=== PATIENT | male | born 1955 | race Caucasian/White ===

== ENCOUNTER → 2024-05-16 15:40 | Outpatient (REF) | payer OTHER, SELFPAY | LOC: MRI 3T 15:40 | PROVIDERS: ATTENDING PHYSICIAN Nurse Practitioner Adult Health; FAMILY PHYSICIAN Family Medicine | DX: I63.9 Cerebral infarction, unspecified (principal); R41.3 Other amnesia | CPT/HCPCS: 70553; A9575 ==

== ENCOUNTER 2025-01-28 10:51 | Inpatient (IN) | payer OTHER, SELFPAY ==
[2025-01-26] VITALS (9 sets, daily range): BP systolic 115–157; BP diastolic 68–89; BMI 21.7; BMI 21.3
[2025-01-26 09:54] LABS: Glucose - Point of Care 147 mg/dl (70-99)
--- NOTE | 2025-01-26 10:01 | ED.GENMED ---
History of Present Illness
General
Chief Complaint: Weakness
Source: patient
Exam Limitations: none
Time Seen by Provider: 01/26/25 09:51
History of Present Illness
History of Present Illness:
69yoM with a history of multiple prior CVA/TIAs with baseline R sided weakness and antiphospholipid syndrome on Coumadin presenting via EMS for evaluation after an episode of weakness. He went to bed at 11:30am and was normal at that time. Patient
woke up this morning around 9am and felt disoriented when he got of bed. He needed assistance standing but this is not unusual for him. He was on the toilet this morning and had a bowel movement. His R sided weakness worsened and son called EMS.
EMS arrived around 9:15am and his R side was completely flaccid. Symptoms resolved after a few minutes and he is now back to baseline. He is asymptomatic currently and is requesting to drink a coffee. He denies any headache, paresthesias, speech
disturbance, visual changes, chest pain, shortness of breath.
Phy Exam
General Physical Exam
General Presentation: well appearing and no apparent distress
General age: appears stated age
General Skin: warm and dry
General Habitus: normal
General Mental: alert
ENT Exam
ENT Exam: normocephalic
Eye Exam
Eye Exam: PERRL, EOMI and conjunctiva normal
Cardiovascular Exam
Cardiovascular Exam: regular rate/rhythm
Pulmonary Exam
Pulmonary Exam: lungs clear, no respiratory distress, no rales, no crackles and no rhonchi
Neurological Exam
Neurological Exam: alert, CN II-XII intact, speech normal and other (RUE is contracted. Mild R sided weakness which is baseline per patient. Able to lift RUE/RLE against gravity. No other focal neuro deficits noted.)
Katie Coma Scale
Eye Opening: Spontaneous
Verbal Response: Oriented
Motor Response: Obeys Commands
GCS Total Score: 15
Skin Exam
Skin Exam: normal color and warm/dry
Psychiatric Exam
Psychiatric Exam: normal mood/affect
Course
Orders/Labs/Results
Orders:
Orders
01/26/25 09:56
Cardiac Monitoring- Treatment ONCE
01/26/25 09:57
Electrocardiogram (*1) Urgent
Reason for Study: TIA/Stroke
CT Head W/o Iv Contrast Urgent
Comment:
Reason For Exam: TIA
EKG- Treatment ONCE
01/26/25 10:02
Complete Blood Count/With Diff Urgent
Comprehensive Metabolic Panel Urgent
Manual Differential Urgent
Troponin I Urgent
01/26/25 10:19
Prothrombin Time Urgent
01/26/25 11:35
Urinalysis Reflex To Culture Urgent
0.9% Sodium Chloride 500 ml [Nss] 500 ml IV BOLUS
01/26/25 12:18
Admit/Transfer Patient As Directed
Co-Sign Provider:
Level of Care: Observation services
Assign to:: Telemetry
Physician / Group: martha,yi
Diagnosis: TIA/CVA
Reason for Telemetry: CVA/TIA
Date to Stop Telemetry: 01/29/25
Time to Stop Telemetry: 11:00
PRN Pain Medication Management As Directed
May give lesser potent ordered pain med per pt: Yes
preference::
Protocol:: Medication orders for pain may be administered in a
manner that supports deferring to patient preference
when the pt is:
- Requesting an ordered lesser potent pain medication.
Least to most potent pain medications are defined
as: acetaminophen < NSAID < tramadol < opioids
(morphine, oxycodone, hydromorphone).
- Requesting a lesser dose of the same medication IF
ORDERED.
- Requesting a less intrusive route of administration
if both routes are prescribed by the provider (PO <
IV).
01/26/25 12:20
Code Status As Directed
Resuscitation Status: Full Code
01/29/25 11:00
DC Protocol for Telemetry ONCE
Abnormal Lab Results
01/26/25 01/26/25 01/26/25
09:53 10:02 10:19
RBC 4.36 L 10^6/uL
(4.70-6.10)
Hct 38.8 L %
(39.0-52.0)
Plt Count 74 L 10^3/uL
(130-400)
MPV 11.7 H fL
(7.4-10.4)
Abs Neuts (Manual) 7.3 H 10^3/uL
(1.4-6.5)
Segmented Neutrophils 78 H %
(42-75)
Band Neutrophils 10 H %
(0-3)
Lymphocytes (Manual) 4 L %
(20-51)
PT 15.6 H Sec
(11.4-14.6)
BUN 33 H mg/dl
(9-20)
Creatinine 1.8 H mg/dL
(0.7-1.3)
Glucose 159 H mg/dl
(70-99)
POC Glucose 147 H mg/dl
(70-99)
01/26/25 10:02
01/26/25 10:02
Vital Signs
Initial and Last Documented VS:
Initial Vital Signs
Pulse Resp BP Pulse Ox
66 18 122/68 96
01/26/25 09:53 01/26/25 09:53 01/26/25 09:53 01/26/25 09:53
Last Documented Vital Signs
Pulse Resp BP Pulse Ox
60 11 115/68 100
01/26/25 10:15 01/26/25 10:15 01/26/25 10:00 01/26/25 10:15
MDM/Problems Addressed
Differential Diagnosis Includes:
69yoM here after an episode of R sided weakness. Hx of multiple prior strokes with baseline R sided weakness. R side was completely flaccid on EMS arrival. Symptoms now resolved and he is back to baseline with no complaints. On Coumadin. VSS. He is
awake, alert, with a GCS of 15. RUE contracture noted. Able to lift RUE/RLE against gravity. No focal deficits noted. Differential diagnosis includes but is not limited to: TIA, stroke recrudescence, orthostasis, vasovagal episode
Initial ED plan: Check cardiac labs, INR, EKG, and CT head.
*EKG
Interpreted by ED Provider?: Yes
EKG Intrepretation Date: 01/26/25
Heart Rate: 59
Rate: bradycardiac
Rhythm: sinus
[place]: left axis deviation
Interval: normal interval
QRS Pattern: normal QRS
Ischemia: no ischemia
*Critical Care Note
Total Time (30-74mins, 75-104mins- exclusive of procedures): Not Applicable
Update Note
Update Note:
CT head negative for acute findings. Creatinine 1.8, unclear baseline although patient and caregiver deny any prior history of CKD. INR subtherapeutic at 1.2. Platelets 74 which caregiver states is baseline. IV fluid bolus ordered and patient
admitted for further management.
ED Attending Note
-
Portions of this chart may have been created with voice recognition software.� Occasional wrong word or��sound alike� substitutions may have occurred due to the inherent limitations of voice recognition software.
Discharge Plan
Departure
Patient Disposition: Admit
Date of Disposition: 01/26/25
Time of Disposition: 11:38
Presentation/result/management discussed w/ accepting MD/DO: Hospitalist
Discharge Problem:
Right sided weakness, Acute kidney injury, Subtherapeutic international normalized ratio (INR)
Prescriptions:
No Action
atorvastatin 20 mg Tablet
20 mg PO DAILY
donepezil 10 mg Tablet
10 mg PO DAILY
Colace 50 mg Capsule
50 mg PO DAILY
Theragen Tablet
1 tab PO DAILY
amlodipine 5 mg Tablet
5 mg PO DAILY
warfarin 5 mg Tablet
5 mg PO DAILY
escitalopram oxalate 20 mg Tablet
20 mg PO DAILY
cholecalciferol (vitamin D3) [Vitamin D3] 50 mcg (2,000 unit) Tablet
50 mcg PO DAILY
Referrals:
Lynsey Calzada NP [Family Provider] -
Interventions
Interventions:
*Risk Screen - Suicide Last Done: 01/26/25 09:53
*Neglect/Abuse Screening Last Done: 01/26/25 09:53
ED- Cardiac Assessment Last Done: 01/26/25 10:10
ED- Neurological Assessment Last Done: 01/26/25 10:10
ED- Pulmonary Assessment Last Done: 01/26/25 10:10
Discharge Date and Time
Print Language: SPANISH
[2025-01-26 10:19] LABS: Hematocrit 38.8 % (39.0-52.0); Hemoglobin 13.2 g/dL (13.0-18.0); Mean Corpuscular Hgb 30.3 pg (27.0-31.0); Red Blood Cell Count 4.36 10^6/uL (4.70-6.10); Red Cell Dist. Width 13.3 % (11.5-14.5); White Blood Cell Count 8.4 10^3/uL (4.8-10.8)
[2025-01-26 10:24] LABS: ALT (SGPT) 37 U/L (0-50); AST (SGOT) 37 U/L (17-59); Alkaline Phosphatase 84 U/L (38-126); Blood Urea Nitrogen 33 mg/dl (9-20); Calcium 9.3 mg/dl (8.4-10.2); Carbon Dioxide 26 mmol/L (22-30); Chloride 105 mmol/L (98-107); Estimated Creatinine Clearance 39 ml/min; Glucose 159 mg/dl (70-99); Potassium 3.9 mmol/L (3.5-5.1); Sodium 140 mmol/L (135-145); Total Bilirubin 0.7 mg/dl (0.2-1.3); eGFR 40.24
[2025-01-26 10:34] LABS: Troponin I < 0.012 ng/ml
[2025-01-26 10:43] LABS: Absolute Neutrophils -Man Diff 7.3 10^3/uL (1.4-6.5); Band Neutrophils 10 % (0-3); Eosinophils 1 % (0-6); Lymphocytes 4 % (20-51); Mean Platelet Volume 11.7 fL (7.4-10.4); Monocytes 7 % (2-9); Normal RBC Morphology Yes; Platelet Count 74 10^3/uL (130-400); Platelets Checked Yes; Segmented Neutrophils 78 % (42-75); Total Cells Counted 100
[2025-01-26 10:48] LABS: INR 1.21; PT 15.6 Sec (11.4-14.6)
--- NOTE | 2025-01-26 11:56 | HPS.HSE ---
Addendum entered and electronically signed by DAVIDSON Cates 01/26/25 19:16:
added Abdielppra as per neurology.
Original Note:
Family Physician
-
Family Physician: Lynsey Calzada NP
Chief Complaint
-
Worsening weakness
History of Present Illness
69yoM with a history of multiple prior CVA/TIAs with baseline R sided weakness and antiphospholipid syndrome on Coumadin presenting via EMS for evaluation after an episode of weakness. patient presented with confusion and worsening right sided
weakness. he complained of JOHNSTON.denied numbness, tingling, or swallowing issues. denied fever, chills, congestion, cough. denied chest pain, sob. denied abdominal pain,n,v,d.denied dysuria or hematuria. as per ER note, his right was flaccid when EMS
reached to help him, which patient does not remember.
head CT with no acute findings. admitting for further management.
Medical History
Past Medical History
Past Medical History: Reports Other
Additional Past Medical History:
Hypertension
CVA
CKD stage III
History of mononucleosis
Antiphospholipid antibody syndrome
Anticardiolipin antibody syndrome
A-fib
Hyperlipidemia
Thrombocytopenia
Retinal artery occlusion
Past Surgical History: Reports Other
Additional Past Surgical History:
wisdom Tooth extraction
Social History
Tobacco: Non-smoker
Alcohol: None
Drug: None
Personal: Single
Living: With Family
Family History
Family History: Not pertinent
Allergies / Home Medications
Allergies reflects when Allergies were last updated in [facility].
Home Medications with original date entered in [facility]
Allergy/Medication List:
Allergies
Allergy/AdvReac Type Severity Reaction Status Date / Time
Penicillins Allergy Rash Verified 01/26/25 10:01
Review of Systems
-
Constitutional: Reports No Symptoms
EENT: Reports No Symptoms
Respiratory: Reports No Symptoms
Cardiac: Reports No Symptoms
Abdomen/GI: Reports No Symptoms
: Reports No Symptoms
Musculoskeletal: Reports No Symptoms
Skin: Reports No Symptoms
Neurological: Reports Headache and Weakness
Endocrine: Reports No Symptoms
Hematologic/Lymphatic: Reports No Symptoms
Psych: Reports No Symptoms
Physical Exam
Vital Signs
Vital Signs
Pulse Resp BP Pulse Ox
60 11 115/68 100
01/26/25 10:15 01/26/25 10:15 01/26/25 10:00 01/26/25 10:15
Physical Exam
General: Well Developed, Well Nourished and No Apparent Distress
HEENT: NormoCephalic, Moist mucous membranes and Atraumatic
Respiratory: Clear
Cardiac: S1/S2 and Regular Rhythm; No Murmur or Rub
GI: Soft, Non Tender, Non Distended and Normal Bowel Sounds; No Organomegaly
Rectal: Deferred by Provider
Musculoskeletal: No Clubbing, No Cyanosis and No Edema
Skin: No Rash
Neuro: Nonfocal/grossly intact and Other (right arm contracted and weakness)
Psych: Calm
Laboratory Results
-
01/26/25 10:02
01/26/25 10:02
Laboratory Results
PT 15.6 Sec (11.4-14.6) H 01/26/25 10:19
INR 1.21 01/26/25 10:19
Total Bilirubin 0.7 mg/dl (0.2-1.3) 01/26/25 10:02
AST 37 U/L (17-59) 01/26/25 10:02
ALT 37 U/L (0-50) 01/26/25 10:02
Alkaline Phosphatase 84 U/L (38-126) 01/26/25 10:02
Troponin I < 0.012 ng/ml 01/26/25 10:02
Data Reviewed
-
CT Scan: Report Reviewed by me
Lab Data: Labs Reviewed by me
Impression/Plan
-
# Right-sided weakness/metabolic encephalopathy r/o acute CVA/TIA
# History of multiple CVA/TIA with baseline right-sided weakness
- Head CT with no impression of no acute intracranial abnormality
-obatin MRI of brain
-UA pending
-statin
-PT/OT
-obtain a1c, lipid profile
-neurology consult
# History of thrombocytopenia
- Platelets 74
-ctm
# CKD stage IIIa
- Creatinine 1.8
# Essential hypertension
- Norvasc continue with hold parameters
# Hyperlipidemia
- Statin continued
# Depression/anxiety/memory problem
- Citalopram, Aricept continued
# Antiphospholipid syndrome
- Warfarin continued
- INR 1.21
- Will give Coumadin 7.5 tonight
- Daily PT/INR
#DVT prophylaxis
-SCD
#CODE status
-full code
--- NOTE | 2025-01-26 12:03 | W.PN.UPDATE ---
Addendum entered and electronically signed by Mansoor Guerin MD 01/26/25 13:18:
HX thrombocytopenia
HX APLS on chr Coumadin
- Hold off on ASA for now
- awaited Neuro consult
Original Note:
Update Note
Progress Note Update
This note serves as an addendum to the H&P by associate java developer LENORA Rosa UP
HPI
69M HX multiple prior CVA/TIAs with baseline residual R sided weakness, HX antiphospholipid syndrome on Coumadin presenting via EMS :
- for evaluation after an episode of weakness
- went to bed at 11:30pm and was normal at that time.
- woke up this morning around 9am and felt disoriented when he got of bed.
- He needed assistance standing but this is not unusual for him.
- while he was on the toilet this morning and had a bowel movemen noted R sided weakness worsened and son called EMS. -- EMS arrived around 9:15am and his R side was completely flaccid.
- Symptoms resolved after a few minutes and he is now back to baseline.
- He is asymptomatic currently and is requesting to drink a coffee.
ROS:
He denies any headache, paresthesias, speech disturbance, visual changes, chest pain, shortness of breath.
Vital Signs
Pulse Resp BP Pulse Ox
60 11 115/68 100
01/26/25 10:15 01/26/25 10:15 01/26/25 10:00 01/26/25 10:15
Lab
01/26/25
10:02
WBC 8.4
Hgb 13.2
Plt Count 74 L
Segmented Neutrophils 78 H
Band Neutrophils 10 H
Potassium 3.9
Carbon Dioxide 26
BUN 33 H
Creatinine 1.8 H
eGFR 40.24
Troponin I < 0.012
HCT: No acute intracranial abnormality.
Reviewed VS:
PE
Gen: NAD , Nl speech and nl language
HEENT: chr Rt sided facilla weakness
Neck: supple
Lungs: CTA
Cor: RRR S1 S2
Abdomen: benign exam
BLENDER:alert, CN II-XII intact, speech normal and other (RUE is contracted. Mild R sided weakness which is baseline per patient. Able to lift RUE/RLE against gravity. No other focal neuro deficits noted.)
MS: no edema
Psych: nl mood and affect
Data
Allergies
Allergy/AdvReac Type Severity Reaction Status Date / Time
Penicillins Allergy Rash Verified 01/26/25 10:01
Home Medications
amlodipine 5 mg tablet 5 mg PO DAILY 01/26/25
atorvastatin 20 mg tablet 20 mg PO DAILY 01/26/25
cholecalciferol (vitamin D3) 50 mcg (2,000 unit) tablet (Vitamin D3) 50 mcg PO DAILY 01/26/25
docusate sodium 50 mg capsule 50 mg PO DAILY 01/26/25
donepezil 10 mg tablet 10 mg PO DAILY 01/26/25
escitalopram oxalate 20 mg tablet 20 mg PO DAILY 01/26/25
therapeutic multivitamin 1 tab PO DAILY 01/26/25
warfarin 5 mg tablet 5 mg PO DAILY 01/26/25
HCT: No acute intracranial abnormality.
NO PRIOR hospitalist or admission admission:
ASSESSMENT & PLAN
Pending Rx reconciliation
An episode of worsening prior chr R sided weakness with contracture with spontaneous resolution : TIA vs CVA
Reports back to baseline with no complaints.
HX multiple prior strokes with baseline R sided weakness.
On chr Coumadin by sub Rxtic INR 1.21
HX Chr gait dysfunction use walker
- RUE contracture
- Able to lift RUE/RLE against gravity.
- No new focal deficits noted
- NEG HCT for acute process
- ASA daily
- Brain MRI in AM
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
- Neurology consulted
HX HX antiphospholipid syndrome on Coumadin
- Subtherapeutic INR 1.21
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
- Daily INR
Renal insufficiency : Cr 1.8, eGFR 40
HX CKD3
- Avoid Nephrotoxic agents
Essential HTN
HLD
- c/w amlodipine 5 mg PO DAILY
- atorvastatin 20 mg PO DAILY
HX Vascular MCI vs Dementia
- on Donepezil ???
DVT Px: on Coumadin
Full code
Obs TLM
[2025-01-26] MEDS: NSS 500 IV (12:32)
--- NOTE | 2025-01-26 12:40 | CM ---
Met with patient. 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 Up full flight to bedroom and full bathroom. He does not drive. He uses rollator or rolling walker. He has shower seat and shower rails.
History of CVA. No history of SNF. Has [facility] come check his INR.
PCP Lynsey Calzada
Pharmacy:: [facility]
HIs primary contact is his neighbor João who is a nurse. Patient agreed to have Secondary contact, Son Rodrick added.
Patient does not do any primary care provider.
CM to watch for discharge needs.
PLAN: home.
[2025-01-26 14:28] LABS: Glycohemoglobin (HgbA1c) 5.4 % (4.0-5.6)
[2025-01-26] MEDS: COUMADIN 7.5 MG PO (17:45)
--- NOTE | 2025-01-26 18:50 | CON.NEURO ---
Neuro Assessment/Plan
Assessment
69 year old man multiple prior strokes, residual right sided weakness, Afib, antiphospholipid, on Coumadin, presents with episode of right sided flacid lasting several minutes. as he has had the same event 6 times, this event would be a simple
partial seizure. you can't have the same TIA 6 times.
brain MRI showing numerous chronic strokes left frontal, left parietal, left internal capsule, bilateral basal ganglia
Plan
Start Keppra 500 BID
stroke secondary prevention continue Coumadin, Lipitor 20
Consultation
Order
Date of Consultation: 01/26/25
Requesting Provider: Mansoor Guerin
Reason for Consult: right sided weakness
Subjective/Objective
Subjective Data
Date of Service: January 26, 2025
from h&p:
69yoM with a history of multiple prior CVA/TIAs with baseline R sided weakness and antiphospholipid syndrome on Coumadin presenting via EMS for evaluation after an episode of weakness. patient presented with confusion and worsening right sided
weakness. he complained of JOHNSTON.denied numbness, tingling, or swallowing issues. denied fever, chills, congestion, cough. denied chest pain, sob. denied abdominal pain,n,v,d.denied dysuria or hematuria. as per ER note, his right was flaccid when EMS
reached to help him, which patient does not remember.
This afternoon patient tells me that he actually does remember the event, and that it has happened ~6 times though he hadn't presented for evaluation
Objective Data
Vital Signs
Temp Pulse Resp BP Pulse Ox
37.2 C 80 18 120/70 98
01/26/25 15:32 01/26/25 15:32 01/26/25 15:32 01/26/25 15:32 01/26/25 15:32
Lab Results
01/26/25 10:02
01/26/25 10:02
PT 15.6 Sec (11.4-14.6) H 01/26/25 10:19
INR 1.21 01/26/25 10:19
Sodium 140 mmol/L (135-145) 01/26/25 10:02
Potassium 3.9 mmol/L (3.5-5.1) 01/26/25 10:02
BUN 33 mg/dl (9-20) H 01/26/25 10:02
Glucose 159 mg/dl (70-99) H 01/26/25 10:02
Calcium 9.3 mg/dl (8.4-10.2) 01/26/25 10:02
Patient Allergies
Penicillins Allergy (Verified 01/26/25 10:01)
Rash
Physical Exam
-
AAOx3, speech clear, language intact
VFF, EOMI, right facial droop
right spastic hemiparesis 5
Medications
-
Active Medications
Generic Name Dose Route Start Last Admin
Trade Name Freq PRN Reason Stop Dose Admin
Acetaminophen 650 mg 01/26/25 13:43
Acetaminophen 650 Mg Rectal Suppository RECTAL 02/23/25 13:42
Q4HPRN PRN
JOHNSTON, mild pain, or temp >100.4F
Acetaminophen 650 mg 01/26/25 13:43
Acetaminophen 325 Mg Tablet PO 02/23/25 13:42
Q4HPRN PRN
JOHNSTON, mild pain, or temp >100.4F
Amlodipine Besylate 5 mg 01/27/25 08:00
Amlodipine 5 Mg Tablet PO 02/24/25 07:59
DAILY ELIDIA
Atorvastatin Calcium 20 mg 01/27/25 08:00
Atorvastatin (Lipitor) 20 Mg Tablet PO 02/24/25 07:59
DAILY ELIDIA
Cholecalciferol 50 mcg 01/27/25 08:00
Cholecalciferol (Vitamin D3) 50 Mcg Tablet (2,000 Units) PO 02/24/25 07:59
DAILY ELIDIA
Docusate Sodium 100 mg 01/27/25 08:00
Docusate Sodium 100 Mg Capsule PO 02/24/25 07:59
DAILY ELIDIA
Donepezil HCl 10 mg 01/27/25 08:00
Donepezil Hcl 10 Mg Tablet PO 02/24/25 07:59
DAILY ELIDIA
Escitalopram Oxalate 20 mg 01/27/25 08:00
Escitalopram 20 Mg Tablet PO 02/24/25 07:59
DAILY ELIDIA
Warfarin Sodium 5 mg 01/27/25 20:00
Warfarin 5 Mg Tablet PO 02/01/25 19:59
DAILY ELIDIA
Home Medications
�Medication �Instructions �Recorded
amlodipine 5 mg tablet 5 mg PO DAILY 01/26/25
atorvastatin 20 mg tablet 20 mg PO DAILY 01/26/25
cholecalciferol (vitamin D3) 50 50 mcg PO DAILY 01/26/25
mcg (2,000 unit) tablet (Vitamin
D3)
docusate sodium 50 mg capsule 50 mg PO DAILY 01/26/25
donepezil 10 mg tablet 10 mg PO DAILY 01/26/25
escitalopram oxalate 20 mg tablet 20 mg PO DAILY 01/26/25
therapeutic multivitamin 1 tab PO DAILY 01/26/25
warfarin 5 mg tablet 5 mg PO DAILY 01/26/25
[2025-01-26] MEDS: KEPPRA 500 MG PO (20:03)
[2025-01-26 22:52] LABS: Urine Albumin 3+ (Neg - Trace); Urine Bilirubin Negative (Negative); Urine Character Clear (Clear); Urine Color Yellow; Urine Glucose Negative (Negative); Urine Ketone Negative (Negative); Urine Leukocyte Negative (Negative); Urine Nitrite Negative (Negative); Urine Occult Blood Negative (Negative); Urine Urobilinogen Negative (Neg - 1+)
[2025-01-26 23:02] LABS: Urine Mucus Few; Urine Squamous Cell 0-2 /LPF (Few)
[2025-01-26 23:04] LABS: Urine Bacteria Moderate (Negative); Urine Red Blood Cell 0-2 /HPF (0-2); Urine White Cell 0-2 /HPF (0-5)
[2025-01-27] VITALS (8 sets, daily range): BP systolic 126–141; BP diastolic 62–78; PULSE 67–69; O2SAT 98
[2025-01-27] MEDS: NORVASC 5 MG PO (07:23)
[2025-01-27] MEDS: ARICEPT 10 MG PO (07:23)
[2025-01-27] MEDS: LIPITOR 20 MG PO (07:23)
[2025-01-27] MEDS: LEXAPRO 20 MG PO (07:23)
[2025-01-27] MEDS: KEPPRA 500 MG PO ×2 (07:23→19:57)
[2025-01-27] MEDS: VITAMIN D3 (cholecalciferol) 50 MCG PO (07:23)
[2025-01-27] MEDS: COLACE 100 MG PO (07:24)
[2025-01-27 07:56] LABS: INR 1.28; PT 16.3 Sec (11.4-14.6)
--- NOTE | 2025-01-27 08:03 | W.PN.HOSP.TC ---
Addendum entered and electronically signed by Zhou Garcia MD 01/27/25 16:40:
Updated son on phone 01/27
Original Note:
Today's Communication/Plan
-
see bold
Assessment / Plan
Assessment / Plan
HPI: 69yoM with a history of multiple prior CVA/TIAs with baseline R sided weakness and antiphospholipid syndrome on Coumadin presenting via EMS for evaluation after an episode of weakness. patient presented with confusion and worsening right sided
weakness. he complained of JOHNSTON.denied numbness, tingling, or swallowing issues. denied fever, chills, congestion, cough. denied chest pain, sob. denied abdominal pain,n,v,d.denied dysuria or hematuria. As per ER note, his right was flaccid when EMS
reached to help him, which patient does not remember.
#Transient right sided flaccidity
Brain MRI shows numerous chronic strokes
Appreciate neurology input, who feels that this is a simple partial seizure
Patient tends to present with transient right-sided plasticity, he has had the same event 6 times, therefore TIA resulting in the same symptoms 6 time is unlikely
Neurology recommends Keppra 500 mg twice a day
PT rec acute rehab vs SNF
#Antiphospholipid syndrome
INR subtherapeutic on Coumadin
Start therapeutic Lovenox to bridge until INR becomes therapeutic
Currently on Coumadin 5 mg daily at home�he denies missing any doses
Increase coumadin to 7.5 mg daily, check daily INR
#Essential hypertension
Continue Norvasc with hold parameters
#Hyperlipidemia
Continue statin
#Stage IIIa CKD
Creatinine around baseline, continue to monitor
#Thrombocytopenia
Monitor
#Anxiety/depression/cognitive impairment
Continue SSRI, Aricept
DVT prophylaxis�therapeutic Lovenox to bridge to Coumadin as above
Full code
Total time spent to see the patient on the floor, examine the patient, review data and lab results, discuss treatment plan with patient, nursing staff around 51 minutes.
Physical Exam
General: No acute distress
HEENT: Normocephalic, Atraumatic, EOMI, MMM
Respiratory: Clear to Auscultation bilaterally
Cardiac: Normal S1/S2, Regular Rate and Rhythm
GI: Soft, Nontender, Nondistended, Normal Bowel Sounds
Extremities: No Clubbing, Cyanosis, or Edema
Neuro: Mild cognitive impairment noted
Psych: Calm, Cooperative
Anticipated Discharge: Within 24 hours
Subjective/Interval History
-
Date of Service: January 27, 2025
Patient reports resolution of right-sided weakness. He reports taking his Coumadin doses at home as directed. No chest pain, no shortness of breath. No fever, no vomiting.
Objective Data
-
Labs:
Laboratory Results
01/27/25
07:16
WBC Pending
Hgb Pending
Hct Pending
Plt Count Pending
PT 16.3 H
INR 1.28
Sodium Pending
Potassium Pending
Chloride Pending
Carbon Dioxide Pending
BUN Pending
Creatinine Pending
Glucose Pending
Calcium Pending
Vital Signs:
Vital Signs
Temp Pulse Resp BP Pulse Ox
98.5 F 63 18 133/75 98
01/27/25 07:37 01/27/25 07:37 01/27/25 07:37 01/27/25 07:37 01/27/25 07:37
I&O
01/26/25 01/27/25 01/28/25
06:59 06:59 06:59
Intake Total 540 / 540
Output Total 800 / 800
Balance -260 / -260
[2025-01-27 08:12] LABS: Blood Urea Nitrogen 30 mg/dl (9-20); Carbon Dioxide 25 mmol/L (22-30); Chloride 107 mmol/L (98-107); Estimated Creatinine Clearance 43 ml/min; Glucose 94 mg/dl (70-99); HDL Cholesterol 43 mg/dl; LDL Cholesterol, Calculated 70 mg/dl; Potassium 3.7 mmol/L (3.5-5.1); Sodium 140 mmol/L (135-145); Total Cholesterol 137 mg/dl (50-199); Triglyceride 120 mg/dl (10-149); Very Low Density Lipoprotein 24 mg/dl (0-30); eGFR 46.35
[2025-01-27 08:35] LABS: Hematocrit 35.5 % (39.0-52.0); Hemoglobin 12.1 g/dL (13.0-18.0); Mean Corp Hgb Conc. 34.1 g/dL (33.0-37.0); Mean Corpuscular Volume 88.1 fL (80.0-94.0); Mean Platelet Volume 11.3 fL (7.4-10.4); Platelet Count 62 10^3/uL (130-400); Red Blood Cell Count 4.03 10^6/uL (4.70-6.10); Red Cell Dist. Width 13.4 % (11.5-14.5); White Blood Cell Count 1.7 10^3/uL (4.8-10.8)
--- NOTE | 2025-01-27 11:56 | PTOTSP ---
Speech Therapy
Presentation: Patient was partially oriented and cooperative. Patient's speech and language appeared to be WNL during conversation. Patient's pragmatics appeared to be decreased as patient demonstrated difficulty with topic maintenance and
monitoring inappropriate remarks.
Swallowing Function: REWORK OPERATOR observed patient with several bites of regular consistency solids and sips of thin liquids (straw) in which patient appeared to tolerate as he did not exhibit any overt clinical s/sx of aspiration. Patient did, of note,
express difficulty with visualizing his tray during breakfast as his eye glasses are not with him at the hospital.
Recommendations:
1) Regular consistency solids and thin liquids
2) Standard aspiration precautions
3) Medications as tolerated
4) Consideration of cognitive linguistic evaluation given memory complaints and pragmatic difficulty
Plan: REWORK OPERATOR will continue to follow to ensure tolerance; pending hospitalization.
[2025-01-27] MEDS: LOVENOX 70 MG SC (13:05)
[2025-01-27 14:17] LABS: % Basophils 1.2 % (0-2); % Eosinophils 1.2 % (0-6); % Immature Granulocytes 0.6 % (0-0.5); % Lymphocytes 22.6 % (20.5-51.1); % Neutrophils 55.4 % (42.2-75.2); Absolute Lymphocytes 0.4 10^3/uL (1.2-3.4); Absolute Monocytes 0.3 10^3/uL (0.1-0.6); Absolute Neutrophils 0.9 10^3/uL (1.4-6.5); Nucleated Red Blood Cells % 0 % (-)
[2025-01-27] MEDS: COUMADIN 7.5 MG PO (18:30)
[2025-01-28] VITALS (8 sets, daily range): BP systolic 131–150; BP diastolic 71–86; PULSE 78
[2025-01-28] MEDS: LOVENOX 70 MG SC ×3 (00:05→20:13)
--- NOTE | 2025-01-28 02:30 | PTCARENOTE ---
Pt took of tele monitor and refused to have it put back on. Up until this point, pt has been intermittently taking off gown and tele leads, but allowing us to put them back on. House Provider, Ernestine Ruano, notified and aware. Will continue to
monitor.
--- NOTE | 2025-01-28 06:15 | PTCARENOTE ---
After assisting pt in using the urinal and getting back in his hospital gown, pt agreeable to wear tele monitor again.
[2025-01-28 06:55] LABS: Hematocrit 37.4 % (39.0-52.0); Hemoglobin 13.2 g/dL (13.0-18.0); Mean Corp Hgb Conc. 35.3 g/dL (33.0-37.0); Mean Corpuscular Hgb 30.9 pg (27.0-31.0); Mean Corpuscular Volume 87.6 fL (80.0-94.0); Mean Platelet Volume 10.8 fL (7.4-10.4); Platelet Count 68 10^3/uL (130-400); Red Blood Cell Count 4.27 10^6/uL (4.70-6.10); Red Cell Dist. Width 13.4 % (11.5-14.5); White Blood Cell Count 2.2 10^3/uL (4.8-10.8)
[2025-01-28 06:56] LABS: INR 1.59; PT 19.2 Sec (11.4-14.6)
[2025-01-28 10:13] LABS: Blood Urea Nitrogen 23 mg/dl (9-20); Calcium 9.2 mg/dl (8.4-10.2); Carbon Dioxide 22 mmol/L (22-30); Chloride 108 mmol/L (98-107); Estimated Creatinine Clearance 45 ml/min; Glucose 93 mg/dl (70-99); Potassium 4.2 mmol/L (3.5-5.1); Sodium 142 mmol/L (135-145); eGFR 50.08
[2025-01-28] MEDS: NORVASC 5 MG PO (10:13)
[2025-01-28] MEDS: ARICEPT 10 MG PO (10:14)
[2025-01-28] MEDS: LEXAPRO 20 MG PO (10:14)
[2025-01-28] MEDS: VITAMIN D3 (cholecalciferol) 50 MCG PO (10:14)
[2025-01-28] MEDS: COLACE 100 MG PO (10:14)
[2025-01-28] MEDS: KEPPRA 500 MG PO ×2 (10:14→20:13)
[2025-01-28] MEDS: LIPITOR 20 MG PO (10:14)
--- NOTE | 2025-01-28 11:13 | CON.NEURO ---
Neuro Assessment/Plan
Assessment
69 year old man multiple prior strokes, residual right sided weakness, Afib, antiphospholipid, on Coumadin, presents with episode of right sided flacid lasting several minutes. as he has had the same event 6 times, this event would be a simple
partial seizure. you can't have the same TIA 6 times.
brain MRI showing numerous chronic strokes left frontal, left parietal, left internal capsule, bilateral basal ganglia
Plan
Start Keppra 500 BID
stroke secondary prevention continue Coumadin, Lipitor 20
Consultation
Order
Date of Consultation: 01/28/25
Neurology follow-up note
HPI: This is a 69-year-old man who presented to [facility] on with fluctuating right-sided weakness.
Mr. Salazar endorses chronic right sided weakness since his stroke. He is not sure when it was his stroke but states that his right arm has been weak requiring him to use his left hand to feed himself.
The patient has history of cognitive impairment and his medications are being administered by his son. He is unable to recall the name of his neurologist or primary care physician.
He denies numbness in his right arm, headaches, changes in vision, vertigo, seizures, difficulties with swallowing, speech, abnormal movements, or visual hallucinations. He also denies any recent changes in the severity of his right arm weakness
Regarding his medical history, the patient reports having his first stroke approximately a year and a half ago, which was treated at [facility]. He denies a family history of strokes or forgetfulness. The patient reports minimal alcohol use,
stating he 'had a beer,' and denies a history of smoking.
ER VS: 122/68, 66, afebrile
EKG: Sinus bradycardia, QTc�421 ms
PDMP: None
Labs: INR�1.21, WBCs 8.4�2.2, platelets�74�68, creatinine�1.6�1.5, normal sodium, glucose, LDL�70, hemoglobin A1c�5.4
CT head wo contrast�no acute abnormalities, moderate atrophy and chronic multi territorial infarct.
CTA head (05/02/2023)�no focal hemodynamically significant stenosis, aneurysm or occlusion.
PMH: A-fib, MCI, history of strokes, antiphospholipid syndrome on warfarin, thrombocytopenia, right cerebellopontine angle arachnoid cyst, HTN, DLP, CKD, cervical spinal stenosis, vitamin D deficiency, BATOOL
PSH: [place] tooth extraction
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
All: Penicillins
ROS: Constitutional: Negative. Negative for chills, fever and unexpected weight change.
HENT: Negative for ear pain, hearing loss, tinnitus and trouble swallowing.
Eyes: Negative. Negative for photophobia, pain and visual disturbance.
Respiratory: Negative for cough, choking and shortness of breath.
Cardiovascular: Negative for chest pain, palpitations and leg swelling.
Gastrointestinal: Negative for abdominal pain and vomiting.
Endocrine: Negative. Negative for cold intolerance.
Genitourinary: Negative for dysuria, flank pain and urgency.
Musculoskeletal: Negative for back pain, gait problem, neck pain and neck stiffness.
Skin: Negative for rash.
Allergic/Immunologic: Negative. Negative for immunocompromised state.
Neurological: Negative for dizziness, tremors, seizures, speech difficulty, numbness and headaches.
Psychiatric/Behavioral: Negative for behavioral problems, confusion and hallucinations.
General: Well developed. In no acute distress.
Cardio: Regular rate and rhythm without murmur. Extremities are without cyanosis or edema.
Neuro:
Mental Status: Alert, oriented to name, month, year, person. Impaired attention and comprehension. Unable to cross midline. Nonfluent. No hemineglect
Cranial Nerves: Pupils are equally round and reactive to light. EOMs full. Visual nina full to confrontation. No ptosis. No nystagmus. V1-V3 intact to light touch and pinprick bilaterally, symmetric. Face symmetric. Impaired hearing AU.
The palate elevated well. SCMs and traps 5/5. Tongue midline. No dysarthria.
Motor: Right pronator drift. Right distal more than proximal arm weakness. Mild right leg weak (Right elbow�antigravity)
Reflexes: Negative clonus bilaterally.
Sensory: Limited exam due to poor attention
Coordination: Dysmetria on the left
Gait: deferred
Assessment and Plan:
I. Fluctuating right hemiparesis.
II. Chronic encephalopathy (vascular, metabolic,? neurodegenerative)
III. Chronic multi territorial infarct, chronic R vert occlusion
IV. Antiphospholipid syndrome
V. Subtherapeutic INR
. Thrombocytopenia
-Continue Telemetry monitoring
-Brain MRI without batool
-Carotid Doppler ultrasound
-Please obtain medical records from [facility]
-Would hold Coumadin until brain MRI is completed
-Will contact patient's son to obtain collateral history
-DVT prophylaxis.
I personally reviewed all radiology and labs along with past medical records pertinent to current medical problems. Total time spent in patient care is 45 minutes.
Thank you for allowing us to participate in the care of this patient. We will continue to follow. Please do not hesitate to contact us with any questions or concerns.
Subjective/Objective
Subjective Data
Date of Service: January 28, 2025
Objective Data
Vital Signs
Temp Pulse Resp BP Pulse Ox
36.8 C 66 17 137/74 97
01/28/25 07:00 01/28/25 07:00 01/28/25 07:00 01/28/25 07:00 01/28/25 07:00
Lab Results
01/28/25 06:15
01/28/25 06:15
PT 19.2 Sec (11.4-14.6) H 01/28/25 06:15
INR 1.59 01/28/25 06:15
Sodium 142 mmol/L (135-145) 01/28/25 06:15
Potassium 4.2 mmol/L (3.5-5.1) 01/28/25 06:15
BUN 23 mg/dl (9-20) H 01/28/25 06:15
Glucose 93 mg/dl (70-99) 01/28/25 06:15
Calcium 9.2 mg/dl (8.4-10.2) 01/28/25 06:15
LDL Cholesterol, Calc 70 mg/dl 01/27/25 07:16
Patient Allergies
Penicillins Allergy (Verified 01/26/25 10:01)
Rash
Medications
-
Active Medications
Generic Name Dose Route Start Last Admin
Trade Name Freq PRN Reason Stop Dose Admin
Acetaminophen 650 mg 01/26/25 13:43
Acetaminophen 650 Mg Rectal Suppository RECTAL 02/23/25 13:42
Q4HPRN PRN
[place], mild pain, or temp >100.4F
Acetaminophen 650 mg 01/26/25 13:43
Acetaminophen 325 Mg Tablet PO 02/23/25 13:42
Q4HPRN PRN
[place], mild pain, or temp >100.4F
Amlodipine Besylate 5 mg 01/27/25 08:00 01/28/25 10:13
Amlodipine 5 Mg Tablet PO 02/24/25 07:59 5 mg
DAILY ELIDIA Administration
Atorvastatin Calcium 20 mg 01/27/25 08:00 01/28/25 10:14
Atorvastatin (Lipitor) 20 Mg Tablet PO 02/24/25 07:59 20 mg
DAILY ELIDIA Administration
Cholecalciferol 50 mcg 01/27/25 08:00 01/28/25 10:14
Cholecalciferol (Vitamin D3) 50 Mcg Tablet (2,000 Units) PO 02/24/25 07:59 50 mcg
DAILY ELIDIA Administration
Docusate Sodium 100 mg 01/27/25 08:00 01/28/25 10:14
Docusate Sodium 100 Mg Capsule PO 02/24/25 07:59 100 mg
DAILY ELIDIA Administration
Donepezil HCl 10 mg 01/27/25 08:00 01/28/25 10:14
Donepezil Hcl 10 Mg Tablet PO 02/24/25 07:59 10 mg
DAILY ELIDIA Administration
Enoxaparin Sodium 70 mg 01/27/25 10:35 01/28/25 10:13
Enoxaparin Sodium 80 Mg/0.8 Ml Syringe SC 02/24/25 10:34 70 mg
Q12 ELIDIA Administration
Escitalopram Oxalate 20 mg 01/27/25 08:00 01/28/25 10:14
Escitalopram 20 Mg Tablet PO 02/24/25 07:59 20 mg
DAILY ELIDIA Administration
Levetiracetam 500 mg 01/26/25 20:00 01/28/25 10:14
Levetiracetam 500 Mg Regular Release Tablet PO 02/23/25 19:59 500 mg
BID ELIDIA Administration
Warfarin Sodium 7.5 mg 01/27/25 18:00 01/27/25 18:30
Warfarin 7.5 Mg Tablet PO 02/01/25 17:59 7.5 mg
QPM ELIDIA Administration
Home Medications
�Medication �Instructions �Recorded
amlodipine 5 mg tablet 5 mg PO DAILY 01/26/25
atorvastatin 20 mg tablet 20 mg PO DAILY 01/26/25
cholecalciferol (vitamin D3) 50 50 mcg PO DAILY 01/26/25
mcg (2,000 unit) tablet (Vitamin
D3)
docusate sodium 50 mg capsule 50 mg PO DAILY 01/26/25
donepezil 10 mg tablet 10 mg PO DAILY 01/26/25
escitalopram oxalate 20 mg tablet 20 mg PO DAILY 01/26/25
therapeutic multivitamin 1 tab PO DAILY 01/26/25
warfarin 5 mg tablet 5 mg PO DAILY 01/26/25
Vital Signs and Labs
-
Vital Signs and Labs:
Vital Signs
Temp Pulse Resp BP Pulse Ox
36.8 C 66 17 137/74 97
01/28/25 07:00 01/28/25 07:00 01/28/25 07:00 01/28/25 07:00 01/28/25 07:00
Lab Results
01/28/25 06:15
01/28/25 06:15
PT 19.2 Sec (11.4-14.6) H 01/28/25 06:15
INR 1.59 01/28/25 06:15
Sodium 142 mmol/L (135-145) 01/28/25 06:15
Potassium 4.2 mmol/L (3.5-5.1) 01/28/25 06:15
BUN 23 mg/dl (9-20) H 01/28/25 06:15
Glucose 93 mg/dl (70-99) 01/28/25 06:15
Calcium 9.2 mg/dl (8.4-10.2) 01/28/25 06:15
LDL Cholesterol, Calc 70 mg/dl 01/27/25 07:16
Medications
-
Medications:
Generic Name Dose Route Start Last Admin
Trade Name Freq PRN Reason Stop Dose Admin
Acetaminophen 650 mg 01/26/25 13:43
Acetaminophen 650 Mg Rectal Suppository RECTAL 02/23/25 13:42
Q4HPRN PRN
[place], mild pain, or temp >100.4F
Acetaminophen 650 mg 01/26/25 13:43
Acetaminophen 325 Mg Tablet PO 02/23/25 13:42
Q4HPRN PRN
[place], mild pain, or temp >100.4F
Amlodipine Besylate 5 mg 01/27/25 08:00 01/28/25 10:13
Amlodipine 5 Mg Tablet PO 02/24/25 07:59 5 mg
DAILY ELIDIA Administration
Atorvastatin Calcium 20 mg 01/27/25 08:00 01/28/25 10:14
Atorvastatin (Lipitor) 20 Mg Tablet PO 02/24/25 07:59 20 mg
DAILY ELIDIA Administration
Cholecalciferol 50 mcg 01/27/25 08:00 01/28/25 10:14
Cholecalciferol (Vitamin D3) 50 Mcg Tablet (2,000 Units) PO 02/24/25 07:59 50 mcg
DAILY ELIDIA Administration
Docusate Sodium 100 mg 01/27/25 08:00 01/28/25 10:14
Docusate Sodium 100 Mg Capsule PO 02/24/25 07:59 100 mg
DAILY ELIDIA Administration
Donepezil HCl 10 mg 01/27/25 08:00 01/28/25 10:14
Donepezil Hcl 10 Mg Tablet PO 02/24/25 07:59 10 mg
DAILY ELIDIA Administration
Enoxaparin Sodium 70 mg 01/27/25 10:35 01/28/25 10:13
Enoxaparin Sodium 80 Mg/0.8 Ml Syringe SC 02/24/25 10:34 70 mg
Q12 ELIDIA Administration
Escitalopram Oxalate 20 mg 01/27/25 08:00 01/28/25 10:14
Escitalopram 20 Mg Tablet PO 02/24/25 07:59 20 mg
DAILY ELIDIA Administration
Levetiracetam 500 mg 01/26/25 20:00 01/28/25 10:14
Levetiracetam 500 Mg Regular Release Tablet PO 02/23/25 19:59 500 mg
BID ELIDIA Administration
Warfarin Sodium 7.5 mg 01/27/25 18:00 01/27/25 18:30
Warfarin 7.5 Mg Tablet PO 02/01/25 17:59 7.5 mg
QPM ELIDIA Administration
Home Medications
-
Home Medications
amlodipine 5 mg tablet 5 mg PO DAILY 01/26/25
atorvastatin 20 mg tablet 20 mg PO DAILY 01/26/25
cholecalciferol (vitamin D3) 50 mcg (2,000 unit) tablet (Vitamin D3) 50 mcg PO DAILY 01/26/25
docusate sodium 50 mg capsule 50 mg PO DAILY 01/26/25
donepezil 10 mg tablet 10 mg PO DAILY 01/26/25
escitalopram oxalate 20 mg tablet 20 mg PO DAILY 01/26/25
therapeutic multivitamin 1 tab PO DAILY 01/26/25
warfarin 5 mg tablet 5 mg PO DAILY 01/26/25
--- NOTE | 2025-01-28 11:29 | W.PN.HOSP.TC ---
Today's Communication/Plan
-
neuro follow up
follow INR and CBC in AM
Assessment / Plan
Assessment / Plan
69yo M with PMHx of CVA with residual RUE and RLE weakness, APLS on COumadin, progressive vascular dementia, HTN, HLD brought to the hospital with recurrent confusion and RUE weakness similar to prior. He hassame issues on 6 occasions over past
years. As per medical POA - patient has worsening intermittent weakness in RUE for a year and was seeing neurologist in [facility] for that. Stroke was identified as a reason for neurologic deficit. His INR was also subtherapeutic couple of
weeks ago and he was given one additional dose of Warfaring for that.
A/P:
#RUE weakness, fluctuating with PMHX of CVA
#Seizure d/o
Neurologist evaluated: low chance to have repoeated strokes with similar symptoms, concern for seizure activity
Keppra
Seizure precautions
PT/OT - acute rehab
cont home meds
#Advanced dementia, vascular
#Chronic thrombocytopenia
#Leukopenia
patient on the baseline has poor short term memory
Outpatient Neurologist
Concern for amiloid angiopathy - recommended to follow up with established direct of real estate for MGUS w/u
Medical POA will get in touch with direct of real estate to find out if leukopenia new - if so, then might need direct of real estate
#Subtherapeutic INR with APLS
family and friend denied non-compliance
Lovenox bridging warfarin higher dose
#HLD
#essential HTN
#CKD stage 3a
cont home meds
DVT ppx lovenox
Full code
I have spent at least 55min reviewing hcart, test results, communication with consultants and providing direct patient care
Anticipated Discharge: 24 - 48 hours
Subjective/Interval History
-
Date of Service: January 28, 2025
Objective Data
-
Labs:
Laboratory Results
01/28/25
06:15
WBC 2.2 L*
Hgb 13.2
Hct 37.4 L
Plt Count 68 L
PT 19.2 H
INR 1.59
Sodium 142
Potassium 4.2
Chloride 108 H
Carbon Dioxide 22
BUN 23 H
Creatinine 1.5 H
Glucose 93
Calcium 9.2
Vital Signs:
Vital Signs
Temp Pulse Resp BP Pulse Ox
98.2 F 66 17 137/74 97
01/28/25 07:00 01/28/25 07:00 01/28/25 07:00 01/28/25 07:00 01/28/25 07:00
I&O
01/27/25 01/28/25 01/29/25
06:59 06:59 06:59
Intake Total 540 / 540 720 / 720
Output Total 800 / 800 200 / 200
Balance -260 / -260 520 / 520
Review of Systems
-
History Source: Patient
All other systems: Reviewed and negative
Physical Exam
-
General: No Apparent Distress
HEENT: Normocephalic
Respiratory: Clear to Auscultation
GI: Soft, Nontender and Nondistended
Musculoskeletal: No Clubbing, No Cyanosis and No Edema
Skin: Warm
Neuro: Awake, Alert and Other (RUL weakness)
Psych: Calm and Apparent Dementia
--- NOTE | 2025-01-28 11:36 | CM ---
Chart reviewed and human services case manager met with patient and discussed physical therapy recommendations and patient is refusing acute rehab and skilled rehab, patient is adamant that he is returning to home when stable.
Cost of Lovenox 80mg Q12 X 5 days is $55.73
Plan; To follow with patient progress and follow up with physician and patient.
--- NOTE | 2025-01-28 16:37 | W.PN.UPDATE ---
Update Note
Progress Note Update
As per POA: leukopenia with WBC 2.8 in May 2024 - seems to be chronic
[2025-01-28] MEDS: TYLENOL 650 MG PO (22:47)
[2025-01-29 03:51] VITALS: BP 134/74
[2025-01-29 07:00] VITALS: BP 135/78
[2025-01-29 08:11] LABS: INR 1.74; PT 20.5 Sec (11.4-14.6)
[2025-01-29 08:28] LABS: Hemoglobin 12.5 g/dL (13.0-18.0); Mean Corp Hgb Conc. 34.7 g/dL (33.0-37.0); Mean Corpuscular Hgb 30.3 pg (27.0-31.0); Mean Corpuscular Volume 87.4 fL (80.0-94.0); Mean Platelet Volume 10.8 fL (7.4-10.4); Platelet Count 75 10^3/uL (130-400); Red Blood Cell Count 4.12 10^6/uL (4.70-6.10); Red Cell Dist. Width 13.2 % (11.5-14.5); White Blood Cell Count 2.1 10^3/uL (4.8-10.8)
[2025-01-29] MEDS: LEXAPRO 20 MG PO (08:53)
[2025-01-29] MEDS: LIPITOR 20 MG PO (08:53)
[2025-01-29] MEDS: COLACE 100 MG PO (08:53)
[2025-01-29] MEDS: ARICEPT 10 MG PO (08:53)
[2025-01-29] MEDS: NORVASC 5 MG PO (08:53)
[2025-01-29] MEDS: KEPPRA 500 MG PO ×2 (08:53→20:05)
[2025-01-29] MEDS: VITAMIN D3 (cholecalciferol) 50 MCG PO (08:53)
[2025-01-29] MEDS: LOVENOX 70 MG SC ×2 (08:55→20:05)
--- NOTE | 2025-01-29 10:43 | W.PN.HOSP.TC ---
Today's Communication/Plan
-
MRI brain
Assessment / Plan
Assessment / Plan
69yo M with PMHx of ITP, CVA with residual RUE and RLE weakness, APLS on COumadin, progressive vascular dementia, HTN, HLD brought to the hospital with recurrent confusion and RUE weakness similar to prior. He hassame issues on 6 occasions over past
years. As per medical POA - patient has worsening intermittent weakness in RUE for a year and was seeing neurologist in [facility] for that. Stroke was identified as a reason for neurologic deficit. His INR was also subtherapeutic couple of
weeks ago and he was given one additional dose of Warfaring for that.
A/P:
#RUE weakness, fluctuating with PMHX of CVA
#Seizure d/o
Neurologist evaluated: low chance to have repeated strokes with similar symptoms, concern for seizure activity, MRI brain ordered on 01/28/25
Keppra
Seizure precautions
PT/OT - acute rehab
cont home meds
#Advanced dementia, vascular
#Chronic thrombocytopenia
#Leukopenia, chronic
patient on the baseline has poor short term memory
Outpatient Neurologist
Concern for amyloid angiopathy - recommended to follow up with established type bar and segment assembler for MGUS w/u
Medical POA follow with type bar and segment assembler for SPEP/UPEP
#Subtherapeutic INR with APLS
family and friend denied non-compliance
Lovenox bridging warfarin higher dose - on hold awaiting for MRI brain
#HLD
#essential HTN
#CKD stage 3a
cont home meds
DVT ppx lovenox
Full code
I have spent at least 55min reviewing hcart, test results, communication with consultants and providing direct patient care
Anticipated Discharge: Within 24 hours
Subjective/Interval History
-
Date of Service: January 29, 2025
Objective Data
-
Labs:
Laboratory Results
04/15/25
07:29
WBC 2.1 L*
Hgb 12.5 L
Hct 36.0 L
Plt Count 75 L
PT 20.5 H
INR 1.74
Vital Signs:
Vital Signs
Temp Pulse Resp BP Pulse Ox
97.8 F 62 20 135/78 95
01/29/25 07:00 01/29/25 07:00 01/29/25 07:00 01/29/25 07:00 01/29/25 07:00
I&O
01/28/25 01/29/25 01/30/25
06:59 06:59 06:59
Intake Total 720 / 720
Output Total 200 / 200 600 / 600
Balance 520 / 520 -600 / -600
Review of Systems
-
Unable to obtain full review of systems at this time due to: Dementia
History Source: Patient
All other systems: Reviewed and negative
Physical Exam
-
General: No Apparent Distress and Comfortable
Respiratory: Clear to Auscultation
GI: Soft, Nontender and Nondistended
Skin: Warm
Neuro: Awake, Alert, Oriented and Other (RUE weakness, chronic and persistent)
Psych: Apparent Dementia and Other (impaired short memory)
[2025-01-29 11:00] VITALS: BP 115/68
--- NOTE | 2025-01-29 11:48 | CM ---
spd manager reviewed patient's chart and met with patient to re review recommendations from physical therapy, physical therapy are recommending acute v's skilled rehab, however patient is not agreeable to rehab placement. Patient states he wants to
return to [facility] with [facility]. spd manager reached out to patient's friend and neighbor, Megan and she states that patient has caregivers in home Mon-Sun 8:30am to 12:30 and patient's son, Rodrick works from home, patient's grandson who is 13 is there
part-time. Patient's son Rodrick's fiancee also to move into home soon.
Plan; Home with [facility], patient has declined rehab placement.
--- NOTE | 2025-01-29 12:10 | VNURNOTE ---
Chart reviewed. HX Vascular MCI vs Dementia noted. Patient requested home with VN, has had [facility] in the past. Home Health Liaison spoke with primary contact Megan to discuss [facility] nurse/therapy, visits, schedule and homebound status. She and Patient
are agreeable and understand that visits at home will be 2-3 x per week to assess and teach medical management. [facility] for [facility] care in 1-2 days after discharge from . [facility]
in [facility].
--- NOTE | 2025-01-29 12:35 | W.PN.NEURO.1 ---
Today's Communication / Plan
-
.
Neuro Assessment/Plan
Assessment
69 year old man multiple prior strokes, residual right sided weakness, Afib, antiphospholipid, on Coumadin, presents with episode of right sided flacid lasting several minutes. as he has had the same event 6 times, this event would be a simple
partial seizure. you can't have the same TIA 6 times.
brain MRI showing numerous chronic strokes left frontal, left parietal, left internal capsule, bilateral basal ganglia
Plan
Start Keppra 500 BID
stroke secondary prevention continue Coumadin, Lipitor 20
Subjective/Objective
Subjective Data
Date of Service: January 29, 2025
Neurology follow-up note
Mr. Salazar reports no complaints. He states that his right arm weakness has been unchanged since admission.
Brain MRI wo john showed acute left frontal subcortical infarct, moderate to severe global atrophy as well as multifocal cortical microhemorrhages, chronic right cerebellar infarct as well as stable cerebropontine arachnoid cyst
Encephalomalacia from old infarct involving the inferior right cerebellum. Tiny chronic infarcts both cerebellar hemispheres.
PMH: A-fib, MCI, history of strokes, antiphospholipid syndrome on warfarin, thrombocytopenia, right cerebellopontine angle arachnoid cyst, HTN, DLP, CKD, cervical spinal stenosis, vitamin D deficiency, JOHN
PSH: [place] tooth extraction
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
All: Penicillins
ROS: Constitutional: Negative. Negative for chills, fever and unexpected weight change.
HENT: Negative for ear pain, hearing loss, tinnitus and trouble swallowing.
Eyes: Negative. Negative for photophobia, pain and visual disturbance.
Respiratory: Negative for cough, choking and shortness of breath.
Cardiovascular: Negative for chest pain, palpitations and leg swelling.
Gastrointestinal: Negative for abdominal pain and vomiting.
Endocrine: Negative. Negative for cold intolerance.
Genitourinary: Negative for dysuria, flank pain and urgency.
Musculoskeletal: Negative for back pain, gait problem, neck pain and neck stiffness.
Skin: Negative for rash.
Allergic/Immunologic: Negative. Negative for immunocompromised state.
Neurological: Negative for dizziness, tremors, seizures, speech difficulty, numbness and headaches.
Psychiatric/Behavioral: Negative for behavioral problems, confusion and hallucinations.
General: Well developed. In no acute distress.
Cardio: Regular rate and rhythm without murmur. Extremities are without cyanosis or edema.
Neuro:
Mental Status: Alert, oriented to name, month, year, person. Impaired attention and comprehension. Unable to cross midline. Nonfluent. No hemineglect
Cranial Nerves: Pupils are equally round and reactive to light. EOMs full. Visual nina full to confrontation. No ptosis. No nystagmus. V1-V3 intact to light touch and pinprick bilaterally, symmetric. Face symmetric. Impaired hearing AU.
The palate elevated well. SCMs and traps 5/5. Tongue midline. No dysarthria.
Motor: Right pronator drift. Right distal more than proximal arm weakness. Mild right leg weak (Right elbow�antigravity)
Reflexes: Negative clonus bilaterally.
Sensory: Limited exam due to poor attention
Coordination: Dysmetria on the left
Gait: deferred
Assessment and Plan:
I. Acute left frontal subcortical infarct. Likely etiology embolic in settings of subtherapeutic INR
II. Probable cerebral amyloid angiopathy
III. Multifactorial encephalopathy (vascular, neurodegenerative)
IV. PA A-Fib
V. Thrombocytopenia
-Continue Telemetry monitoring
-Fall precautions
-Medication administration supervision
-Continue systemic anticoagulation. Risk of recurrent stroke overweight risk of ICH.
- Outpatient neurology follow-up
I personally reviewed all radiology and labs along with past medical records pertinent to current medical problems. Total time spent in patient care is 35 minutes.
Thank you for allowing us to participate in the care of this patient. Please do not hesitate to contact us with any questions or concerns.
Objective Data
Vital Signs
Temp Pulse Resp BP Pulse Ox
36.3 C 62 18 115/68 96
01/29/25 11:00 01/29/25 11:00 01/29/25 11:00 01/29/25 11:00 01/29/25 11:00
Lab Results
01/29/25 07:29
01/28/25 06:15
PT 20.5 Sec (11.4-14.6) H 01/29/25 07:29
INR 1.74 01/29/25 07:29
Sodium 142 mmol/L (135-145) 01/28/25 06:15
Potassium 4.2 mmol/L (3.5-5.1) 01/28/25 06:15
BUN 23 mg/dl (9-20) H 01/28/25 06:15
Glucose 93 mg/dl (70-99) 01/28/25 06:15
Calcium 9.2 mg/dl (8.4-10.2) 01/28/25 06:15
LDL Cholesterol, Calc 70 mg/dl 01/27/25 07:16
Patient Allergies
Penicillins Allergy (Verified 01/26/25 10:01)
Rash
Vital Signs and Labs
-
Vital Signs and Labs:
Vital Signs
Temp Pulse Resp BP Pulse Ox
36.3 C 62 18 115/68 96
01/29/25 11:00 01/29/25 11:00 01/29/25 11:00 01/29/25 11:00 01/29/25 11:00
Lab Results
01/29/25 07:29
01/28/25 06:15
PT 20.5 Sec (11.4-14.6) H 01/29/25 07:29
INR 1.74 01/29/25 07:29
Sodium 142 mmol/L (135-145) 01/28/25 06:15
Potassium 4.2 mmol/L (3.5-5.1) 01/28/25 06:15
BUN 23 mg/dl (9-20) H 01/28/25 06:15
Glucose 93 mg/dl (70-99) 01/28/25 06:15
Calcium 9.2 mg/dl (8.4-10.2) 01/28/25 06:15
LDL Cholesterol, Calc 70 mg/dl 01/27/25 07:16
Medications
-
Medications:
Generic Name Dose Route Start Last Admin
Trade Name Freq PRN Reason Stop Dose Admin
Acetaminophen 650 mg 01/26/25 13:43
Acetaminophen 650 Mg Rectal Suppository RECTAL 02/23/25 13:42
Q4HPRN PRN
JOHNSTON, mild pain, or temp >100.4F
Acetaminophen 650 mg 01/26/25 13:43 01/28/25 22:47
Acetaminophen 325 Mg Tablet PO 02/23/25 13:42 650 mg
Q4HPRN PRN Administration
JOHNSTON, mild pain, or temp >100.4F
Amlodipine Besylate 5 mg 01/27/25 08:00 01/29/25 08:53
Amlodipine 5 Mg Tablet PO 02/24/25 07:59 5 mg
DAILY ELIDIA Administration
Atorvastatin Calcium 20 mg 01/27/25 08:00 01/29/25 08:53
Atorvastatin (Lipitor) 20 Mg Tablet PO 02/24/25 07:59 20 mg
DAILY ELIDIA Administration
Cholecalciferol 50 mcg 01/27/25 08:00 01/29/25 08:53
Cholecalciferol (Vitamin D3) 50 Mcg Tablet (2,000 Units) PO 02/24/25 07:59 50 mcg
DAILY ELIDIA Administration
Docusate Sodium 100 mg 01/27/25 08:00 01/29/25 08:53
Docusate Sodium 100 Mg Capsule PO 02/24/25 07:59 100 mg
DAILY ELIDIA Administration
Donepezil HCl 10 mg 01/27/25 08:00 01/29/25 08:53
Donepezil Hcl 10 Mg Tablet PO 02/24/25 07:59 10 mg
DAILY ELIDIA Administration
Enoxaparin Sodium 70 mg 01/27/25 10:35 01/29/25 08:55
Enoxaparin Sodium 80 Mg/0.8 Ml Syringe SC 02/24/25 10:34 70 mg
Q12 ELIDIA Administration
Escitalopram Oxalate 20 mg 01/27/25 08:00 01/29/25 08:53
Escitalopram 20 Mg Tablet PO 02/24/25 07:59 20 mg
DAILY ELIDIA Administration
Levetiracetam 500 mg 01/26/25 20:00 01/29/25 08:53
Levetiracetam 500 Mg Regular Release Tablet PO 02/23/25 19:59 500 mg
BID ELIDIA Administration
Sodium Chloride 0 flush 01/29/25 13:00
Sodium Chloride 0.9% (Flush) Syringe IV 02/26/25 12:59
PER PROTOCOL ELIDIA
Warfarin Sodium 7.5 mg 01/29/25 18:00
Warfarin 7.5 Mg Tablet PO 02/03/25 17:59
QPM ELIDIA
Home Medications
-
Home Medications
amlodipine 5 mg tablet 5 mg PO DAILY Blood Pressure 01/26/25
atorvastatin 20 mg tablet 20 mg PO DAILY High Cholesterol 01/26/25
cholecalciferol (vitamin D3) 50 mcg (2,000 unit) tablet (Vitamin D3) 50 mcg PO DAILY Supplement 01/26/25
docusate sodium 50 mg capsule 50 mg PO DAILY STOOL SOFTENER 01/26/25
donepezil 10 mg tablet 10 mg PO DAILY Mental Health/Anxiety 01/26/25
escitalopram oxalate 20 mg tablet 20 mg PO DAILY Mental Health/Anxiety 01/26/25
therapeutic multivitamin 1 tab PO DAILY Supplement 01/26/25
warfarin 5 mg tablet 5 mg PO DAILY Blood Clot Prevention/Tx 01/26/25
[2025-01-29] MEDS: COUMADIN 7.5 MG PO (12:56)
[2025-01-29 14:45] VITALS: BP 163/86
[2025-01-29 14:58] VITALS: BP 150/81; PULSE 67; O2SAT 98
[2025-01-29 23:46] VITALS: BP 150/81
[2025-01-30 07:50] VITALS: BP 147/75
[2025-01-30 08:21] LABS: INR 1.46; PT 18.2 Sec (11.4-14.6)
[2025-01-30 09:02] LABS: Hematocrit 36.7 % (39.0-52.0); Hemoglobin 12.8 g/dL (13.0-18.0); Mean Corp Hgb Conc. 34.9 g/dL (33.0-37.0); Mean Corpuscular Hgb 30.3 pg (27.0-31.0); Mean Platelet Volume 11.2 fL (7.4-10.4); Platelet Count 70 10^3/uL (130-400); Red Blood Cell Count 4.22 10^6/uL (4.70-6.10); White Blood Cell Count 2.5 10^3/uL (4.8-10.8)
[2025-01-30] MEDS: KEPPRA 500 MG PO (09:55)
[2025-01-30] MEDS: COLACE 100 MG PO (09:56)
[2025-01-30] MEDS: VITAMIN D3 (cholecalciferol) 50 MCG PO (09:56)
[2025-01-30] MEDS: NORVASC 5 MG PO (09:56)
[2025-01-30] MEDS: LEXAPRO 20 MG PO (09:56)
[2025-01-30] MEDS: LIPITOR 20 MG PO (09:56)
[2025-01-30] MEDS: ARICEPT 10 MG PO (09:56)
[2025-01-30] MEDS: LOVENOX 70 MG SC (09:57)
--- NOTE | 2025-01-30 10:17 | CM ---
Addendum entered by Flaquita Ontiveros 01/30/25 12:54:
Patient will need Lovenox at discharge, cost of Lovenox is $55.73, and patient's pharmacy has Lovenox for discharge.
Original Note:
Patient refuses acute rehab and skilled rehab, caser up asked his friend and neighbor, Megan to come and talk with patient however patient adamantly refuses placement wants to return to home and is agreeable to [facility], referral sent to [facility].
Plan; Home with [facility].
--- NOTE | 2025-01-30 11:13 | W.PN.HOSP.TC ---
Today's Communication/Plan
-
dc
Assessment / Plan
Assessment / Plan
69yo M with PMHx of ITP, CVA with residual RUE and RLE weakness, APLS on Coumadin, progressive vascular dementia, HTN, HLD brought to the hospital with recurrent confusion and RUE weakness similar to prior. He hassame issues on 6 occasions over past
years. As per medical POA - patient has worsening intermittent weakness in RUE for a year and was seeing neurologist in [facility] for that. Stroke was identified as a reason for neurologic deficit. His INR was also subtherapeutic couple of
weeks ago and he was given one additional dose of Warfarin for that.
As per POIA - patient ate a lot more eggs recently then usual, which could cause subtherapeutic Coumadin activity. Reinforced diet for Coumadin. Bridging with Lovenox at home - POA agreeable. Minor acute CVA on MRI 2/2 subtherapeutic INR in
hypercoagulable state. Medically stable for d/c home with recommendations to repeat INR in 2 days and cont to follow for further bridging and Coumadin dose with established doctor. POA verbalized understanding of the instructions and in spite of
recommendations for rehab - they sure that patient can have appropriate care at home and would prefer him to be d/c to home as he requests that too. this was discussed with POA on the day of d/c
A/P:
#RUE weakness, fluctuating with PMHX of CVA
#Seizure d/o
Neurologist evaluated: low chance to have repeated strokes with similar symptoms, concern for seizure activity, MRI brain ordered on 01/28/25
Keppra
Seizure precautions
PT/OT - acute rehab
cont home meds
MRI brain:L Minor acute cortical and subcortical left frontal infarcts. No large vascular territory, most likely 2/2 subtherapeutic INR.
#Advanced dementia, vascular
#Chronic thrombocytopenia
#Leukopenia, chronic
patient on the baseline has poor short term memory
Outpatient Neurologist
Concern for amyloid angiopathy - recommended to follow up with established delivery analyst for MGUS w/u
Medical POA follow with delivery analyst for SPEP/UPEP
#Subtherapeutic INR with APLS
family and friend denied non-compliance
Lovenox bridging warfarin higher dose - on hold awaiting for MRI brain
#HLD
#essential HTN
#CKD stage 3a
cont home meds
DVT ppx lovenox
Full code
I have spent at least 35min reviewing hcart, test results, communication with consultants and providing direct patient care
Anticipated Discharge: Today
Subjective/Interval History
-
Date of Service: January 30, 2025
Objective Data
-
Labs:
Laboratory Results
01/30/25
07:53
WBC 2.5 L
Hgb 12.8 L
Hct 36.7 L
Plt Count 70 L
PT 18.2 H
INR 1.46
Vital Signs:
Vital Signs
Temp Pulse Resp BP Pulse Ox
97.7 F 63 16 147/75 98
01/30/25 07:50 01/30/25 09:56 01/30/25 07:50 01/30/25 09:56 01/30/25 07:50
I&O
01/29/25 01/30/25 01/31/25
06:59 06:59 06:59
Intake Total 240 / 240 240 / 240
Output Total 600 / 600 600 / 600 400 / 400
Balance -600 / -600 -360 / -360 -160 / -160
--- NOTE | 2025-01-30 11:25 | W.DCSUMMARY ---
Discharge Summary
Discharge Data
Date of Admission: 01/28/25
Date of Discharge: 01/30/25
-
Pending Results: No
Hospital Course
69yo M with PMHx of ITP, CVA with residual RUE and RLE weakness, APLS on Coumadin, progressive vascular dementia, HTN, HLD brought to the hospital with recurrent confusion and RUE weakness similar to prior. He hassame issues on 6 occasions over past
years. As per medical POA - patient has worsening intermittent weakness in RUE for a year and was seeing neurologist in [facility] for that. Stroke was identified as a reason for neurologic deficit. His INR was also subtherapeutic couple of
weeks ago and he was given one additional dose of Warfarin for that.
As per POIA - patient ate a lot more eggs recently then usual, which could cause subtherapeutic Coumadin activity. Reinforced diet for Coumadin. Bridging with Lovenox at home - POA agreeable. Minor acute CVA on MRI 2/2 subtherapeutic INR in
hypercoagulable state. Medically stable for d/c home with recommendations to repeat INR in 2 days and cont to follow for further bridging and Coumadin dose with established doctor. POA verbalized understanding of the instructions and in spite of
recommendations for rehab - they sure that patient can have appropriate care at home and would prefer him to be d/c to home as he requests that too. this was discussed with POA on the day of d/c. They will provide Lovenox bridging upon d/c
I have spent at least 35min reviewing hcart, test results, communication with consultants and providing direct patient care
Patient was managed for:
#RUE weakness, fluctuating with PMHX of CVA
#Seizure d/o
#Advanced dementia, vascular
#Chronic thrombocytopenia
#Leukopenia, chronic
#Subtherapeutic INR with APLS
#HLD
#essential HTN
#CKD stage 3a
Discharge Plan
-
Patient Disposition: Home with Home Care
Discharge Diagnosis/Procedures: Stroke
Blood Work: INR on 02/01/25 and 02/04/25
Others Tests: SPEP/UPEP with cost recovery technician
Referrals:
Lynsey Calzada NP [Family Provider] -
Prescriptions:
New
levetiracetam 500 mg Tablet
500 mg PO BID Qty: 60 0RF
warfarin [Jantoven] 7.5 mg Tablet
7.5 mg PO QPM Qty: 5 0RF
enoxaparin 80 mg/0.8 mL Syringe
70 mg SC Q12 Qty: 8 1RF
Continued
atorvastatin 20 mg Tablet
20 mg PO DAILY
donepezil 10 mg Tablet
10 mg PO DAILY
docusate sodium 50 mg Capsule
50 mg PO DAILY
therapeutic multivitamin Tablet
1 tab PO DAILY
amlodipine 5 mg Tablet
5 mg PO DAILY
escitalopram oxalate 20 mg Tablet
20 mg PO DAILY
cholecalciferol (vitamin D3) [Vitamin D3] 50 mcg (2,000 unit) Tablet
50 mcg PO DAILY
Discontinued
warfarin 5 mg Tablet
5 mg PO DAILY
Discharge Orders:
Discharge Patient (As Directed); Ordered 01/30/25
Ordered By: Umer Lopez
Discharge Date and Time
Print Language: SWAZI
[2025-01-30 15:47] VITALS: BP 137/78
--- NOTE | 2025-01-31 11:11 | PN.CDI ---
Addendum entered and electronically signed by Umer Lopez MD 01/31/25 12:31:
clinically not pancytopenia, documentation complete
Original Note:
CDI
- -
CDI:
Physician Documentation Request
Admit Date: 01/28/25 10:51
Dear Doctor John,
Patient presented with stroke.
Noted to have chronic thrombocytopenia and chronic leukopenia, per progress notes.
Recent labs:
Laboratory Tests
01/27/25 01/28/25 01/29/25
07:16 06:15 07:29
WBC 1.7 L* 2.2 L* 2.1 L*
RBC 4.03 L 4.27 L 4.12 L
Plt Count 62 L 68 L 75 L
01/30/25
07:53
WBC 2.5 L
RBC 4.22 L
Plt Count 70 L
Could you clarify the diagnosis that supports the above lab abnormalities and additional evaluation/monitoring:
Pancytopenia
Chronic thrombocytopenia and chronic leukopenia only
Other
Use of terms such as suspected, likely, concern for, or probable (associated with a specific diagnosis that is being evaluated, monitored, or treated as if it exists) are acceptable and can be coded in the inpatient setting, when documented at the
time of discharge.
Thank you,
Yesenia Yin RN, BSN
CDI Specialist
tiger text
Please use your independent medical judgment in providing your response.
== END 2025-01-30 17:14 | disposition home health service (06) | DRG 65 ==
LOC: 4 WEST ACU 10:51
PROVIDERS: Family Medicine; Physician Assistant; Registered Nurse; ADMITTING PHYSICIAN Internal Medicine; ATTENDING PHYSICIAN Internal Medicine; CONSULT PHYSICIAN Psychiatry & Neurology Clinical Neurophysiology; EMERGENCY PHYSICIAN Student in an Organized Health Care Education/Training Program; FAMILY PHYSICIAN Nurse Practitioner Adult Health; OTHER PHYSICIAN Psychiatry & Neurology Neurology
DX: I63.9 Cerebral infarction, unspecified (principal); D68.61 Antiphospholipid syndrome; N17.9 Acute kidney failure, unspecified; F01.53 Vascular dementia, unspecified severity, with mood disturbance; F01.54 Vascular dementia, unspecified severity, with anxiety; D69.3 Immune thrombocytopenic purpura; G81.91 Hemiplegia, unspecified affecting right dominant side; G40.909 Epilepsy, unspecified, not intractable, without status epilepticus; D72.819 Decreased white blood cell count, unspecified; N18.31 Chronic kidney disease, stage 3a; I12.9 Hypertensive chronic kidney disease with stage 1 through stage 4 chronic kidney disease, or unspecified chronic kidney disease; I48.91 Unspecified atrial fibrillation; G31.9 Degenerative disease of nervous system, unspecified; M48.02 Spinal stenosis, cervical region; E55.9 Vitamin D deficiency, unspecified; G93.0 Cerebral cysts; F41.1 Generalized anxiety disorder; E78.5 Hyperlipidemia, unspecified; D69.6 Thrombocytopenia, unspecified; F32.A Depression, unspecified; R26.9 Unspecified abnormalities of gait and mobility; Z79.01 Long term (current) use of anticoagulants; Z88.0 Allergy status to penicillin; Z79.82 Long term (current) use of aspirin
CPT/HCPCS: 70450; 70551; 80048; 80053; 80061; 81003; 81015; 82962; 83036; 83735; 84484; 85025; 85027; 85610; 87086; 92526; 92610; 93005; 96360; 97116; 97163; 97167; 97530; 97535; 99285

== ENCOUNTER → 2025-03-20 09:01 | Outpatient (REF) | payer OTHER, SELFPAY ==
--- NOTE | 2025-03-22 13:16 | EEG.RPT ---
Electroencephalogram Report
Recording
Date of EE03/20/25
Type of EEG: Ambulatory
Length of EEG recordin hours
Done with Video Recording: No
Patient Status: Outpatient
Recording Conditions: Awake, Drowsy and Asleep
Hyperventilation Performed: No
Photic Stimulation Performed: Yes
Report
24 HOUR AMBULATORY EEG SUMMARY
24 HOUR AMBULATORY EEG CONCLUSION(S):
Unremarkable EEG for age
CLINICAL CORRELATION:
A normal EEG may not rule out a diagnosis of epilepsy.
The patient�s logs did not indicate clinical symptoms.
Consideration for multiple day monitoring may be given.
Clinical correlation is advised.
METHODS:
A 21 channel digitized electroencephalogram (EEG) was initiated in the Clinical Neurophysiology Laboratory. The patient wore the device outside of the laboratory and returned after 24 hours for electrode and recorder removal. The 10/20
international system of electrode placement was used with bipolar electrode montage recorded. ECG was monitored. The [employer]iel[employer] quantitative EEG analysis system was utilized.
IMPRESSION(S):
Quality
Good
Background
Maximal wakefulness: alpha
There was a normal anterior-posterior voltage gradient. With eye opening the background activity changed. No significant asymmetries of background activity noted.
Sleep
Drowsiness was suggested by slowing of the background rhythms
Stage I sleep was recorded
Stage 2 sleep was recorded
ECG
Unremarkable
== END ==
LOC: EEG 09:01
PROVIDERS: ATTENDING PHYSICIAN Nurse Practitioner Adult Health; FAMILY PHYSICIAN Nurse Practitioner Adult Health
DX: I63.9 Cerebral infarction, unspecified (principal); R56.9 Unspecified convulsions
CPT/HCPCS: 95708

== ENCOUNTER 2025-07-20 11:33 | Inpatient (IN) | payer OTHER, SELFPAY ==
[2025-07-18] VITALS (9 sets, daily range): BP systolic 127–151; BP diastolic 60–84; BMI 22.3; BMI 21.1
[2025-07-18 11:43] LABS: Glucose - Point of Care 170 mg/dl (70-99)
[2025-07-18 12:14] LABS: Hematocrit 40.1 % (39.0-52.0); Hemoglobin 13.4 g/dL (13.0-18.0); Mean Corp Hgb Conc. 33.4 g/dL (33.0-37.0); Mean Corpuscular Volume 88.1 fL (80.0-94.0); Nucleated Red Blood Cells % 0 % (-); Platelet Count 97 10^3/uL (130-400); Red Cell Dist. Width 12.5 % (11.5-14.5)
[2025-07-18 12:19] LABS: Troponin I < 0.012 ng/ml
[2025-07-18 12:20] LABS: INR 1.14; PT 15.1 Sec (11.4-14.6)
[2025-07-18 12:21] LABS: APTT 52.3 Sec (23.4-35.0)
--- NOTE | 2025-07-18 12:26 | ED.GENMED ---
History of Present Illness
General
Chief Complaint: Change Level of Consciousness
Source: patient
Time Seen by Provider: 07/18/25 12:18
History of Present Illness
History of Present Illness:
70-year-old male presents emergency room after having a syncopal or near syncopal event at home. He was in the shower with an aide when he began to feel lightheaded and that he might pass out. He evidently slumped to the ground because his legs
gave out. Derrick Operator was able to prevent him from falling directly to the ground. He did not strike his head. Medics witnessed a similar event when they got him up to get him into the ambulance. Currently patient has no complaints. He denies any
abdominal pain or chest pain. He has a history of his stroke which left him with right-sided weakness.
Phy Exam
Physical Exam
Physical Exam:
General: Awake, Alert, Oriented X3. No acute distress.
Vitals: unremarkable
Head: Atraumatic
Eyes: Pupils equal, EOMI
Throat: Airway intact, no exudates
Neck: Trachea midline
Lungs: Clear and equal b/l
Heart: Regular rate, no murmurs
Abd: Soft, Nontender, No pulsatile mass
Neuro: Residual right-sided weakness from previous stroke
Skin: Warm, dry, no rash
Extremities: pulses equal b/l, no edema
Course
Orders/Labs/Results
Orders:
Orders
07/18/25 Lunch
Regular
At Your Request: Limited Participation
07/18/25 11:43
Electrocardiogram (*1) Urgent
Reason for Study: Syncope
EKG- Treatment ONCE
07/18/25 11:46
Complete Blood Count/With Diff Urgent
Comprehensive Metabolic Panel Urgent
PT/INR [Prothrombin Time] Urgent
Is patient on Coumadin/Warfarin?: No
Comment: [email or web address]
PTT Urgent
Troponin I Urgent
07/18/25 12:23
0.9% Sodium Chloride 500 ml [Nss] 500 ml IV BOLUS
07/18/25 12:25
Cardiac Monitoring- Treatment ONCE
07/18/25 14:33
CT Head W/o Iv Contrast Urgent
Comment:
Reason For Exam: altered mental status, fall
0.9% Sodium Chloride 500 ml [Nss] 500 ml IV BOLUS
07/18/25 17:19
Admit/Transfer Patient As Directed
Co-Sign Provider:
Level of Care: Observation services
Assign to:: Telemetry
Physician / Group: haydee hubbard
Diagnosis: Syncope
Reason for Telemetry: Syncope
Date to Stop Telemetry: 07/20/25
Time to Stop Telemetry: 11:00
07/18/25 17:20
PRN Pain Medication Management As Directed
May give lesser potent ordered pain med per pt: Yes
preference::
Protocol:: Medication orders for pain may be administered in a
manner that supports deferring to patient preference
when the pt is:
- Requesting an ordered lesser potent pain medication.
Least to most potent pain medications are defined
as: acetaminophen < NSAID < tramadol < opioids
(morphine, oxycodone, hydromorphone).
- Requesting a lesser dose of the same medication IF
ORDERED.
- Requesting a less intrusive route of administration
if both routes are prescribed by the provider (PO <
IV).
07/18/25 17:27
Code Status As Directed
Resuscitation Status: Full Code
07/18/25 20:00
Enoxaparin Sodium [Lovenox] 70 mg SC Q12H
07/18/25 20:03
Acetaminophen [Tylenol] 650 mg PO Q4HPRN PRN
Bisacodyl [Dulcolax] 10 mg RECTAL [id number] PRN
Docusate W/Senna [Senokot-S] 1 tablet PO BIDPRN PRN
Polyethylene Glycol Powder [Miralax] 17 grams PO DAILYPRN PRN
07/18/25 20:03
NEUROLOGY CONSULT Routine
Consulting Provider: Hua Hopkins
Was physician already notified: Yes
Reason for consult: Syncope
Activity As Directed
Activity Level: With Assistance
Vital Signs As Directed
Frequency: Per unit guidelines
07/18/25 21:01
Urinalysis Reflex To Culture Routine
Date Specimen was Collected: 07/18/25
Time Specimen was Collected: 20:56
07/18/25 22:00
Atorvastatin [Lipitor] 40 mg PO QPM
Warfarin [Coumadin] 10 mg PO QPM
07/19/25 07:47
Basic Metabolic Panel IN AM
Cardiovascular Evaluation IN AM
Complete Blood Count/No Diff IN AM
Hemoglobin A1c [Glycohemoglobin (HgbA1c)] IN AM
Magnesium IN AM
Prothrombin Time IN AM
07/19/25 08:00
Donepezil HCl [Aricept] 10 mg PO DAILY
Escitalopram Oxalate [Lexapro] 20 mg PO DAILY
Levetiracetam [Keppra] 500 mg PO DAILY
07/19/25 17:45
MR Brain Without Contrast Routine
Reason For Exam: Syncope
Recent pill cam endoscopy?: No
07/20/25 06:00
Prothrombin Time IN AM
07/20/25 11:00
DC Protocol for Telemetry ONCE
07/21/25 06:00
Prothrombin Time IN AM
Abnormal Lab Results
07/18/25 07/18/25
11:42 11:46
RBC 4.55 L 10^6/uL
(4.70-6.10)
Plt Count 97 L 10^3/uL
(130-400)
MPV 11.1 H fL
(7.4-10.4)
Absolute Lymphs (auto) 0.7 L 10^3/uL
(1.2-3.4)
Immature Gran % 0.8 H %
(0-0.5)
Neutrophils % 75.4 H %
(42.2-75.2)
Lymphocytes % 14.1 L %
(20.5-51.1)
PT 15.1 H Sec
(11.4-14.6)
APTT 52.3 H Sec
(23.4-35.0)
BUN 22 H mg/dl
(9-20)
Creatinine 1.6 H mg/dL
(0.7-1.3)
Glucose 172 H mg/dl
(70-99)
POC Glucose 170 H mg/dl
(70-99)
07/18/25 11:46
07/18/25 11:46
Vital Signs
Initial and Last Documented VS:
Initial Vital Signs
Temp Pulse Resp BP Pulse Ox
97.6 F 56 16 130/67 97
07/18/25 11:39 07/18/25 11:39 07/18/25 11:39 07/18/25 11:39 07/18/25 11:39
Last Documented Vital Signs
Temp Pulse Resp BP Pulse Ox
98.9 F 64 18 158/78 96
07/19/25 23:10 07/19/25 23:10 07/19/25 23:10 07/19/25 23:10 07/19/25 23:10
MDM/Problems Addressed
Differential Diagnosis Includes:
Vasovagal syncope, dysrhythmia, CVA
MDM/Problems Addressed:
Patient presents after having what sounds like a syncopal episode at home. Here in the emergency room he is awake and alert but is quite weak in general fashion. He is unable to support his own weight which is not his baseline. CT of the head
shows no acute abnormality, labs are consistent with previous measurements. Unclear why the patient now cannot ambulate perhaps he had a CVA which is not detectable on current CT. Patient will require hospitalization for further workup.
Chronic conditions affecting care: HTN and Other (Previous CVA)
*Radiology
Radiology exam reviewed: radiology read reviewed
*Pulse Oximetry
SaO2: 97
Oxygen Mode of Delivery: Room air
Patient hypoxic: no
*EKG
Interpreted by ED Provider?: Yes
Interpretation: abnormal
Heart Rate: 54
Rate: bradycardiac
Rhythm: sinus
Mccormick: normal axis
Interval: normal interval
QRS Pattern: normal QRS
Ischemia: non-specific ST changes
*Hog Sticker Interpretation
Rate: bradycardiac
Interpretation: normal
Rhythm: sinus
*Critical Care Note
Total Time (30-74mins, 75-104mins- exclusive of procedures): Not Applicable
ED Attending Note
-
Portions of this chart may have been created with voice recognition software.� Occasional wrong word or��sound alike� substitutions may have occurred due to the inherent limitations of voice recognition software.
Discharge Plan
Departure
Patient Disposition: Admit
Date of Disposition: 07/18/25
Time of Disposition: 16:55
Admit to: Med/Surg
Presentation/result/management discussed w/ accepting MD/DO: Hospitalist
Condition: Fair
Discharge Problem:
Acute confusion, Ambulatory dysfunction
Interventions
Interventions:
*Risk Screen - Suicide Last Done: 07/18/25 20:15
*General Assessment Last Done: 07/18/25 11:43
*Neglect/Abuse Screening Last Done: 07/18/25 11:43
*ED- Fall Risk Assessment Last Done: 07/18/25 11:42
*ED COVID-19 Vaccine History Last Done: 07/18/25 20:15
*ED Influenza Vaccine History Last Done: 07/18/25 11:42
*Nursing Disposition Last Done: 07/18/25 18:38
ED- Cardiac Assessment Last Done: 07/18/25 11:43
ED- Neurological Assessment Last Done: 07/18/25 11:43
ED-Psychological Assessment Last Done: 07/18/25 11:43
ED- Pulmonary Assessment Last Done: 07/18/25 11:43
Discharge Date and Time
Discharge Date/Time: 07/18/25 19:56
[2025-07-18] MEDS: NSS 500 IV ×2 (12:32→14:35)
[2025-07-18 12:37] LABS: ALT (SGPT) 20 U/L (0-50); AST (SGOT) 25 U/L (17-59); Albumin 4.3 g/dl (3.5-5.0); Alkaline Phosphatase 76 U/L (38-126); Blood Urea Nitrogen 22 mg/dl (9-20); Calcium 9.0 mg/dl (8.4-10.2); Carbon Dioxide 24 mmol/L (22-30); Chloride 105 mmol/L (98-107); Estimated Creatinine Clearance 44 ml/min; Glucose 172 mg/dl (70-99); Potassium 4.1 mmol/L (3.5-5.1); Sodium 138 mmol/L (135-145); Total Protein 7.4 g/dl (6.3-8.2); eGFR 46.06
--- NOTE | 2025-07-18 17:10 | HPS.HSE ---
Family Physician
-
Family Physician: NOT KNOW UNKNOWN - PT DOES
Chief Complaint
-
Syncope
History of Present Illness
Patient is 70 years old with a history of CVA/TIAs with baseline R sided weakness and antiphospholipid syndrome on Coumadin , vascular dementia, hyperlipidemia, hypertension, who came to the ER with syncope.
Patient was taking shower at home and he started to feel lightheaded and passed out, solderer assembler was able to prevent him from falling directly to the ground or hitting his head.
Patient also has similar event to medics when he was getting to ambulance.
CT scan done in the ER came back shows no acute finding.
Patient seen and examined at bedside, denies any chest pain or shortness of breath, no abdominal pain, no nausea, no vomiting, no diarrhea or constipation.
Medical History
Past Medical History
Past Medical History: Reports Other
Additional Past Medical History:
Hypertension
CVA
CKD stage III
History of mononucleosis
Antiphospholipid antibody syndrome
Anticardiolipin antibody syndrome
A-fib
Hyperlipidemia
Thrombocytopenia
Retinal artery occlusion
Past Surgical History: Reports Other
Additional Past Surgical History:
wisdom Tooth extraction
Social History
Tobacco: Non-smoker
Alcohol: None
Drug: None
Personal: Single
Living: With Family
Family History
Family History: Not pertinent
Allergies / Home Medications
Allergies reflects when Allergies were last updated in [facility].
Home Medications with original date entered in [facility]
Allergy/Medication List:
Allergies
Allergy/AdvReac Type Severity Reaction Status Date / Time
Penicillins Allergy Rash Verified 01/26/25 10:01
Home Medications
amlodipine 5 mg tablet 5 mg PO DAILY Blood Pressure 01/26/25
atorvastatin 20 mg tablet 20 mg PO DAILY High Cholesterol 01/26/25
cholecalciferol (vitamin D3) 50 mcg (2,000 unit) tablet (Vitamin D3) 50 mcg PO DAILY Supplement 01/26/25
docusate sodium 50 mg capsule 50 mg PO DAILY STOOL SOFTENER 01/26/25
donepezil 10 mg tablet 10 mg PO DAILY Mental Health/Anxiety 01/26/25
escitalopram oxalate 20 mg tablet 20 mg PO DAILY Mental Health/Anxiety 01/26/25
therapeutic multivitamin 1 tab PO DAILY Supplement 01/26/25
levetiracetam 500 mg tablet 500 mg PO BID #60 tabs 01/29/25
warfarin 7.5 mg tablet (Jantoven) 7.5 mg PO QPM #5 tabs 01/29/25
Review of Systems
-
A 12 point ROS was completed and negative except as noted: Yes
Constitutional: Reports Fatigue; Denies Fever, Weight Gain, Weight Loss or Sleep Disturbance
EENT: Denies Tearing, Sore Throat, Mouth Pain, Mouth Swelling or Runny Nose
Respiratory: Denies Cough, Hemoptysis or Trouble Breathing
Cardiac: Denies Chest Pain, Diaphoresis, Palpitations or Syncope
Abdomen/GI: Denies Abdominal Pain, Nausea, Vomiting, Diarrhea, Constipated, Bloody Stools or Black Stools
: Denies Dysuria, Frequency, Flank Pain, Incontinence, Difficulty Voiding, Urgency, Bleeding or Dark Urine
Musculoskeletal: Denies Joint Pain, Joint Swelling, Muscle Pain, Muscle Stiffness or Edema
Skin: Denies Itching or Rash
Neurological: Reports Dizzy and Weakness; Denies Headache or Numbness
Endocrine: Denies Polyuria, Polydipsia or Temp Intolerance
Hematologic/Lymphatic: Denies Bleeding, Swollen Glands or Bruising
Psych: Reports Calm; Denies Depression, Anxiety or Panic Disorder
Physical Exam
Vital Signs
Vital Signs
Temp Pulse Resp BP Pulse Ox
97.6 F 62 16 146/73 99
07/18/25 11:39 07/18/25 15:35 07/18/25 16:13 07/18/25 16:00 07/18/25 15:00
Physical Exam
General: Well Developed, Well Nourished, No Apparent Distress, Comfortable and Good Appetite; No Pain, Chills or Sweats
HEENT: NormoCephalic, Moist mucous membranes, Atraumatic, Good Dentition, PERRLA, Nose Appears Normal and Ears Appear Normal
Respiratory: Clear
Cardiac: S1/S2 and Regular Rhythm
Breast: Deferred by me
GI: Soft, Non Tender, Non Distended and Normal Bowel Sounds
Genito-urinary: Deferred by me
Musculoskeletal: No Clubbing, No Cyanosis and No Edema
Skin: Warm; No Rash, Jaundice, Ulcers, Lesions or Decubitus Ulcers
Neuro: Awake, Alert, Oriented, AO x 3, No Motor Deficits, Nonfocal/grossly intact and Cranial Nerves Intact
Hematologic/Lymphatic: No Lymphadenopathy
Psych: Calm
Laboratory Results
-
07/18/25 11:46
07/18/25 11:46
Laboratory Results
PT 15.1 Sec (11.4-14.6) H 07/18/25 11:46
INR 1.14 07/18/25 11:46
APTT 52.3 Sec (23.4-35.0) H 07/18/25 11:46
Total Bilirubin 0.7 mg/dl (0.2-1.3) 07/18/25 11:46
AST 25 U/L (17-59) 07/18/25 11:46
ALT 20 U/L (0-50) 07/18/25 11:46
Alkaline Phosphatase 76 U/L (38-126) 07/18/25 11:46
Troponin I < 0.012 ng/ml 07/18/25 11:46
Data Reviewed
-
Diagnostic Radiology: Report Reviewed by me
CT Scan: Report Reviewed by me
Medical Tests (Nuc Med, Echo, EKG etc): Report Reviewed by me
Lab Data: Labs Reviewed by me
Old Records: Reviewed
Impression/Plan
-
Impression:
Patient is 70 years old with a history of CVA/TIAs with baseline R sided weakness and antiphospholipid syndrome on Coumadin , vascular dementia, hyperlipidemia, hypertension, who came to the ER with syncope.
Patient was taking shower at home and he started to feel lightheaded and passed out, solderer assembler was able to prevent him from falling directly to the ground or hitting his head.
Patient also has similar event to medics when he was getting to ambulance.
CT scan done in the ER came back shows no acute finding.
Assessment/plan
Syncope
CT head done in the ER shows no acute finding
Patient with history of CVA in the past secondary to antiphospholipid
Currently on Coumadin but INR is subtherapeutic
Admit to telemetry bed.
Frequent neurocheck.
Allow permissive hypertension.
Neurology consult.
MRI brain pending.
Check hemoglobin A1c, fasting lipid panel.
PT/OT consult.
Social service for discharge.
Subtherapeutic INR.
Patient admitted taking his Coumadin as prescribed.
Discussed with son Rodrick in the phone who admitted that the patient taking the 5 mg and check INR every Tuesday.
If INR below to increase dose to 7.5 mg.
Patient did not check his INR this last Tuesday.
Will increase Coumadin for now to 10 mg at night.
Daily INR
History of antiphospholipid syndrome.
Continue Coumadin
May bridge with Lovenox on discharge
History of seizure
Diagnosed last admission.
Experience weakness and deconditioning from Keppra
Supposed to be on Keppra 500 mg twice daily but son said he only takes it once a day.
History�of�hypertension
Hold Norvasc
History of hyperlipidemia
Continue�statin
History of dementia
Continue�donepezil
History of depression.
Continue escitalopram
CKD stage IIIb
Avoid nephrotoxic
�
CODE STATUS:�Full�code
DVT�prophylaxis:�Coumadin
Diet:�Regular�diet
Family�communication: Discussed with praful Mensah in the phone.
Disposition: Admit telemetry observation.
Total�time�spent�on�today�s�encounter�was�75�minutes�which�included�time�spent�in�counseling�the�patient/family�regarding�diagnosis�and�treatment�plan�as�listed�above,�goals�of�care,�and�symptom�management.�Case�was�discussed�with�nursing�staff,�spec
ialists,�and�care�coordinators/case�management.�All�labs�and�imaging�personally�reviewed�by�me.�Remainder�the�time�spent�in�detailed�review�of�previous�records,�lab�data,�imaging,�and�other�medical�provider�documentation.
[2025-07-18 21:12] LABS: Urine Character Clear (Clear)
[2025-07-18 21:21] LABS: Urine Red Blood Cell 0-2 /HPF (0-2); Urine Squamous Cell 0-2 /LPF (Few); Urine White Cell 0-2 /HPF (0-5)
[2025-07-18] MEDS: COUMADIN 10 MG PO (21:41)
[2025-07-18] MEDS: LIPITOR 40 MG PO (21:41)
[2025-07-18] MEDS: LOVENOX 70 MG SC (21:42)
--- NOTE | 2025-07-19 01:49 | PTCARENOTE ---
received pt from ED at 199907/18/25. pt pulled over from stretcher to bed. pt A&O x 2, disoriented to time. forgetful at times. pt offers no current complaints and appears comfortable in bed. bed alarm plugged in and call davis within reach. plan of
care ongoing.
[2025-07-19 03:57] VITALS: BP 147/83
[2025-07-19 08:35] LABS: Hematocrit 40.6 % (39.0-52.0); Hemoglobin 13.9 g/dL (13.0-18.0); Mean Corp Hgb Conc. 34.2 g/dL (33.0-37.0); Mean Corpuscular Volume 86.8 fL (80.0-94.0); Platelet Count 92 10^3/uL (130-400); Red Cell Dist. Width 12.6 % (11.5-14.5)
[2025-07-19 08:41] LABS: INR 1.32; PT 16.6 Sec (11.4-14.6)
[2025-07-19] MEDS: KEPPRA 500 MG PO (08:45)
[2025-07-19] MEDS: ARICEPT 10 MG PO (08:45)
[2025-07-19] MEDS: LEXAPRO 20 MG PO (08:46)
[2025-07-19 08:56] VITALS: BP 132/79
[2025-07-19 09:06] LABS: Blood Urea Nitrogen 21 mg/dl (9-20); Calcium 9.2 mg/dl (8.4-10.2); Carbon Dioxide 27 mmol/L (22-30); Chloride 105 mmol/L (98-107); Estimated Creatinine Clearance 48 ml/min; Glucose 87 mg/dl (70-99); HDL Cholesterol 47 mg/dl; LDL Cholesterol, Calculated 175 mg/dl; Magnesium 2.2 mg/dl (1.6-2.3); Potassium 4.5 mmol/L (3.5-5.1); Sodium 141 mmol/L (135-145); Very Low Density Lipoprotein 30 mg/dl (0-30); eGFR 54.07
--- NOTE | 2025-07-19 09:51 | CON.NEURO4 ---
Consultation - Neurology 4
-
CONSULTING PHYSICIAN: Hua Hopkins MD
REFERRING PHYSICIAN: Hospitalist Dr. Palmer
DICTATED BY: Hua Hopkins MD
DATE/TIME OF REQUEST:
DATE/TIME OF CONSULTATION: 07/19/2025
Reason for Consultation: Syncope and weakness
History of Present Illness:
This is a 70year old male with a past medical history of antiphospholipid syndrome on coumadin and CVA with mild residual right-sided weakness, vascular dementia, hypertension and hyperlipidemia, who presented to the hospital because while taking
a shower, he felt lightheaded and his client services account manager was able to prevent him from falling. According to the patient there was a concern for having a new stroke, however, the patient does not appear to have a new deficit. The patient was on coumadin at
home and his INR was subtherapeutic at 1.14 yesterday. According to the patient's son he was taking his medications including coumadin. MRI brain done on 01/29/25 showed a small acute cortical and subcortical left frontal lobe infarcts. He also has a
history of seizure and is supposed to be on Keppra 500 mg twice daily, but his son said that he was taking it once a day. The patient denies headache, dizziness, chest pain, fever, chills, nausea, vomiting and diarrhea.
The CT head did not show acute intracranial abnormality noted. No acute intracranial hemorrhage.
Past Medical History: Antiphospholipid syndrome on coumadin and CVA with mild residual right-sided weakness, hypertension and hyperlipidemia,
Review of Symptoms: The patient denies headache, dizziness, chest pain, fever, chills, nausea, vomiting and diarrhea.
Neurologic Examination:
The patient is awake, alert and oriented to self, but he does not know his name or the month. The speech is clear. The cranial nerves II-XII are grossly intact. The patient has a drift in the right upper and lower extremities. The strength is
grossly 5/5 in the left upper and lower extremities. Sensation is intact bilaterally. Ther is no limb ataxia seen.
Impression:
Mr. Alex Salazar is a 70 year old male who has presented to the hospital with the history that appears to suggest that he had an episode of syncope. He does not appear to have had a new stroke, however, he was on coumadin for antiphospholipid
syndrome and he had a subtherapeutic INR at 1.14 yesterday.
The plan is to bridge coumadin with Lovenox until the INR is in the therapeutic range.
Will also get orthostatic blood pressure measurements.
Discussed patient care with patient in detail regarding the assessment and plan.
Discussed with Dr. Palmer.
Total Time Spent with Patient (in minutes): 40
Vital Signs and Labs
-
Vital Signs and Labs:
Vital Signs
Temp Pulse Resp BP Pulse Ox
36.9 C 73 18 132/79 97
07/19/25 08:56 07/19/25 08:56 07/19/25 08:56 07/19/25 08:56 07/19/25 08:56
Lab Results
07/19/25 07:47
07/19/25 07:47
PT 16.6 Sec (11.4-14.6) H 07/19/25 07:47
INR 1.32 07/19/25 07:47
APTT 52.3 Sec (23.4-35.0) H 07/18/25 11:46
Sodium 141 mmol/L (135-145) 07/19/25 07:47
Potassium 4.5 mmol/L (3.5-5.1) 07/19/25 07:47
BUN 21 mg/dl (9-20) H 07/19/25 07:47
Glucose 87 mg/dl (70-99) 07/19/25 07:47
Calcium 9.2 mg/dl (8.4-10.2) 07/19/25 07:47
LDL Cholesterol, Calc 175 mg/dl 07/19/25 07:47
Medications
-
Active Medications
Generic Name Dose Route Start Last Admin
Trade Name Freq PRN Reason Stop Dose Admin
Acetaminophen 650 mg 07/18/25 20:03
Acetaminophen 325 Mg Tablet PO 08/15/25 20:02
Q4HPRN PRN
mild pain/[place]/temp> 100.4F
Atorvastatin Calcium 40 mg 07/18/25 22:00 07/18/25 21:41
Atorvastatin (Lipitor) 20 Mg Tablet PO 08/15/25 21:59 40 mg
QPM ELIDIA Administration
Bisacodyl 10 mg 07/18/25 20:03
Bisacodyl 10 Mg Rectal Suppository RECTAL 08/15/25 20:02
[id number] PRN
constipation
Donepezil HCl 10 mg 07/19/25 08:00 07/19/25 08:45
Donepezil Hcl 10 Mg Tablet PO 08/16/25 07:59 10 mg
DAILY ELIDIA Administration
Enoxaparin Sodium 70 mg 07/18/25 20:00 07/19/25 10:16
Enoxaparin Sodium 80 Mg/0.8 Ml Syringe SC 08/15/25 19:59 70 mg
Q12H ELIDIA Administration
Escitalopram Oxalate 20 mg 07/19/25 08:00 07/19/25 08:46
Escitalopram 20 Mg Tablet PO 08/16/25 07:59 20 mg
DAILY ELIDIA Administration
Levetiracetam 500 mg 07/19/25 08:00 07/19/25 08:45
Levetiracetam 500 Mg Regular Release Tablet PO 08/16/25 07:59 500 mg
DAILY ELIDIA Administration
Polyethylene Glycol 17 grams 07/18/25 20:03
Polyethylene Glycol Powder 17 Grams Packet PO 08/15/25 20:02
DAILYPRN PRN
constipation
Senna/Docusate Sodium 1 tablet 07/18/25 20:03
Docusate W/Senna (Yolanda-Colace) Tablet PO 08/15/25 20:02
BIDPRN PRN
constipation
Warfarin Sodium 10 mg 07/18/25 22:00 07/18/25 21:41
Warfarin 10 Mg Tablet PO 07/23/25 21:59 10 mg
QPM ELIDIA Administration
Home Medications
�Medication �Instructions �Recorded
amlodipine 5 mg tablet 10 mg PO DAILY Blood Pressure 01/26/25
atorvastatin 20 mg tablet 20 mg PO DAILY High Cholesterol 01/26/25
cholecalciferol (vitamin D3) 50 50 mcg PO DAILY Supplement 01/26/25
mcg (2,000 unit) tablet (Vitamin
D3)
donepezil 10 mg tablet 10 mg PO DAILY Mental 01/26/25
Health/Anxiety
escitalopram oxalate 20 mg tablet 20 mg PO DAILY Mental 01/26/25
Health/Anxiety
therapeutic multivitamin 1 tab PO DAILY Supplement 01/26/25
levetiracetam 500 mg tablet 500 mg PO BID #60 tabs 01/29/25
warfarin 7.5 mg tablet (Jantoven) 7.5 mg PO QPM #5 tabs 01/29/25
enoxaparin 80 mg/0.8 mL 70 mg (0.7 mL) SC Q12 #8 mL 01/30/25
subcutaneous syringe
[2025-07-19] MEDS: LOVENOX 70 MG SC ×2 (10:16→20:30)
[2025-07-19 10:37] LABS: Glycohemoglobin (HgbA1c) 5.3 % (4.0-5.6)
--- NOTE | 2025-07-19 11:24 | W.PN.NEURO.1 ---
Subjective/Objective
Subjective Data
Date of Service: July 19, 2025
Objective Data
Vital Signs
Temp Pulse Resp BP Pulse Ox
36.9 C 73 18 132/79 97
07/19/25 08:56 07/19/25 08:56 07/19/25 08:56 07/19/25 08:56 07/19/25 08:56
Lab Results
07/19/25 07:47
07/19/25 07:47
PT 16.6 Sec (11.4-14.6) H 07/19/25 07:47
INR 1.32 07/19/25 07:47
APTT 52.3 Sec (23.4-35.0) H 07/18/25 11:46
Sodium 141 mmol/L (135-145) 07/19/25 07:47
Potassium 4.5 mmol/L (3.5-5.1) 07/19/25 07:47
BUN 21 mg/dl (9-20) H 07/19/25 07:47
Glucose 87 mg/dl (70-99) 07/19/25 07:47
Calcium 9.2 mg/dl (8.4-10.2) 07/19/25 07:47
LDL Cholesterol, Calc 175 mg/dl 07/19/25 07:47
Patient Allergies
Penicillins Allergy (Verified 01/26/25 10:01)
Rash
[2025-07-19 11:40] VITALS: BP 139/75; BP 158/81; PULSE 71; PULSE 72
--- NOTE | 2025-07-19 12:42 | CON.NEURO4 ---
Consultation - Neurology 4
-
CONSULTING PHYSICIAN:
REFERRING PHYSICIAN:
DICTATED BY:
DATE/TIME OF REQUEST:
DATE/TIME OF CONSULTATION:
Reason for Consultation:
History of Present Illness:
This is a (age) year old (left/right) handed (male/female) who has presented to the hospital with (chief complaint). Patient's symptoms began (time) ago, when (describe).
- For stroke patients please mention last known well time.
- Describe associated symptoms, if any. Describe any treatment taken and intervention made.
- Describe the current status of symptoms.
- Describe if patient is compliant with current medications - name the medications and follow up with the physician.
- Describe if patient has had any similar symptoms in the past.
- For stroke patients, mention if patient has had a prior stroke and if there are any residual deficits.
- If the history has been obtained from sources other than the patient, mention 'this history has been contributed to by'
and name the source: family/medical record/chcf/caregiver/nursing ect.
Past Medical History:
Surgical History:
Family History:
Social History:
Allergies:
Home Medications:
Review of Symptoms:
Patient denies any fever, headache, chest pain, shortness of breath, GI or symptoms.
�Per the HPI.�All systems are reviewed negative except above.
�- Remove any of these problems that patient may have complained about in the HPI.
�- If patient is unresponsive, intubated or demented, say 'Per the HPI. I am unable to obtain a complete review of systems�because of patient's inability to provide history.'
Vital Signs:
The patient has a blood pressure of ( ) , heart rate ( ) , temperature ( ) , respiratory rate ( ) and a pulse ox of ( ) on
(room air / oxygen by nasal cannula / ventilator).
Physical Exam:
The patient is afebrile, heart sounds S1 and S2 are (regular / irregular), and chest is clear to auscultation bilaterally.
- If not clear, describe.
NIH Stroke Scale (if applicable):
I performed the NIH stroke scale on the patient on (date & time). The patient scored ( ) points on the NIH stroke scale assessment, which were assigned as follows:
Neurologic Examination:
The patient is awake, alert and oriented x 3. (He/She) is able to follow commands and answer questions appropriately. There is no aphasia or dysarthria. On cranial nerve assessment, pupils are 3 mm bilateral, round and reactive to light and
accommodation. Visual nina are full. Extraocular movements are intact. Facial sensations are intact and bilaterally symmetrical, there is no facial asymmetry. Hearing is intact bilaterally to normal conversation volume. Tongue palate and uvula
are midline. Sternocleidomastoid strengths are full bilaterally. Motor strengths are 5/5 bilateral upper and lower extremities on medical research [place] scale. There is no drift or involuntary movement noted. Deep tendon reflexes are 2+ bilateral
upper and lower extremities and Babinski is absent bilaterally. Sensations of pain, touch, temperature and vibration are intact and bilaterally symmetrical. There was no extinction noted on double simultaneous stimulation. Coordination is intact by
finger to nose bilaterally.
Lab Results:
Neuro Imaging:
Impression:
(Mr. / MsTomer) TENZIN FLORES is a 70 year old M who has presented to the hospital with (symptoms/chief complaint).
Differentials for the patient's presentation include:
1.
2.
3.
4.
Patient has the following risk factors for their symptoms:
IV Tenecteplase/IAT candidacy
Recommendations:
1.
2.
3.
Discussed patient care with:
--- NOTE | 2025-07-19 13:39 | W.PN.HOSP.TC ---
Today's Communication/Plan
-
MRI pending.
Daily PT/INR
Assessment / Plan
Assessment / Plan
Impression:
Patient is 70 years old with a history of CVA/TIAs with baseline R sided weakness and antiphospholipid syndrome on Coumadin , vascular dementia, hyperlipidemia, hypertension, who came to the ER with syncope.
Patient was taking shower at home and he started to feel lightheaded and passed out, bobtail driver was able to prevent him from falling directly to the ground or hitting his head.
Patient also has similar event to medics when he was getting to ambulance.
CT scan done in the ER came back shows no acute finding.
Assessment/plan:
Syncope
CT head done in the ER shows no acute finding
Patient with history of CVA in the past secondary to antiphospholipid
Currently on Coumadin but INR is subtherapeutic
Admit to telemetry bed.
Frequent neurocheck.
Allow permissive hypertension.
Neurology consulted.
MRI brain pending.
hemoglobin A1c 5.3 ,
fasting lipid panel shows total LDL 175, total cholesterol 252, will increase atorvastatin to 40 mg on discharge
PT/OT consulted.
Social service for discharge.
Subtherapeutic INR.
Patient admitted taking his Coumadin as prescribed.
Discussed with son Rodrick in the phone who admitted that the patient taking the 5 mg and check INR every Tuesday.
If INR below to increase dose to 7.5 mg.
Patient did not check his INR this last Tuesday.
Increased Coumadin for now to 10 mg at night.
Lovenox bridging 1 mg/kg twice daily
Daily INR
History of antiphospholipid syndrome.
Continue Coumadin/Lovenox bridging
History of seizure
Diagnosed last admission.
Experience weakness and deconditioning from Keppra
Supposed to be on Keppra 500 mg twice daily but son said he only takes it once a day.
History�of�hypertension
Hold Norvasc
History of hyperlipidemia
Continue�statin
History of dementia
Continue�donepezil
History of depression.
Continue escitalopram
CKD stage IIIb
Avoid nephrotoxic
�
CODE STATUS:�Full�code
DVT�prophylaxis:�Coumadin
Diet:�Regular�diet
Family�communication: Discussed with son Rodrick in the phone.
Disposition: MRI pending.
Daily PT/INR
Total time spent on today's encounter was 52 minutes which included time spent in counseling the patient/family regarding diagnosis and treatment plan as listed above, goals of care, and symptom management. Case was discussed with nursing staff,
specialists, and care coordinators/case management. All labs and imaging personally reviewed by me. Remainder the time spent in detailed review of previous records, lab data, imaging, and other medical provider documentation.
Anticipated Discharge: 24 - 48 hours
Subjective/Interval History
-
Date of Service: July 19, 2025
Patient seen and examined at bedside, denies any chest pain or shortness of breath, no abdominal pain, no nausea, no vomiting, no diarrhea or constipation.
Objective Data
-
Labs:
Laboratory Results
07/19/25
07:47
WBC 3.5 L
Hgb 13.9
Hct 40.6
Plt Count 92 L
PT 16.6 H
INR 1.32
Sodium 141
Potassium 4.5
Chloride 105
Carbon Dioxide 27
BUN 21 H
Creatinine 1.4 H
Glucose 87
Calcium 9.2
Vital Signs:
Vital Signs
Temp Pulse Resp BP Pulse Ox
98 F 73 18 132/79 98
07/19/25 11:40 07/19/25 08:56 07/19/25 11:40 07/19/25 08:56 07/19/25 11:40
I&O
07/18/25 07/19/25 07/20/25
06:59 06:59 06:59
Intake Total 480 / 480 420 / 420
Output Total 800 / 800
Balance -320 / -320 420 / 420
Physical Exam
-
General: Well Developed, Well Nourished, No Apparent Distress and Comfortable
HEENT: Normocephalic, Atraumatic, Moist Mucous Membranes, No Ptosis, PERRLA and Nose Appears Normal
Respiratory: Clear to Auscultation and Non Labored Respirations
Cardiac: Regular Rhythm and S1/S2
Breast: Deferred by me
GI: Soft, Nontender, Nondistended and Normal Bowel Sounds
Genito-urinary: No Costovertebral Tender
Musculoskeletal: No Clubbing, No Cyanosis and No Edema
Skin: Warm
Neuro: Awake, Alert, Oriented, AO x 3 and No Motor Deficits
Psych: Calm
Data Reviewed
-
Diagnostic Radiology: Image personally visualized and interpreted and Report Reviewed by me
CT Scan: Image personally visualized and interpreted and Report Reviewed by me
Ultrasound: Image personally visualized and interpreted and Report Reviewed by me
MRI: Image personally visualized and interpreted and Report Reviewed by me
Medical Tests (Nuc Med, Echo etc): Image personally visualized and interpreted and Report Reviewed by me
Labs: Labs Reviewed by me
Old Records: Reviewed
--- NOTE | 2025-07-19 15:01 | CM ---
Met with patient at bedside to complete initial assessment; and with his permission spoke with his primary contact/friend/Healthcare POA, Megan Angel via phone # [phone]. Per Megan, Son, Rodrick, is Financial POA
[facility] notice reviewed with friend/Healthcare POA, Megan Angel via phone # [phone]; form dated/timed; Copy left at the bedside with patient
Family/Primary Care Provider verified: DAVIDSON Le; Address: [address] [place] [address] [address], [place] [address];
Pharmacy verified: [facility] @ [address] [place] [address]
Megan confirmed that patient lives w/ son and grandson in patient's multilevel home; 1 step to enter home; half bath 1st floor; 2nd floor bath has stall shower
PLOF: right sided weakness at baseline; caregivers assist w/ personal care 4 hours every day 0830 -1230; was going to outpatient therapy 2 days/week; does not drive
Home Health services in January 2025 with [facility]; no history of SNF utilization
Son or Friend will transport home
Discharge plan to be determined; PT/OT evals pending. Case Management will monitor and support coordination of services when identified
[2025-07-19 15:50] VITALS: BP 161/80
[2025-07-19] MEDS: COUMADIN 10 MG PO (17:42)
[2025-07-19] MEDS: LIPITOR 40 MG PO (17:42)
[2025-07-19 19:49] VITALS: BP 147/92; BP 162/82; PULSE 65; PULSE 66
[2025-07-19 23:10] VITALS: BP 158/78
[2025-07-20] VITALS (10 sets, daily range): BP systolic 134–170; BP diastolic 67–95; PULSE 65–95; O2SAT 95–98
[2025-07-20 06:51] LABS: INR 1.66; PT 19.8 Sec (11.4-14.6)
[2025-07-20] MEDS: LEXAPRO 20 MG PO (09:05)
[2025-07-20] MEDS: ARICEPT 10 MG PO (09:05)
[2025-07-20] MEDS: KEPPRA 500 MG PO (09:05)
[2025-07-20] MEDS: LOVENOX 70 MG SC ×2 (09:05→20:34)
--- NOTE | 2025-07-20 11:30 | W.PN.HOSP.TC ---
Today's Communication/Plan
-
Upgrade to inpatient
Daily PT/INR
Pending physical therapy eval
Assessment / Plan
Assessment / Plan
Impression:
Patient is 70 years old with a history of CVA/TIAs with baseline R sided weakness and antiphospholipid syndrome on Coumadin , vascular dementia, hyperlipidemia, hypertension, who came to the ER with syncope.
Patient was taking shower at home and he started to feel lightheaded and passed out, envelope folder was able to prevent him from falling directly to the ground or hitting his head.
Patient also has similar event to medics when he was getting to ambulance.
CT scan done in the ER came back shows no acute finding.
MRI brain shows No acute intracranial abnormality noted.
Assessment/plan:
Syncope
CT head done in the ER shows no acute finding
Patient with history of CVA in the past secondary to antiphospholipid
Currently on Coumadin but INR is subtherapeutic
Admit to telemetry bed.
Frequent neurocheck.
Allow permissive hypertension.
Neurology consulted.
MRI brain shows No acute intracranial abnormality noted
hemoglobin A1c 5.3 ,
fasting lipid panel shows total LDL 175, total cholesterol 252, will increase atorvastatin to 40 mg on discharge
PT/OT consulted.
Social service for discharge.
Subtherapeutic INR.
Patient admitted taking his Coumadin as prescribed.
Discussed with son Rodrick in the phone who admitted that the patient taking the 5 mg and check INR every Tuesday.
If INR below to increase dose to 7.5 mg.
Patient did not check his INR this last Tuesday.
Increased Coumadin for now to 10 mg at night.
Lovenox bridging 1 mg/kg twice daily
Daily INR
' Patient still has subtherapeutic INR will need additional bridging, will upgrade to inpatient'
History of antiphospholipid syndrome.
Continue Coumadin/Lovenox bridging
History of seizure
Diagnosed last admission.
Experience weakness and deconditioning from Keppra
Supposed to be on Keppra 500 mg twice daily but son said he only takes it once a day.
History�of�hypertension
Hold Norvasc
History of hyperlipidemia
Continue�statin
History of dementia
Continue�donepezil
History of depression.
Continue escitalopram
CKD stage IIIb
Avoid nephrotoxic
�
CODE STATUS:�Full�code
DVT�prophylaxis:�Coumadin
Diet:�Regular�diet
Family�communication: Discussed with son Rodrick in the phone.
Disposition: Upgrade to inpatient
Daily PT/INR
Pending physical therapy eval
Total time spent on today's encounter was 52 minutes which included time spent in counseling the patient/family regarding diagnosis and treatment plan as listed above, goals of care, and symptom management. Case was discussed with nursing staff,
specialists, and care coordinators/case management. All labs and imaging personally reviewed by me. Remainder the time spent in detailed review of previous records, lab data, imaging, and other medical provider documentation.
Anticipated Discharge: 24 - 48 hours
Subjective/Interval History
-
Date of Service: July 20, 2025
Patient seen and examined at bedside, denies any chest pain or shortness of breath, no abdominal pain, no nausea, no vomiting, no diarrhea or constipation.
Objective Data
-
Labs:
Laboratory Results
07/20/25
06:13
PT 19.8 H
INR 1.66
Vital Signs:
Vital Signs
Temp Pulse Resp BP Pulse Ox
98.7 F 62 18 160/89 98
07/20/25 07:52 07/20/25 07:52 07/20/25 07:52 07/20/25 07:52 07/20/25 08:59
I&O
10/03/25 10/04/25 10/05/25
06:59 06:59 06:59
Intake Total 480 / 480 420 / 420
Output Total 800 / 800 175 / 175
Balance -320 / -320 245 / 245
Physical Exam
-
General: Well Developed, Well Nourished, No Apparent Distress and Comfortable
HEENT: Normocephalic, Atraumatic, Moist Mucous Membranes, No Ptosis, PERRLA and Nose Appears Normal
Respiratory: Clear to Auscultation and Non Labored Respirations
Cardiac: Regular Rhythm and S1/S2
Breast: Deferred by me
GI: Soft, Nontender, Nondistended and Normal Bowel Sounds
Genito-urinary: No Costovertebral Tender
Musculoskeletal: No Clubbing, No Cyanosis and No Edema
Skin: Warm
Neuro: Awake, Alert, Oriented, AO x 3 and No Motor Deficits
Psych: Calm
--- NOTE | 2025-07-20 17:08 | PTCARENOTE ---
Pt awake and alert, oriented to self/birthdate; occ to place/year; very forgetful. ROWLEY; RUe weak. Pt very reluctant to attempt OOB activity; stated he does not get OOB at home. Pt OOB to chair with assist x2/walker, very unsteady w/OOB activity.
Fall prec maintained. VSS. Telemetry:NSR. On room air- pulse ox 99%, no SOB noted. Abd soft, rounded, bre PO, appetite fair. Voids clear yellow urine in urinal. Resting in bed at present, no c/o. Will continue to monitor.
[2025-07-20] MEDS: COUMADIN 10 MG PO (17:29)
[2025-07-20] MEDS: LIPITOR 40 MG PO (17:31)
--- NOTE | 2025-07-20 18:13 | PTCARENOTE ---
BP currently 170/94; pt without c/o. Dr. Palmer notified. Will continue to monitor.
[2025-07-20] MEDS: NORVASC 10 MG PO (18:20)
[2025-07-21] VITALS (7 sets, daily range): BP systolic 139–153; BP diastolic 78–92; PULSE 74–85
--- NOTE | 2025-07-21 04:53 | PTCARENOTE ---
Pt oriented at start of shift, but then became confused. Pt attempting to get OOB bed alarm going off. Pt attempting to stand to use urinal. Pt became aggressive and agitated when attempting to help. Pt able to reorient and get settled in bed. Bed
alarm in place. Call davis in reach. Pt denies any complaints. Will continue to monitor.
[2025-07-21 07:55] LABS: Hematocrit 39.0 % (39.0-52.0); Hemoglobin 13.2 g/dL (13.0-18.0); INR 1.92; Mean Corp Hgb Conc. 33.8 g/dL (33.0-37.0); Mean Corpuscular Volume 87.2 fL (80.0-94.0); PT 22.2 Sec (11.4-14.6); Platelet Count 79 10^3/uL (130-400); Red Cell Dist. Width 12.6 % (11.5-14.5)
[2025-07-21] MEDS: LOVENOX 70 MG SC (08:35)
[2025-07-21] MEDS: KEPPRA 500 MG PO (08:36)
[2025-07-21] MEDS: ARICEPT 10 MG PO (08:36)
[2025-07-21] MEDS: NORVASC 10 MG PO (08:36)
[2025-07-21] MEDS: LEXAPRO 20 MG PO (08:36)
[2025-07-21 08:54] LABS: Blood Urea Nitrogen 26 mg/dl (9-20); Calcium 8.8 mg/dl (8.4-10.2); Carbon Dioxide 27 mmol/L (22-30); Chloride 106 mmol/L (98-107); Estimated Creatinine Clearance 44 ml/min; Glucose 91 mg/dl (70-99); Potassium 4.2 mmol/L (3.5-5.1); Sodium 139 mmol/L (135-145); eGFR 49.77
--- NOTE | 2025-07-21 11:49 | W.PN.HOSP.TC ---
Today's Communication/Plan
-
Medically cleared for discharge
Assessment / Plan
Assessment / Plan
Impression:
Patient is 70 years old with a history of CVA/TIAs with baseline R sided weakness and antiphospholipid syndrome on Coumadin , vascular dementia, hyperlipidemia, hypertension, who came to the ER with syncope.
Patient was taking shower at home and he started to feel lightheaded and passed out, keno dealer was able to prevent him from falling directly to the ground or hitting his head.
Patient also has similar event to medics when he was getting to ambulance.
CT scan done in the ER came back shows no acute finding.
MRI brain shows No acute intracranial abnormality noted.
Discharged to rehab once bed available.
Assessment/plan:
Syncope
CT head done in the ER shows no acute finding
Patient with history of CVA in the past secondary to antiphospholipid
Currently on Coumadin but INR is subtherapeutic
Admit to telemetry bed.
Frequent neurocheck.
Allow permissive hypertension.
Neurology consulted.
MRI brain shows No acute intracranial abnormality noted
hemoglobin A1c 5.3 ,
fasting lipid panel shows total LDL 175, total cholesterol 252, will increase atorvastatin to 40 mg on discharge
PT/OT consulted.
Social service for discharge.
Subtherapeutic INR.
Patient admitted taking his Coumadin as prescribed.
Discussed with son Rodrick in the phone who admitted that the patient taking the 5 mg and check INR every Tuesday.
If INR below to increase dose to 7.5 mg.
Patient did not check his INR this last Tuesday.
Increased Coumadin for now to 10 mg at night.
Lovenox bridging 1 mg/kg twice daily
Daily INR
10/
INR 1.9.
Will discontinue Lovenox and lower Coumadin to 7.5 mg
History of antiphospholipid syndrome.
Continue Coumadin/Lovenox bridging
INR 1.9.
Will discontinue Lovenox and lower Coumadin to 7.5 mg
History of seizure
Diagnosed last admission.
Experience weakness and deconditioning from Keppra
Supposed to be on Keppra 500 mg twice daily but son said he only takes it once a day.
History�of�hypertension
Hold Norvasc
History of hyperlipidemia
Continue�statin
History of dementia
Continue�donepezil
History of depression.
Continue escitalopram
CKD stage IIIb
Avoid nephrotoxic
�
CODE STATUS:�Full�code
DVT�prophylaxis:�Coumadin
Diet:�Regular�diet
Family�communication: Discussed with praful Mensah in the phone.
Disposition: Medically cleared for discharge
Total time spent on today's encounter was 52 minutes which included time spent in counseling the patient/family regarding diagnosis and treatment plan as listed above, goals of care, and symptom management. Case was discussed with nursing staff,
specialists, and care coordinators/case management. All labs and imaging personally reviewed by me. Remainder the time spent in detailed review of previous records, lab data, imaging, and other medical provider documentation.
Anticipated Discharge: Today
Subjective/Interval History
-
Date of Service: July 21, 2025
Patient seen and examined at bedside, denies any chest pain or shortness of breath, no abdominal pain, no nausea, no vomiting, no diarrhea or constipation.
Objective Data
-
Labs:
Laboratory Results
07/21/25
07:07
WBC 4.1 L
Hgb 13.2
Hct 39.0
Plt Count 79 L
PT 22.2 H
INR 1.92
Sodium 139
Potassium 4.2
Chloride 106
Carbon Dioxide 27
BUN 26 H
Creatinine 1.5 H
Glucose 91
Calcium 8.8
Vital Signs:
Vital Signs
Temp Pulse Resp BP Pulse Ox
98.7 F 64 16 150/83 99
07/21/25 07:32 07/21/25 08:36 07/21/25 07:32 07/21/25 08:36 07/21/25 07:32
I&O
07/20/25 07/21/25 07/22/25
06:59 06:59 06:59
Intake Total 420 / 420 540 / 540
Output Total 175 / 175 500 / 500
Balance 245 / 245 40 / 40
Physical Exam
-
General: Well Developed, Well Nourished, No Apparent Distress and Comfortable
HEENT: Normocephalic, Atraumatic, Moist Mucous Membranes, No Ptosis, PERRLA and Nose Appears Normal
Respiratory: Clear to Auscultation and Non Labored Respirations
Cardiac: Regular Rhythm and S1/S2
Breast: Deferred by me
GI: Soft, Nontender, Nondistended and Normal Bowel Sounds
Genito-urinary: No Costovertebral Tender
Musculoskeletal: No Clubbing, No Cyanosis and No Edema
Skin: Warm
Neuro: Awake, Alert, Oriented and Other (Baseline right upper extremity weakness)
Psych: Calm
--- NOTE | 2025-07-21 13:27 | CM ---
Addendum entered by Millie Villalobos 07/21/25 13:48:
CM left [employer] SNF providers printout for [place] area on bedside for POA to review . CM to f/u tomorrow
Original Note:
Met with pt briefly to discuss/inform him that the PT/OT recommendation for skilled care. Pt refused SNF and asked for O/P PT.
I spoke with Megan Angel, [facility] POA, via phone about Pt's refusal to go to a SNF. She stated that he has home PT in the past and that was not effective. She stated that she would come in today and talk to the pt. MARGO explained that PT eval
documents that he needs the assistance of 2 to perform most of the eval activities. Megan stated she would bring in the [facility] POA papers tonight when she visits. MARGO explained process of admitting pt to a SNF and that he would not be leaving the
hospital today
Plan: TBD
[2025-07-21] MEDS: COUMADIN 7.5 MG PO (17:01)
[2025-07-21] MEDS: LIPITOR 40 MG PO (17:02)
[2025-07-22 03:58] VITALS: BP 148/79
[2025-07-22 07:40] VITALS: BP 132/81
[2025-07-22 08:43] LABS: INR 2.19; PT 24.4 Sec (11.4-14.6)
[2025-07-22] MEDS: NORVASC 10 MG PO (08:48)
[2025-07-22] MEDS: KEPPRA 500 MG PO (08:48)
[2025-07-22 08:49] LABS: Hematocrit 38.0 % (39.0-52.0); Hemoglobin 13.0 g/dL (13.0-18.0); Mean Corp Hgb Conc. 34.2 g/dL (33.0-37.0); Mean Corpuscular Volume 86.8 fL (80.0-94.0); Platelet Count 76 10^3/uL (130-400); Red Cell Dist. Width 12.4 % (11.5-14.5)
[2025-07-22] MEDS: LEXAPRO 20 MG PO (08:49)
[2025-07-22] MEDS: ARICEPT 10 MG PO (08:49)
[2025-07-22 09:57] LABS: Blood Urea Nitrogen 26 mg/dl (9-20); Calcium 9.0 mg/dl (8.4-10.2); Estimated Creatinine Clearance 48 ml/min; Glucose 97 mg/dl (70-99); Sodium 139 mmol/L (135-145); eGFR 54.07
[2025-07-22 11:00] VITALS: BP 126/82; BP 130/79; BP 153/70; PULSE 65; PULSE 77; PULSE 86
--- NOTE | 2025-07-22 11:58 | CM ---
Alex is cleared for discharge today. MARGO spoke with POAMegan, to make her aware that pt is ready for discharge, but is not agreeable to going to SNF. POA and family members are discussing the possibility of him returning home with 4 hours of
private home health aid services (or more if they can get additional help in the home) and they cannot convince him to go to SNF.
Plan: Await call from POA with decision regarding plan for discharge. If SNF is agreed upon, POA/family will need to identify facilities of choice and insurance authorization will be needed.
--- NOTE | 2025-07-22 12:06 | CM ---
Addendum entered by Kendal Ohara 07/22/25 13:53:
Call received from Alex' POA who advised that pt is now agreeable to going to SNF.
Referrals sent to [facility] and [facility] (requesting facilities in the order I entered); awaiting response to referral.
Original Note:
Alex is cleared for discharge today, but is not agreeable to SNF. Alex is AAOx3, can make his own decisions. Call placed to pt's POA (Megan) to make her aware that Alex is cleared for discharge today, and to discuss a plan for discharge. POA
is contacting pt's son to discuss plan for discharge.
Plan: Await further direction from POA/family members regarding discharge plan. Home with services vs. SNF pending pt's acceptance of services.
[2025-07-22 13:41] LABS: Carbon Dioxide 24 mmol/L (22-30); Chloride 107 mmol/L (98-107); Potassium 4.3 mmol/L (3.5-5.1)
[2025-07-22 14:52] VITALS: BP 131/75
[2025-07-22 15:40] VITALS: BP 131/73
--- NOTE | 2025-07-22 15:50 | W.PN.HOSP.TC ---
Today's Communication/Plan
-
discharge to rehab once bed available
Assessment / Plan
Assessment / Plan
Impression:
Patient is 70 years old with a history of CVA/TIAs with baseline R sided weakness and antiphospholipid syndrome on Coumadin , vascular dementia, hyperlipidemia, hypertension, who came to the ER with syncope.
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
Patient also has similar event to medics when he was getting to ambulance.
CT scan done in the ER came back shows no acute finding.
MRI brain shows No acute intracranial abnormality noted.
Discharged to rehab once bed available.
Assessment/plan:
Syncope
CT head done in the ER shows no acute finding
Patient with history of CVA in the past secondary to antiphospholipid
Currently on Coumadin but INR is subtherapeutic
Admit to telemetry bed.
Frequent neurocheck.
Allow permissive hypertension.
Neurology consulted.
MRI brain shows No acute intracranial abnormality noted
hemoglobin A1c 5.3 ,
fasting lipid panel shows total LDL 175, total cholesterol 252, will increase atorvastatin to 40 mg on discharge
PT/OT consulted.
Social service for discharge.
Subtherapeutic INR.
Patient admitted taking his Coumadin as prescribed.
Discussed with son Rodrick in the phone who admitted that the patient taking the 5 mg and check INR every Tuesday.
If INR below to increase dose to 7.5 mg.
Patient did not check his INR this last Tuesday.
Increased Coumadin for now to 10 mg at night.
Lovenox bridging 1 mg/kg twice daily
Daily INR
07/21
INR 1.9.
Will discontinue Lovenox and lower Coumadin to 7.5 mg
History of antiphospholipid syndrome.
Continue Coumadin/Lovenox bridging
INR 1.9.
Will discontinue Lovenox and lower Coumadin to 7.5 mg
History of seizure
Diagnosed last admission.
Experience weakness and deconditioning from Keppra
Supposed to be on Keppra 500 mg twice daily but son said he only takes it once a day.
History�of�hypertension
Hold Norvasc
History of hyperlipidemia
Continue�statin
History of dementia
Continue�donepezil
History of depression.
Continue escitalopram
CKD stage IIIb
Avoid nephrotoxic
�
CODE STATUS:�Full�code
DVT�prophylaxis:�Coumadin
Diet:�Regular�diet
Family�communication: Discussed with praful Mensah in the phone.
Disposition: Medically cleared for discharge
Total time spent on today's encounter was 52 minutes which included time spent in counseling the patient/family regarding diagnosis and treatment plan as listed above, goals of care, and symptom management. Case was discussed with nursing staff,
specialists, and care coordinators/case management. All labs and imaging personally reviewed by me. Remainder the time spent in detailed review of previous records, lab data, imaging, and other medical provider documentation.
Anticipated Discharge: Today
Subjective/Interval History
-
Date of Service: July 22, 2025
Patient seen and examined at bedside, denies any chest pain or shortness of breath, no abdominal pain, no nausea, no vomiting, no diarrhea or constipation.
Objective Data
-
Labs:
Laboratory Results
07/22/25
08:14
WBC 4.1 L
Hgb 13.0
Hct 38.0 L
Plt Count 76 L
PT 24.4 H
INR 2.19
Sodium 139
Potassium 4.3
Chloride 107
Carbon Dioxide 24
BUN 26 H
Creatinine 1.4 H
Glucose 97
Calcium 9.0
Vital Signs:
Vital Signs
Temp Pulse Resp BP Pulse Ox
98.1 F 65 16 153/70 98
07/22/25 11:00 07/22/25 11:00 07/22/25 11:00 07/22/25 11:00 07/22/25 11:00
I&O
07/21/25 07/22/25 07/23/25
06:59 06:59 06:59
Intake Total 540 / 540 720 / 720
Output Total 500 / 500 350 / 350
Balance 40 / 40 370 / 370
Physical Exam
-
General: Well Developed, Well Nourished, No Apparent Distress and Comfortable
HEENT: Normocephalic, Atraumatic, Moist Mucous Membranes, No Ptosis, PERRLA and Nose Appears Normal
Respiratory: Clear to Auscultation and Non Labored Respirations
Cardiac: Regular Rhythm and S1/S2
Breast: Deferred by me
GI: Soft, Nontender, Nondistended and Normal Bowel Sounds
Genito-urinary: No Costovertebral Tender
Musculoskeletal: No Clubbing, No Cyanosis and No Edema
Skin: Warm
Neuro: Awake, Alert, Oriented and Other (Baseline right upper extremity weakness)
Psych: Calm
--- NOTE | 2025-07-22 16:09 | PTCARENOTE ---
Pt awake and alert; oriented to self/birthdate; occ to place; forgetful; anxious at times. ROWLEY; has RUE/RLE weakness. OOB to chair with assist x 1-2/walker, needs much encouragement to participate in OOB activity. VSS. Telemetry:NSR. On room
air- pulse ox 99%, no SOB noted. Abd soft, rounded, bre PO; appetite good. Voids clear yellow urine in urinal; spills at times. Resting in bed at present, no c/o. Will continue to monitor.
--- NOTE | 2025-07-22 16:31 | CM ---
Addendum entered by Kendal Ohara 07/22/25 17:12:
SNF authorization obtained from [facility] for admission to [facility] for 07/22-07/26/2025. TT to Ashley Silverio with authorization information.
Original Note:
Pt accepted for transfer to [facility] pending SNF authorization from [facility].
Ambulance transport forms submitted to [employer] to coordinate transfer to [facility].
IMM provided to patient; he did not want to sign, but gave verbal consent. Copy of IMM given to pt.
Plan: Transfer to [facility] today pending insurance authorization; currently on hold for 26 minutes with [facility].
CM to update care team once authorization obtained.
[facility] Report: [phone]
[facility]
[2025-07-22] MEDS: COUMADIN 7.5 MG PO (17:54)
[2025-07-22] MEDS: LIPITOR 40 MG PO (17:55)
[2025-07-22 19:18] VITALS: BP 137/74
== END 2025-07-22 20:03 | DRG 312 ==
LOC: 4 EAST ACU 11:33
PROVIDERS: ADMITTING PHYSICIAN General Practice; CONSULT PHYSICIAN Psychiatry & Neurology Neurology; EMERGENCY PHYSICIAN Emergency Medicine
DX: R55 Syncope and collapse (principal); D68.61 Antiphospholipid syndrome; I69.351 Hemiplegia and hemiparesis following cerebral infarction affecting right dominant side; F01.50 Vascular dementia, unspecified severity, without behavioral disturbance, psychotic disturbance, mood disturbance, and anxiety; Z79.01 Long term (current) use of anticoagulants; E78.5 Hyperlipidemia, unspecified; N18.32 Chronic kidney disease, stage 3b; I12.9 Hypertensive chronic kidney disease with stage 1 through stage 4 chronic kidney disease, or unspecified chronic kidney disease; Z79.899 Other long term (current) drug therapy; I48.91 Unspecified atrial fibrillation; F32.A Depression, unspecified
CPT/HCPCS: 70450; 70551; 80048; 80053; 80061; 81003; 81015; 82962; 83036; 83735; 84484; 85025; 85027; 85610; 85730; 93005; 96360; 96361; 97163; 97167; 97530; 99285

== ENCOUNTER 2025-07-24 17:57 | Observation (INO) | payer OTHER, SELFPAY ==
[2025-07-24 09:04] VITALS: BP 126/76
--- NOTE | 2025-07-24 11:31 | ED.GENMED ---
History of Present Illness
<Sukhi Chaidez PA-C - Last Filed: 07/25/25 08:12>
General
Chief Complaint: Social Service Referral
Time Seen by Provider: 07/24/25 10:55
History of Present Illness
History of Present Illness:
71-year-old male with history of vascular dementia presents to the emergency department for evaluation of noncompliance with therapy regimen. Was discharged from the hospital 2 days ago to [facility] for acute rehab, apparently has not been eating
and has been refusing to take his care. He states today that he simply does not want to be in a halfway and wants to go home. He has no acute medical complaints at this time
Review of Systems
<Sukhi Chaidez PA-C - Last Filed: 07/25/25 08:12>
Review of Systems
Allergies reviewed?: Yes
All Other Systems: ROS reviewed and negative except as documented in HPI and ROS
Phy Exam
<Sukhi Chaidez PA-C - Last Filed: 07/25/25 08:12>
Physical Exam
Physical Exam:
GEN: Well appearing, NAD, WDWN
HEENT: Oral mucosa moist, no scleral icterus
Cardiac: Regular rate
Lung: No respiratory distress, no tachypnea
MSK: No gross deformity or injuries
Skin: Good color, no pallor or jaundice, no rashes
Neuro: AO x3, moves all extremities freely
Psych: Calm, cooperative
Course
<Sukhi Chaidez PA-C - Last Filed: 07/25/25 08:12>
Orders/Labs/Results
Orders:
Orders
07/24/25 11:13
Case Management Consult ONCE
Case Management Consult: VN/Home Care
07/24/25 14:49
Lorazepam [Ativan] 1 mg PO Q4HPRN PRN
07/24/25 Dinner
Regular
At Your Request: Non-Participating
Does patient need a safe tray?: No
07/24/25 16:51
PT Consult [Pt Eval And Treat] Urgent
Activity Level: As Tolerated
07/24/25 17:10
Complete Blood Count/With Diff Urgent
Comprehensive Metabolic Panel Urgent
07/24/25 17:22
Admit/Transfer Patient As Directed
Co-Sign Provider:
Level of Care: Observation services
Assign to:: Medical/Surgical
Physician / Group: karely
Diagnosis: agitation
PRN Pain Medication Management As Directed
May give lesser potent ordered pain med per pt: Yes
preference::
Protocol:: Medication orders for pain may be administered in a
manner that supports deferring to patient preference
when the pt is:
- Requesting an ordered lesser potent pain medication.
Least to most potent pain medications are defined
as: acetaminophen < NSAID < tramadol < opioids
(morphine, oxycodone, hydromorphone).
- Requesting a lesser dose of the same medication IF
ORDERED.
- Requesting a less intrusive route of administration
if both routes are prescribed by the provider (PO <
IV).
07/24/25 17:23
Code Status As Directed
Resuscitation Status: Full Code
07/24/25 18:00
Atorvastatin [Lipitor] 20 mg PO QPM
Warfarin [Coumadin] 7.5 mg PO QPM
07/24/25 18:50
Acetaminophen [Tylenol] 650 mg PO Q4HPRN PRN mild pain
07/24/25 20:00
Levetiracetam [Keppra] 500 mg PO BID
07/24/25 20:04
Bisacodyl [Dulcolax] 10 mg RECTAL DAILYPRN PRN if no bm aftr mom give on day 5
Magnesium Hydroxide [Milk of Magnesia] 30 ml PO [id number] PRN if no bm by 3rd day give on day 4
07/24/25 20:04
Activity As Directed
Activity Level: As Tolerated
Vital Signs As Directed
Frequency: Per unit guidelines
07/24/25 22:00
Quetiapine Fumarate [Seroquel] 25 mg PO HS
07/25/25 05:43
Complete Blood Count/With Diff IN AM
Comprehensive Metabolic Panel IN AM
07/25/25 08:00
Amlodipine [Norvasc] 5 mg PO DAILY
Cholecalciferol (Vitamin D3) [VITAMIN D3 (cholecalciferol)] 50 mcg PO DAILY
Donepezil HCl [Aricept] 10 mg PO DAILY
Escitalopram Oxalate [Lexapro] 20 mg PO DAILY
Multivitamin [Theragran] 1 tablet PO DAILY
Abnormal Lab Results
07/24/25
17:10
RBC 4.60 L 10^6/uL
(4.70-6.10)
Plt Count 68 L 10^3/uL
(130-400)
MPV 12.5 H fL
(7.4-10.4)
Absolute Lymphs (auto) 0.5 L 10^3/uL
(1.2-3.4)
Absolute Monos (auto) 0.8 H 10^3/uL
(0.1-0.6)
Lymphocytes % 10.8 L %
(20.5-51.1)
Monocytes % 16.9 H %
(1.7-9.3)
Potassium 3.4 L mmol/L
(3.5-5.1)
Chloride 112 H mmol/L
(98-107)
Carbon Dioxide 21 L mmol/L
(22-30)
BUN 22 H mg/dl
(9-20)
Glucose 119 H mg/dl
(70-99)
Calcium 8.0 L mg/dl
(8.4-10.2)
Total Protein 6.1 L g/dl
(6.3-8.2)
07/24/25 17:10
07/24/25 17:10
Vital Signs
Initial and Last Documented VS:
Initial Vital Signs
Temp Pulse Resp BP Pulse Ox
98.2 F 92 16 126/76 98
07/24/25 09:04 07/24/25 09:04 07/24/25 09:04 07/24/25 09:04 07/24/25 09:04
Last Documented Vital Signs
Temp Pulse Resp BP Pulse Ox
97.7 F 81 18 120/76 94
07/24/25 14:48 07/24/25 21:51 07/24/25 21:51 07/24/25 21:51 07/25/25 04:08
<Mahin Pagan MD - Last Filed: 07/24/25 16:55>
Orders/Labs/Results
Orders:
Orders
07/24/25 11:13
Case Management Consult ONCE
Case Management Consult: VN/Home Care
07/24/25 14:49
Lorazepam [Ativan] 1 mg PO Q4HPRN PRN
07/24/25 Dinner
Regular
At Your Request: Non-Participating
Does patient need a safe tray?: No
07/24/25 16:51
PT Consult [Pt Eval And Treat] Urgent
Activity Level: As Tolerated
07/24/25 17:10
Complete Blood Count/With Diff Urgent
Comprehensive Metabolic Panel Urgent
07/24/25 17:22
Admit/Transfer Patient As Directed
Co-Sign Provider:
Level of Care: Observation services
Assign to:: Medical/Surgical
Physician / Group: karely
Diagnosis: agitation
PRN Pain Medication Management As Directed
May give lesser potent ordered pain med per pt: Yes
preference::
Protocol:: Medication orders for pain may be administered in a
manner that supports deferring to patient preference
when the pt is:
- Requesting an ordered lesser potent pain medication.
Least to most potent pain medications are defined
as: acetaminophen < NSAID < tramadol < opioids
(morphine, oxycodone, hydromorphone).
- Requesting a lesser dose of the same medication IF
ORDERED.
- Requesting a less intrusive route of administration
if both routes are prescribed by the provider (PO <
IV).
07/24/25 17:23
Code Status As Directed
Resuscitation Status: Full Code
07/24/25 18:00
Atorvastatin [Lipitor] 20 mg PO QPM
Warfarin [Coumadin] 7.5 mg PO QPM
07/24/25 18:50
Acetaminophen [Tylenol] 650 mg PO Q4HPRN PRN mild pain
07/24/25 20:00
Levetiracetam [Keppra] 500 mg PO BID
07/24/25 20:04
Bisacodyl [Dulcolax] 10 mg RECTAL DAILYPRN PRN if no bm aftr mom give on day 5
Magnesium Hydroxide [Milk of Magnesia] 30 ml PO [id number] PRN if no bm by 3rd day give on day 4
07/24/25 20:04
Activity As Directed
Activity Level: As Tolerated
Vital Signs As Directed
Frequency: Per unit guidelines
07/24/25 22:00
Quetiapine Fumarate [Seroquel] 25 mg PO HS
07/25/25 05:43
Complete Blood Count/With Diff IN AM
Comprehensive Metabolic Panel IN AM
07/25/25 08:00
Amlodipine [Norvasc] 5 mg PO DAILY
Cholecalciferol (Vitamin D3) [VITAMIN D3 (cholecalciferol)] 50 mcg PO DAILY
Donepezil HCl [Aricept] 10 mg PO DAILY
Escitalopram Oxalate [Lexapro] 20 mg PO DAILY
Multivitamin [Theragran] 1 tablet PO DAILY
Abnormal Lab Results
07/24/25
17:10
RBC 4.60 L 10^6/uL
(4.70-6.10)
Plt Count 68 L 10^3/uL
(130-400)
MPV 12.5 H fL
(7.4-10.4)
Absolute Lymphs (auto) 0.5 L 10^3/uL
(1.2-3.4)
Absolute Monos (auto) 0.8 H 10^3/uL
(0.1-0.6)
Lymphocytes % 10.8 L %
(20.5-51.1)
Monocytes % 16.9 H %
(1.7-9.3)
Potassium 3.4 L mmol/L
(3.5-5.1)
Chloride 112 H mmol/L
(98-107)
Carbon Dioxide 21 L mmol/L
(22-30)
BUN 22 H mg/dl
(9-20)
Glucose 119 H mg/dl
(70-99)
Calcium 8.0 L mg/dl
(8.4-10.2)
Total Protein 6.1 L g/dl
(6.3-8.2)
07/24/25 17:10
07/24/25 17:10
Vital Signs
Initial and Last Documented VS:
Initial Vital Signs
Temp Pulse Resp BP Pulse Ox
98.2 F 92 16 126/76 98
07/24/25 09:04 07/24/25 09:04 07/24/25 09:04 07/24/25 09:04 07/24/25 09:04
Last Documented Vital Signs
Temp Pulse Resp BP Pulse Ox
97.7 F 81 18 120/76 94
07/24/25 14:48 07/24/25 21:51 07/24/25 21:51 07/24/25 21:51 07/25/25 04:08
<Rosmery De Souza PA-C - Last Filed: 07/25/25 00:23>
Orders/Labs/Results
Orders:
Orders
07/24/25 11:13
Case Management Consult ONCE
Case Management Consult: VN/Home Care
07/24/25 14:49
Lorazepam [Ativan] 1 mg PO Q4HPRN PRN
07/24/25 Dinner
Regular
At Your Request: Non-Participating
Does patient need a safe tray?: No
07/24/25 16:51
PT Consult [Pt Eval And Treat] Urgent
Activity Level: As Tolerated
07/24/25 17:10
Complete Blood Count/With Diff Urgent
Comprehensive Metabolic Panel Urgent
07/24/25 17:22
Admit/Transfer Patient As Directed
Co-Sign Provider:
Level of Care: Observation services
Assign to:: Medical/Surgical
Physician / Group: karely
Diagnosis: agitation
PRN Pain Medication Management As Directed
May give lesser potent ordered pain med per pt: Yes
preference::
Protocol:: Medication orders for pain may be administered in a
manner that supports deferring to patient preference
when the pt is:
- Requesting an ordered lesser potent pain medication.
Least to most potent pain medications are defined
as: acetaminophen < NSAID < tramadol < opioids
(morphine, oxycodone, hydromorphone).
- Requesting a lesser dose of the same medication IF
ORDERED.
- Requesting a less intrusive route of administration
if both routes are prescribed by the provider (PO <
IV).
07/24/25 17:23
Code Status As Directed
Resuscitation Status: Full Code
07/24/25 18:00
Atorvastatin [Lipitor] 20 mg PO QPM
Warfarin [Coumadin] 7.5 mg PO QPM
07/24/25 18:50
Acetaminophen [Tylenol] 650 mg PO Q4HPRN PRN mild pain
07/24/25 20:00
Levetiracetam [Keppra] 500 mg PO BID
07/24/25 20:04
Bisacodyl [Dulcolax] 10 mg RECTAL DAILYPRN PRN if no bm aftr mom give on day 5
Magnesium Hydroxide [Milk of Magnesia] 30 ml PO [id number] PRN if no bm by 3rd day give on day 4
07/24/25 20:04
Activity As Directed
Activity Level: As Tolerated
Vital Signs As Directed
Frequency: Per unit guidelines
07/24/25 22:00
Quetiapine Fumarate [Seroquel] 25 mg PO HS
07/25/25 05:43
Complete Blood Count/With Diff IN AM
Comprehensive Metabolic Panel IN AM
07/25/25 08:00
Amlodipine [Norvasc] 5 mg PO DAILY
Cholecalciferol (Vitamin D3) [VITAMIN D3 (cholecalciferol)] 50 mcg PO DAILY
Donepezil HCl [Aricept] 10 mg PO DAILY
Escitalopram Oxalate [Lexapro] 20 mg PO DAILY
Multivitamin [Theragran] 1 tablet PO DAILY
Abnormal Lab Results
07/24/25
17:10
RBC 4.60 L 10^6/uL
(4.70-6.10)
Plt Count 68 L 10^3/uL
(130-400)
MPV 12.5 H fL
(7.4-10.4)
Absolute Lymphs (auto) 0.5 L 10^3/uL
(1.2-3.4)
Absolute Monos (auto) 0.8 H 10^3/uL
(0.1-0.6)
Lymphocytes % 10.8 L %
(20.5-51.1)
Monocytes % 16.9 H %
(1.7-9.3)
Potassium 3.4 L mmol/L
(3.5-5.1)
Chloride 112 H mmol/L
(98-107)
Carbon Dioxide 21 L mmol/L
(22-30)
BUN 22 H mg/dl
(9-20)
Glucose 119 H mg/dl
(70-99)
Calcium 8.0 L mg/dl
(8.4-10.2)
Total Protein 6.1 L g/dl
(6.3-8.2)
07/24/25 17:10
07/24/25 17:10
Vital Signs
Initial and Last Documented VS:
Initial Vital Signs
Temp Pulse Resp BP Pulse Ox
98.2 F 92 16 126/76 98
07/24/25 09:04 07/24/25 09:04 07/24/25 09:04 07/24/25 09:04 07/24/25 09:04
Last Documented Vital Signs
Temp Pulse Resp BP Pulse Ox
97.7 F 81 18 120/76 94
07/24/25 14:48 07/24/25 21:51 07/24/25 21:51 07/24/25 21:51 07/25/25 04:08
<Sukhi Chaidez PA-C - Last Filed: 07/25/25 08:12>
MDM/Problems Addressed
MDM/Problems Addressed:
Patient seen by case management and after lengthy discussion with multiple family members the decision was made to discharge the patient back to rehab as family is not capable of caring for him and is currently weakened decompensated state. However,
[facility] is refusing to take the patient and thus, case managmeent will continue to search for a bed. Will sign out to oncoming team
<Sukhi Chaidez PA-C - Last Filed: 07/25/25 08:12>
*Pulse Oximetry
SaO2: 98
Oxygen Mode of Delivery: Room air
<Rosmery De Souza PA-C - Last Filed: 07/25/25 00:23>
*Pulse Oximetry
Patient hypoxic: no
*Critical Care Note
Total Time (30-74mins, 75-104mins- exclusive of procedures): Not Applicable
<Rosmery De Souza PA-C - Last Filed: 07/25/25 00:23>
Update Note
Update Note:
Update: Assumed care of patient pending CM consult. Discussed with immigration case worker�patient accepted to [facility] acute rehab pending PT consult. Bed availability is not until tomorrow. Will admit patient to hospital overnight pending PT eval and
planned placement tomorrow. Patient accepted to hospitalist service in stable condition.
ED Attending Note
<Sukhi Chaidez PA-C - Last Filed: 07/25/25 08:12>
-
Portions of this chart may have been created with voice recognition software.� Occasional wrong word or��sound alike� substitutions may have occurred due to the inherent limitations of voice recognition software.
<Mahin Pagan MD - Last Filed: 07/24/25 16:55>
ED Attending Note
Patient seen and examined by attending physician: Yes
ED Attending Note:
I have seen and evaluated the patient with a [id number] encounter. I have spoken to the advance practicer provider and involved in the medical history, the physical exam, medical decision making.
Evaluation and management service: agree unless noted differently below.
Results interpretation: agree unless noted differently below.
Focused HPI: 70-year-old male with history as noted significant for prior CVA with some right-sided weakness, antiphospholipid syndrome on Coumadin, vascular dementia, hypertension hyperlipidemia. He was just discharged from the hospital yesterday
after an admission for syncope. He was sent to [facility] rehab and was apparently not eating and refusing to participate in his care and so he was sent back to the ER.
Physical exam: Awake and alert not in distress. Vital signs normal. He is breathing comfortably with no signs of accessory muscle use or cyanosis. No gross edema.
Medical Decision Makin-year-old male returns to the ER from rehab facility due to failure to participate in his care there. He says that he does not want to be in rehab/nursing facility. Unfortunately family not capable of caring for him and
he needs rehab. [facility] refusing to take patient back and so case management consulted for alternate placement. Unfortunately no beds available until tomorrow and so we will admit to hospitalist for [facility] care pending placement.
Discharge Plan
Departure
Patient Disposition: Admit
Date of Disposition: 07/24/25
Time of Disposition: 13:27
Presentation/result/management discussed w/ accepting MD/DO: Hospitalist
Patient with high blood pressure during this ER visit?: No
Discharge Problem:
Generalized weakness
Interventions
Interventions:
*Risk Screen - Suicide Last Done: 07/24/25 11:39
*General Assessment Last Done: 07/24/25 11:39
*Neglect/Abuse Screening Last Done: 07/24/25 11:39
*ED- Fall Risk Assessment Last Done: 07/24/25 11:39
*ED COVID-19 Vaccine History Last Done: 07/24/25 11:39
*ED Influenza Vaccine History Last Done: 07/24/25 11:39
ED-Psychological Assessment Last Done: 07/24/25 11:39
--- NOTE | 2025-07-24 12:24 | EDCM ---
Addendum entered by Erin Daniels 07/24/25 16:56:
I left a message for his DIL Emeli with update.
Addendum entered by Erin Daniels 07/24/25 16:53:
I spoke to [facility], [facility] willing [facility] accept but requesting he come tomorrow, would like behaviors managed overnight before transfer. Discussed with Emilie CESAR, she will order PT eval and discuss with hospitalist.
Addendum entered by Erin Daniels 07/24/25 15:39:
Daughter in law Emeli came to ED and spoke to pt. I met with both of them bedside. Pt initially refused to return to [facility], Emeli explained he cannot return home until stair glide is installed, hopefully later this week. I reached out to
Ashley at [facility], they cannot accept pt back due to his behaviors there. Emeli asked for referral to be sent to [facility] as they had also accepted him. [facility] declined. I discussed patient with Flaquita, she requested referral be sent to [facility]. Awaiting approval.
Original Note:
CM received consult and reviewed chart. Discussed case with Panchito CESAR, he spoke to pt's son and his Medical POA Megan. I met with pt bedside in ED. He is adamant that he does not want to return to [facility] and wants to go home. I attempted to reach
pt's son but had to leave a voicemail. I was able to reach Megan, family is concerned that they will not not be able to care for him at home since he did not complete rehab. They did have caregiver for 4 hours a day, 830 to 1230 but are not sure that
is enough. They do not have the resources to hire 24 hour care. Pt's in in a memory care unit and they are covering those expenses. Pt's [id number] Emeli is going to come to the hospital to speak to him. She will call me when she gets
here.
Panchito updated via TT.
[2025-07-24 14:48] VITALS: BP 130/71
[2025-07-24 14:49] VITALS: BMI 21.4
[2025-07-24 17:11] VITALS: BP 128/69
--- NOTE | 2025-07-24 17:30 | HPS.HSE ---
Family Physician
-
Family Physician: NOT KNOW UNKNOWN - PT DOES
Chief Complaint
-
agitation
History of Present Illness
70-year-old male past medical history of CVA/TIAs, antiphospholipid syndrome, seizure, hypertension, hyperlipidemia, dementia, depression, CKD 3B presenting to emergency room from rehab because he was not participating in rehab. He was aggressive
at night and cursing at staff the rehab sent him here to get replaced. A lot of the rehab facilities declining to accept him.
Patient denies any symptoms at this time.
Medical History
Past Medical History
Past Medical History: Reports Other ( CVA/TIAs, antiphospholipid syndrome, seizure, hypertension, hyperlipidemia, dementia, depression, CKD 3B)
Past Surgical History: Reports None
Social History
Tobacco: Non-smoker
Alcohol: None
Drug: None
Family History
Family History: Not pertinent
Allergies / Home Medications
Allergies reflects when Allergies were last updated in [facility].
Home Medications with original date entered in [facility]
Allergy/Medication List:
Allergies
Allergy/AdvReac Type Severity Reaction Status Date / Time
Penicillins Allergy Rash Verified 07/24/25 09:09
Home Medications
amlodipine 5 mg tablet 10 mg PO DAILY Blood Pressure 01/26/25
atorvastatin 20 mg tablet 20 mg PO QPM High Cholesterol 01/26/25
cholecalciferol (vitamin D3) 50 mcg (2,000 unit) tablet (Vitamin D3) 50 mcg PO DAILY Supplement 01/26/25
donepezil 10 mg tablet 10 mg PO DAILY Mental Health/Anxiety 01/26/25
escitalopram oxalate 20 mg tablet 20 mg PO DAILY Mental Health/Anxiety 01/26/25
therapeutic multivitamin 1 tab PO DAILY Supplement 01/26/25
levetiracetam 500 mg tablet 500 mg PO BID #60 tabs 01/29/25
warfarin 7.5 mg tablet (Jantoven) 7.5 mg PO QPM #5 tabs 01/29/25
acetaminophen 325 mg tablet (Tylenol) 650 mg PO Q4HPRN PRN mild pain 07/24/25
bisacodyl 10 mg rectal suppository (Dulcolax (bisacodyl)) 10 mg UT DAILYPRN PRN if no bm aftr mom give on day 5 07/24/25
magnesium hydroxide 400 mg/5 mL oral suspension (Milk of Magnesia) 2,400 mg PO [id number] PRN if no bm by 3rd day give on day 4 07/24/25
sodium phosphates 19 gram-7 gram/118 mL enema (Fleet Enema) 118 ml UT DAILYPRN PRN if no bm aftr dulcoalx give on day 6 07/24/25
Review of Systems
-
History Source: Patient
A 12 point ROS was completed and negative except as noted: Yes
Constitutional: Reports No Symptoms
EENT: Reports No Symptoms
Respiratory: Reports No Symptoms
Cardiac: Reports No Symptoms
Abdomen/GI: Reports No Symptoms
: Reports No Symptoms
Musculoskeletal: Reports No Symptoms
Skin: Reports No Symptoms
Neurological: Reports No Symptoms
Endocrine: Reports No Symptoms
Hematologic/Lymphatic: Reports No Symptoms
Psych: Reports No Symptoms
Physical Exam
Vital Signs
Vital Signs
Temp Pulse Resp BP Pulse Ox
97.7 F 76 18 128/69 95
07/24/25 14:48 07/24/25 17:11 07/24/25 17:11 07/24/25 17:11 07/24/25 17:11
Physical Exam
General: Well Developed, Well Nourished and No Apparent Distress
HEENT: NormoCephalic, Moist mucous membranes and Atraumatic
Respiratory: Clear
Cardiac: S1/S2 and Regular Rhythm; No Murmur or Rub
GI: Soft, Non Tender, Non Distended and Normal Bowel Sounds; No Organomegaly
Rectal: Deferred by Provider
Musculoskeletal: No Clubbing, No Cyanosis and No Edema
Skin: No Rash
Neuro: Nonfocal/grossly intact
Data Reviewed
-
Lab Data: Labs Reviewed by me
Old Records: Reviewed
Impression/Plan
-
IMPRESSION:
PLAN:
# Agitation/aggression at night secondary to dementia
-Patient calm currently
-Continue donepezil
- Accepted [facility] after observation tonight
-Check EKG
-Started Seroquel
- PT, case management
- May require psychiatry
History of CVA/TIAs
Antiphospholipid syndrome
- Continue Coumadin
History of seizure
- Continue Keppra
Essential hypertension
- Continue amlodipine
Hyperlipidemia
- Continue statin
Depression
- Continue Lexapro
CKD 3B
Full code
DVT prophylaxis�Coumadin
Regular diet
[2025-07-24 17:32] LABS: Hematocrit 39.7 % (39.0-52.0); Hemoglobin 13.6 g/dL (13.0-18.0); Mean Corp Hgb Conc. 34.3 g/dL (33.0-37.0); Mean Corpuscular Volume 86.3 fL (80.0-94.0); Nucleated Red Blood Cells % 0 % (-); Platelet Count 68 10^3/uL (130-400); Red Cell Dist. Width 12.4 % (11.5-14.5)
[2025-07-24] MEDS: LIPITOR 20 MG PO (18:12)
[2025-07-24] MEDS: COUMADIN 7.5 MG PO (18:14)
[2025-07-24 18:18] LABS: ALT (SGPT) 26 U/L (0-50); AST (SGOT) 24 U/L (17-59); Albumin 3.8 g/dl (3.5-5.0); Alkaline Phosphatase 66 U/L (38-126); Blood Urea Nitrogen 22 mg/dl (9-20); Calcium 8.0 mg/dl (8.4-10.2); Carbon Dioxide 21 mmol/L (22-30); Chloride 112 mmol/L (98-107); Estimated Creatinine Clearance 56 ml/min; Glucose 119 mg/dl (70-99); Potassium 3.4 mmol/L (3.5-5.1); Sodium 140 mmol/L (135-145); Total Protein 6.1 g/dl (6.3-8.2); eGFR > 60.00
[2025-07-24 19:05] LABS: Urine Character Clear (Clear)
[2025-07-24 19:14] LABS: Urine Red Blood Cell 0-2 /HPF (0-2); Urine Squamous Cell 0-2 /LPF (Few)
[2025-07-24 20:06] VITALS: BP 124/72
[2025-07-24] MEDS: KEPPRA 500 MG PO (20:07)
[2025-07-24 21:51] VITALS: BP 120/76
[2025-07-24] MEDS: SEROQUEL 25 MG PO (21:53)
[2025-07-25 06:12] LABS: Hematocrit 36.0 % (39.0-52.0); Hemoglobin 12.5 g/dL (13.0-18.0); Mean Corp Hgb Conc. 34.7 g/dL (33.0-37.0); Mean Corpuscular Volume 87.4 fL (80.0-94.0); Platelet Count 62 10^3/uL (130-400); Red Cell Dist. Width 12.3 % (11.5-14.5)
[2025-07-25 07:02] LABS: ALT (SGPT) 22 U/L (0-50); AST (SGOT) 18 U/L (17-59); Albumin 3.4 g/dl (3.5-5.0); Alkaline Phosphatase 62 U/L (38-126); Blood Urea Nitrogen 20 mg/dl (9-20); Calcium 7.3 mg/dl (8.4-10.2); Carbon Dioxide 20 mmol/L (22-30); Chloride 114 mmol/L (98-107); Estimated Creatinine Clearance 56 ml/min; Glucose 86 mg/dl (70-99); Sodium 142 mmol/L (135-145); Total Protein 5.6 g/dl (6.3-8.2); eGFR > 60.00
[2025-07-25 07:11] LABS: Potassium 2.7 mmol/L (3.5-5.1)
[2025-07-25 07:42] LABS: Absolute Neutrophils -Man Diff 1.8 10^3/uL (1.4-6.5)
[2025-07-25 07:43] LABS: Normal RBC Morphology Yes; Platelets Checked Yes; Total Cells Counted 100
[2025-07-25 08:25] VITALS: BP 122/70
[2025-07-25] MEDS: KEPPRA 500 MG PO (08:39)
[2025-07-25] MEDS: ARICEPT 10 MG PO (08:40)
[2025-07-25] MEDS: NORVASC 5 MG PO (08:40)
[2025-07-25] MEDS: THERAGRAN 1 TABLET PO (08:40)
[2025-07-25] MEDS: LEXAPRO 20 MG PO (08:40)
[2025-07-25] MEDS: VITAMIN D3 (cholecalciferol) 50 MCG PO (08:40)
[2025-07-25] MEDS: KCL 40 MEQ PO (08:41)
[2025-07-25] MEDS: KCL 270 MEQ IV (08:41)
[2025-07-25 09:08] VITALS: BP 125/81; PULSE 78; O2SAT 97
--- NOTE | 2025-07-25 09:53 | W.PN.HOSP.TC ---
Today's Communication/Plan
-
d/c after therapy eval
Assessment / Plan
Assessment / Plan
pt is a 70 year old male
Agitation/aggression at night secondary to dementia--did not cooperate at [facility] so they sent him back to be placed again--await PT eval but plans are to go to [facility]--instructed pt to cooperate at the [facility]-Continue donepezil, Seroquel
pancytopenia--all appear chronic
hypokalemia--replete
History of CVA/TIAs--right hemiparesis
Antiphospholipid syndrome- Continue Coumadin
History of seizure- Continue Keppra
Essential hypertension- Continue amlodipine
Hyperlipidemia- Continue statin
Depression- Continue Lexapro
CKD 3B
code status--Full code
DVT proph�Coumadin
Anticipated Discharge: Today
Subjective/Interval History
-
Date of Service: July 25, 2025
pt without c/o--going to [facility]
Objective Data
-
Labs:
Laboratory Results
07/25/25
05:43
WBC 3.9 L
Hgb 12.5 L
Hct 36.0 L
Plt Count 62 L
Sodium 142
Potassium 2.7 L*
Chloride 114 H
Carbon Dioxide 20 L
BUN 20
Creatinine 1.2
Glucose 86
Calcium 7.3 L
Total Bilirubin 0.3
AST 18
ALT 22
Alkaline Phosphatase 62
Vital Signs:
max temp for 24 hours
07/24/25
09:04
Temp 98.2 F
Vital Signs
Temp Pulse Resp BP Pulse Ox
98 F 76 15 122/70 97
07/25/25 08:25 07/25/25 08:40 07/25/25 08:25 07/25/25 08:40 07/25/25 08:25
I&O
07/24/25 07/25/25 07/26/25
06:59 06:59 06:59
Intake Total 270 / 270
Balance 270 / 270
Review of Systems
-
All other systems: Reviewed and negative
Physical Exam
-
General: Well Developed, Well Nourished and No Apparent Distress
HEENT: Normocephalic and Atraumatic; Negative Oxygen
Respiratory: Clear to Auscultation; Negative Wheezes or Rhonchi
Cardiac: Regular Rhythm and S1/S2; Negative Murmur
GI: Soft, Nontender, Nondistended and Normal Bowel Sounds
Musculoskeletal: No Clubbing, No Cyanosis and No Edema
Neuro: Awake and Alert; Negative Nonfocal/Grossly Intact (right sided hemiparesis)
Psych: Calm
--- NOTE | 2025-07-25 10:19 | EDCM ---
Addendum entered by Erin Daniels 07/25/25 10:56:
Transport moved to 1pm so Potassium infusion will be complete, Panchito LINDO and Dr Quevedo made aware. I left another voicemail for his KELI Sainz updating her with transport time. She called me back, she will meet him at [place].
Addendum entered by Erin Daniels 07/25/25 10:25:
[facility], phone number [phone], fax [phone]
Original Note:
Authorization received for [facility], Auth number [id number], approved for 07/25 to 07/29, verbal updates to [phone].
[facility] for [facility], [id number]
Fla[facility] updated with auth number, requested early transport, [facility] arranged for 11am
Dr Quevedo and RN updated. I also left a voicemail for his KELI Sainz with transport time.
[2025-07-25 12:57] VITALS: BP 129/68
--- NOTE | 2025-07-25 15:38 | W.DCSUMMARY ---
Discharge Summary
Discharge Data
Date of Admission: 07/24/25
Date of Discharge: 07/25/25
-
Pending Results: No
Hospital Course
Primary care physician : Not listed
Principal Discharge diagnosis : Agitation and aggression secondary to dementia
Chronic Discharge diagnosis : Pancytopenia, hypokalemia, history of stroke, antiphospholipid antibody syndrome, history of seizures, essential hypertension, hyperlipidemia, depression, chronic kidney disease stage IIIb
Hospital Course : Patient was a 70-year-old male who was recently in the hospital from 07/18/25 to 07/22/2025 and was sent to [facility] for rehab. Patient is presenting back from rehab since he was not participating, was aggressive at night, cursing
at the staff and he was sent back to get a different retirement facility placement. Patient was brought in as observation.
Problem #1: Agitation and aggression secondary to dementia. The patient did not cooperate at [facility]. He has now been accepted to [facility]. Patient is stable for discharge at this time.
Problem #2: All other medical issues. These include Pancytopenia, hypokalemia, history of stroke, antiphospholipid antibody syndrome, history of seizures, essential hypertension, hyperlipidemia, depression, chronic kidney disease stage IIIb. These
medical issues were stable during his hospitalization. Medications were continued as able. In regards to the hypokalemia, this was repleted prior to discharge.
Patient is stable for discharge to [facility] at this time. If there are any questions regarding this dictation or his hospital stay, please do not hesitate to call. Our office number is [phone].
Discharge Plan
-
Patient Disposition: Senior Living/SNF
Discharge Diagnosis/Procedures: agitation due to dementia, pancytopenia, hypokalemia, history of stroke, antiphospholipid syndrome, seizure history, essential hypertension, hyperlipidemia, depression, chronic kidney disease stage 3B
Condition: Good
Diet: As tolerated and Regular
Activity: As tolerated
Driving Restrictions: No driving
Bathing Restrictions: None
Referrals:
UNKNOWN - PT DOES,NOT KNOW [Family Provider] - in less than 1 week
Prescriptions:
Continued
atorvastatin 20 mg Tablet
20 mg PO QPM
donepezil 10 mg Tablet
10 mg PO DAILY
therapeutic multivitamin Tablet
1 tab PO DAILY
amlodipine 5 mg Tablet
10 mg PO DAILY
escitalopram oxalate 20 mg Tablet
20 mg PO DAILY
cholecalciferol (vitamin D3) [Vitamin D3] 50 mcg (2,000 unit) Tablet
50 mcg PO DAILY
levetiracetam 500 mg Tablet
500 mg PO BID Qty: 60 0RF
warfarin [Jantoven] 7.5 mg Tablet
7.5 mg PO QPM Qty: 5 0RF
acetaminophen [Tylenol] 325 mg Tablet
650 mg PO Q4HPRN PRN (Reason: mild pain)
magnesium hydroxide [Milk of Magnesia] 400 mg/5 mL Suspension
2,400 mg PO [id number] PRN (Reason: if no bm by 3rd day give on day 4)
bisacodyl [Dulcolax (bisacodyl)] 10 mg Suppository
10 mg MA DAILYPRN PRN (Reason: if no bm aftr mom give on day 5)
Fleet Enema 19-7 gram/118 mL Enema
118 ml MA DAILYPRN PRN (Reason: if no bm aftr dulcoalx give on day 6)
Discharge Orders:
Discharge Patient (As Directed); Ordered 07/25/25
Ordered By: Ariella Quevedo
Discharge Date and Time
Discharge Date/Time: 07/25/25 13:33
Print Language: CHILEAN
== END 2025-07-25 13:33 ==
LOC: ED 17:57
PROVIDERS: Physician Assistant; ADMITTING PHYSICIAN Hospitalist; ATTENDING PHYSICIAN Internal Medicine; EMERGENCY PHYSICIAN Emergency Medicine
DX: R53.1 Weakness (principal); F01.53 Vascular dementia, unspecified severity, with mood disturbance; F01.511 Vascular dementia, unspecified severity, with agitation; I69.351 Hemiplegia and hemiparesis following cerebral infarction affecting right dominant side; D68.61 Antiphospholipid syndrome; N18.32 Chronic kidney disease, stage 3b; I12.9 Hypertensive chronic kidney disease with stage 1 through stage 4 chronic kidney disease, or unspecified chronic kidney disease; E78.5 Hyperlipidemia, unspecified; F32.A Depression, unspecified; D61.818 Other pancytopenia; E87.6 Hypokalemia; Z88.0 Allergy status to penicillin; Z79.01 Long term (current) use of anticoagulants; Z79.899 Other long term (current) drug therapy; Z91.199 Patient's noncompliance with other medical treatment and regimen due to unspecified reason
CPT/HCPCS: 80053; 81003; 81015; 85025; 87070; 87077; 87086

== ENCOUNTER 2025-08-20 03:31 | Inpatient (IN) | payer OTHER, SELFPAY ==
[2025-08-19 23:00] VITALS: BP 141/75
[2025-08-19 23:05] VITALS: BMI 21.1
--- NOTE | 2025-08-19 23:40 | ED.GENMED ---
Addendum entered and electronically signed by Naveed Banda DO 08/20/25 01:33:
Medical decision making note on this chart is incorrect. This was placed on the wrong chart.
The appropriate medical decision making statement is as follows
Patient presents with generalized weakness, inability to walk and increased agitation. Workup here reveals a urinalysis which is highly suggestive of a urinary tract infection given greater than 100 WBCs per high-power field, positive leukocyte
esterase. Patient's labs also show that he has an elevated BUN and creatinine above his baseline suggestive of dehydration. Will start IV fluids and IV antibiotics. Patient will require hospitalization
Original Note:
History of Present Illness
General
Chief Complaint: Weakness
Source: ambulance crew
Time Seen by Provider: 08/19/25 23:26
History of Present Illness
History of Present Illness:
Per medics patient has been more agitated than baseline and not ambulating at his baseline. He typically ambulates with a walker. Family feels that he is weaker than normal. Patient has been hospitalized a couple times here at [place] over the
past month. First admission was for a syncopal episode. Workup did not reveal any significant abnormality. He was discharged to [facility]. He was sent back due to agitation and then discharged to [facility]. Unclear when he was discharged
back to home. Patient offers no complaints here himself. He does have a history of vascular dementia however. I did call the patient's son, Rodrick but the call went to voicemtil.
Phy Exam
Physical Exam
Physical Exam:
General: Awake, Alert, Oriented X1. No acute distress but appears chronically ill
Vitals: unremarkable
Head: Atraumatic
Eyes: Pupils equal, EOMI
Throat: Airway intact, no exudates
Neck: Trachea midline
Lungs: Clear and equal b/l
Heart: Regular rate, no murmurs
Abd: Soft, Nontender, No pulsatile mass
Neuro: Right-sided weakness which is baseline
Skin: Warm, dry, no rash
Extremities: pulses equal b/l, no edema
Course
Orders/Labs/Results
Orders:
Orders
08/19/25 23:18
Complete Blood Count/With Diff Urgent
Comprehensive Metabolic Panel Urgent
08/19/25 23:26
EKG [Electrocardiogram (*1)] Urgent
Reason for Study: Fatigue / Weakness
08/19/25 23:27
EKG- Treatment ONCE
08/19/25 23:34
PTT Urgent
Prothrombin Time Urgent
08/19/25 23:39
CT Head W/o Iv Contrast Urgent
Comment:
Reason For Exam: altered mental status
08/19/25 23:48
Urinalysis Reflex To Culture Urgent
Date Specimen was Collected: 08/19/25
Time Specimen was Collected: 23:43
Urine Microscopic Reflex Cult Urgent
Urine Culture Urgent
DUC Source: U
Specimen Description:
Date Specimen was Collected: 08/19/25
Time Specimen was Collected: 23:43
08/20/25 00:36
Lorazepam [Ativan] 1 mg IV NOW STA
08/20/25 01:07
CefTRIAXone [Rocephin] 1,000 mg IV NOW STA
08/20/25 02:00
0.9% Sodium Chloride 1000 ml [Nss] 1,000 ml Potassium Chloride [KCl] 20 meq IV 150 mls/hr
Abnormal Lab Results
08/19/25 08/19/25 08/19/25
23:18 23:34 23:48
RBC 3.69 L 10^6/uL
(4.70-6.10)
Hgb 10.6 L g/dL
(13.0-18.0)
Hct 31.0 L %
(39.0-52.0)
Plt Count 93 L 10^3/uL
(130-400)
MPV 12.7 H fL
(7.4-10.4)
Abs Immat Gran (auto) 0.2 H 10^3/uL
(0-0.05)
Absolute Neuts (auto) 7.4 H 10^3/uL
(1.4-6.5)
Absolute Lymphs (auto) 0.6 L 10^3/uL
(1.2-3.4)
Absolute Monos (auto) 0.9 H 10^3/uL
(0.1-0.6)
Immature Gran % 1.9 H %
(0-0.5)
Neutrophils % 81.2 H %
(42.2-75.2)
Lymphocytes % 6.2 L %
(20.5-51.1)
Monocytes % 9.7 H %
(1.7-9.3)
PT 36.6 H Sec
(11.4-14.6)
APTT 81.7 H Sec
(23.4-35.0)
Sodium 129 L mmol/L
(135-145)
Potassium 3.3 L mmol/L
(3.5-5.1)
BUN 45 H mg/dl
(9-20)
Creatinine 2.1 H mg/dL
(0.7-1.3)
Glucose 125 H mg/dl
(70-99)
Calcium 8.3 L mg/dl
(8.4-10.2)
ALT 54 H U/L
(0-50)
Alkaline Phosphatase 177 H U/L
(38-126)
Albumin 3.4 L g/dl
(3.5-5.0)
Ur Occult Blood Reflex 4+ A
(Negative)
Leukocyte Esterase Rfl 3+ A
(Negative)
Urine WBC (Reflex) >100 A /HPF
(0-5)
Urine Bacteria (Reflex) Many A
(Negative)
Urine Albumin (Reflex) 3+ A
(Neg - Trace)
08/19/25 23:18
08/19/25 23:18
Vital Signs
Initial and Last Documented VS:
Initial Vital Signs
BP
141/75
08/19/25 23:00
Last Documented Vital Signs
Temp Pulse Resp BP Pulse Ox
98.7 F 90 16 135/104 97
08/19/25 23:06 08/20/25 00:30 08/20/25 00:30 08/20/25 00:22 08/20/25 00:15
MDM/Problems Addressed
Differential Diagnosis Includes:
Pseudoaneurysm, postoperative bleeding,
MDM/Problems Addressed:
Patient presents because his right groin dressing was red after having an ablation performed today. No pseudoaneurysm or big hematoma noted on exam. Dressing change. Minimal staining of the new dressing. Sandbags placed for 30 minutes. Patient
stable for discharge home. Follow-up with cardiology as scheduled.
*Pulse Oximetry
SaO2: 96
Oxygen Mode of Delivery: Room air
Patient hypoxic: no
*EKG
Interpreted by ED Provider?: Yes
Heart Rate: 90
Rate: normal
Rhythm: sinus
[place]: normal axis
Interval: normal interval
QRS Pattern: normal QRS
Ischemia: no ischemia
*Contact Lens Flashing Puncher Interpretation
Rate: normal
Interpretation: normal
Rhythm: sinus
*Critical Care Note
Total Time (30-74mins, 75-104mins- exclusive of procedures): Not Applicable
ED Attending Note
-
Portions of this chart may have been created with voice recognition software.� Occasional wrong word or��sound alike� substitutions may have occurred due to the inherent limitations of voice recognition software.
Discharge Plan
Departure
Patient Disposition: Admit
Date of Disposition: 08/20/25
Time of Disposition: 01:11
Admit to: Med/Surg
Presentation/result/management discussed w/ accepting MD/DO: Hospitalist
Condition: Fair
Discharge Problem:
Acute UTI, Dehydration
Prescriptions:
No Action
atorvastatin 20 mg Tablet
20 mg PO QPM
donepezil 10 mg Tablet
10 mg PO DAILY
therapeutic multivitamin Tablet
1 tab PO DAILY
amlodipine 5 mg Tablet
10 mg PO DAILY
escitalopram oxalate 20 mg Tablet
20 mg PO DAILY
cholecalciferol (vitamin D3) [Vitamin D3] 50 mcg (2,000 unit) Tablet
50 mcg PO DAILY
levetiracetam 500 mg Tablet
500 mg PO BID Qty: 60 0RF
warfarin [Jantoven] 7.5 mg Tablet
7.5 mg PO QPM Qty: 5 0RF
acetaminophen [Tylenol] 325 mg Tablet
650 mg PO Q4HPRN PRN (Reason: mild pain)
magnesium hydroxide [Milk of Magnesia] 400 mg/5 mL Suspension
2,400 mg PO [id number] PRN (Reason: if no bm by 3rd day give on day 4)
bisacodyl [Dulcolax (bisacodyl)] 10 mg Suppository
10 mg IN DAILYPRN PRN (Reason: if no bm aftr mom give on day 5)
Fleet Enema 19-7 gram/118 mL Enema
118 ml IN DAILYPRN PRN (Reason: if no bm aftr dulcoalx give on day 6)
Referrals:
UNKNOWN - PT DOES,NOT KNOW [Family Provider]
Interventions
Interventions:
*Risk Screen - Suicide Last Done: 08/19/25 23:08
*General Assessment Last Done: 08/19/25 23:08
*Neglect/Abuse Screening Last Done: 08/19/25 23:08
*ED- Fall Risk Assessment Last Done: 08/19/25 23:08
*ED COVID-19 Vaccine History Last Done: 08/19/25 23:08
*ED Influenza Vaccine History Last Done: 08/19/25 23:08
ED- Cardiac Assessment Last Done: 08/19/25 23:10
ED- Neurological Assessment Last Done: 08/19/25 23:10
ED- Pulmonary Assessment Last Done: 08/19/25 23:10
Discharge Date and Time
Print Language: DIVEHI
[2025-08-19 23:52] LABS: Hematocrit 31.0 % (39.0-52.0); Hemoglobin 10.6 g/dL (13.0-18.0); Mean Corp Hgb Conc. 34.2 g/dL (33.0-37.0); Mean Corpuscular Volume 84.0 fL (80.0-94.0); Nucleated Red Blood Cells % 0 % (-); Platelet Count 93 10^3/uL (130-400); Red Cell Dist. Width 13.0 % (11.5-14.5)
[2025-08-19 23:58] LABS: ALT (SGPT) 54 U/L (0-50); AST (SGOT) 52 U/L (17-59); Albumin 3.4 g/dl (3.5-5.0); Alkaline Phosphatase 177 U/L (38-126); Blood Urea Nitrogen 45 mg/dl (9-20); Calcium 8.3 mg/dl (8.4-10.2); Carbon Dioxide 22 mmol/L (22-30); Chloride 101 mmol/L (98-107); Estimated Creatinine Clearance 32 ml/min; Glucose 125 mg/dl (70-99); Potassium 3.3 mmol/L (3.5-5.1); Sodium 129 mmol/L (135-145); Total Protein 7.4 g/dl (6.3-8.2); eGFR 33.24
[2025-08-20] VITALS (10 sets, daily range): BP systolic 124–184; BP diastolic 70–104; PULSE 84; O2SAT 97–99; BMI 20.3
[2025-08-20 00:16] LABS: INR 3.74; PT 36.6 Sec (11.4-14.6)
[2025-08-20 00:17] LABS: APTT 81.7 Sec (23.4-35.0)
[2025-08-20 00:21] LABS: Urine Character Cloudy (Clear)
[2025-08-20] MEDS: ATIVAN 1 MG IV (00:40)
[2025-08-20 00:55] LABS: Urine Squamous Cell SEEN /LPF (Few); Urine White Cell >100 /HPF (0-5)
[2025-08-20] MEDS: ROCEPHIN 1000 MG IV (01:35)
[2025-08-20] MEDS: STERILE WATER FOR INJECTION 10 ML IV (01:36)
[2025-08-20] MEDS: KCL 1010 MEQ IV (02:00)
--- NOTE | 2025-08-20 03:24 | HPS.HSE ---
Family Physician
-
Family Physician: NOT KNOW UNKNOWN - PT DOES
Chief Complaint
-
Increased agitation / weakness
History of Present Illness
Patient is a 70y M with PMH significant for senile dementia with behavioral disturbance, hypertension and CKD who presents to ED for evaluation of increased agitation (combative with family members prior to presentation), increased confusion and
reported weakness. Patient with multiple recent hospitalizations for weakness, agitation, etc. Patient was discharged recently to [facility] and then to [facility]. He is apparently now back at home. Patient denies any pain at present. He
states 'that what they say' when asked if he has been more weak of late. Unable to reach family by phone for any additional history.
Medical History
Past Medical History
Past Medical History: Reports Other
Additional Past Medical History:
Hypertension
CVA
CKD stage III
History of mononucleosis
Antiphospholipid antibody syndrome
Anticardiolipin antibody syndrome
A-fib
Hyperlipidemia
Thrombocytopenia
Retinal artery occlusion
Past Surgical History: Reports Other
Additional Past Surgical History:
[place] Tooth Extraction
Social History
Tobacco: Non-smoker
Alcohol: None
Drug: None
Personal: Single
Living: With Family
Family History
Family History: Not pertinent
Allergies / Home Medications
Allergies reflects when Allergies were last updated in [employer].
Home Medications with original date entered in [employer]
Allergy/Medication List:
Allergies
Allergy/AdvReac Type Severity Reaction Status Date / Time
Penicillins Allergy Rash Verified 08/19/25 23:04
Home Medications
amlodipine 5 mg tablet 10 mg PO DAILY Blood Pressure 01/26/25
atorvastatin 20 mg tablet 20 mg PO QPM High Cholesterol 01/26/25
cholecalciferol (vitamin D3) 50 mcg (2,000 unit) tablet (Vitamin D3) 50 mcg PO DAILY Supplement 01/26/25
donepezil 10 mg tablet 10 mg PO DAILY Mental Health/Anxiety 01/26/25
escitalopram oxalate 20 mg tablet 20 mg PO DAILY Mental Health/Anxiety 01/26/25
therapeutic multivitamin 1 tab PO DAILY Supplement 01/26/25
levetiracetam 500 mg tablet 500 mg PO BID #60 tabs 01/29/25
donepezil 10 mg tablet 10 mg PO DAILY 08/20/25
warfarin 5 mg tablet 5 mg PO DAILY 08/20/25
Review of Systems
-
Unable to obtain full review of systems at this time due to: Dementia
History Source: Patient
Constitutional: Denies Fever
Respiratory: Denies Trouble Breathing
Cardiac: Denies Chest Pain
Abdomen/GI: Denies Abdominal Pain
Physical Exam
Vital Signs
Vital Signs
Temp Pulse Resp BP Pulse Ox
98.7 F 78 16 148/89 99
08/19/25 23:06 08/20/25 02:03 08/20/25 02:03 08/20/25 02:03 08/20/25 01:45
Physical Exam
General: Other (70y M in no apparent distress. Awake and answers questions / follows commands.)
HEENT: Other (Dry MM. Neck supple.)
Respiratory: Clear; No Wheezes, Rales or Rhonchi
Cardiac: S1/S2 and Regular Rhythm; No Murmur
GI: Soft, Non Tender, Normal Bowel Sounds and Other (Softly distended. Not tender. )
Genito-urinary: Other (No CVAT or suprapubic fullness.)
Musculoskeletal: No Clubbing, No Cyanosis and No Edema
Neuro: Awake, Alert and Other (R weakness - apparently chronic from prior CVA.); No Oriented
Laboratory Results
-
08/19/25 23:18
08/19/25 23:18
Laboratory Results
PT 36.6 Sec (11.4-14.6) H 11/03/25 23:34
INR 3.74 08/19/25 23:34
APTT 81.7 Sec (23.4-35.0) H 08/19/25 23:34
Total Bilirubin 0.6 mg/dl (0.2-1.3) 08/19/25 23:18
AST 52 U/L (17-59) 08/19/25 23:18
ALT 54 U/L (0-50) H 08/19/25 23:18
Alkaline Phosphatase 177 U/L (38-126) H 08/19/25 23:18
Impression/Plan
-
A/P: Patient is a 70y M with PMH significant for dementia, hypertension, CKD who presents to ED for evaluation of increased weakness and agitation.
Senile Dementia with Behavioral Disturbance
- Admit for further evaluation and treatment.
- Increased agitation at home per report - does not appear to be on Seroquel which was started last admission here.
- Will restart.
- Continue other mood stabilizing medications - follow for any changes.
- ? acute factors including hyponatremia, infection, anemia contributing to presentation.
Suspected Enterococcus UTI
- UA with innumerable WBCs and many bacteria. Difficult to assess symptoms given dementia.
- UCx done 07/24 with 80k CFU of Enterococcus. Allergic to PCN - will cover with levofloxacin for now.
- Follow-up repeat culture data.
- Follow for clinical changes.
ADOLFO on CKD III
- SCr = 2.1 compared to known baseline of 1.2.
- IVF support and follow for improvement in renal function.
- Check renal US.
- Bladder scan protocol and straight cath / Benjamin if any evidence of retention.
Hyponatremia
Mild Hypokalemia
- ? etiology. This is a new finding.
- Check urine studies.
- IVFs for now as patient appears hypovolemic by exam.
- Follow for changes in lytes and adjust treatment as needed.
Normocytic Anemia
- Hgb 10.6 compared to recent baseline around 13. No obvious evidence of bleeding.
- Has supratherapeutic INR on Coumadin (see below).
- Heme test stools. Check iron studies. Follow clinically for signs of bleeding.
- Follow H&H and transfuse if needed.
AntiPhospholipid Abs Syndrome
- On Coumadin with INR today = 3.74.
- Hold Coumadin today. Follow daily INR and dose Coumadin as appropriate.
History of CVA
Seizure Disorder
- Stable. No new evident focal deficits. No seizure activity.
- Continue current med regimen.
DVT Prophylaxis: On Coumadin
Code Status: Full
--- NOTE | 2025-08-20 05:50 | PTCARENOTE ---
Pt arrived to unit approx 0500 08/20/25. Pt is NSR on tele. Pt was incontinent of urine upon arrival and was cleaned. Pt AAOx1-2, confused, forgetful, tired. Pt oriented to unit according to baseline. Bed locked, bed alarm on, bed in lowest
position, call davis in reach.
[2025-08-20 08:01] LABS: INR 4.15; PT 39.7 Sec (11.4-14.6)
[2025-08-20 08:07] LABS: Hematocrit 31.9 % (39.0-52.0); Hemoglobin 10.4 g/dL (13.0-18.0); Mean Corp Hgb Conc. 32.6 g/dL (33.0-37.0); Mean Corpuscular Volume 87.6 fL (80.0-94.0); Platelet Count 82 10^3/uL (130-400); Red Cell Dist. Width 13.1 % (11.5-14.5)
--- NOTE | 2025-08-20 08:31 | W.PN.HOSP.TC ---
Today's Communication/Plan
-
Continue antibiotic
Assessment / Plan
Assessment / Plan
Impression:
Patient is a 70y M with PMH significant for senile dementia with behavioral disturbance, hypertension and CKD who presents to ED for evaluation of increased agitation (combative with family members prior to presentation), increased confusion and
reported weakness. Patient with multiple recent hospitalizations for weakness, agitation, etc. Patient was discharged recently to [facility] and then to [facility]. He is apparently now back at home. Patient denies any pain at present.
Patient admitted to the hospital, treated with antibiotic for suspected UTI.
Assessment/plan:
Senile Dementia with Behavioral Disturbance
- Admit for further evaluation and treatment.
- Increased agitation at home per report - does not appear to be on Seroquel which was started last admission here.
- Seroquel restarted
- Continue other mood stabilizing medications - follow for any changes.
- Consider psych consult
Suspected Enterococcus UTI
- UA with innumerable WBCs and many bacteria. Difficult to assess symptoms given dementia.
- UCx done 07/24 with 80k CFU of Enterococcus. Allergic to PCN - will cover with levofloxacin for now.
- Follow-up repeat culture data.
- Follow for clinical changes.
ADOLFO on CKD III
- SCr = 2.1 compared to known baseline of 1.2.
- IVF support and follow for improvement in renal function.
- Renal US shows:
Moderate left renal collecting system dilatation with layering debris.
Trabeculated urinary bladder with layering debris.
Small nonobstructing left renal calculus.
Two simple left renal cysts.
- Bladder scan protocol and straight cath / Benjamin if any evidence of retention.
08/20
Creatinine improved
Hyponatremia
Mild Hypokalemia
Resolved.
Normocytic Anemia
- Hgb 10.6 compared to recent baseline around 13. No obvious evidence of bleeding.
- Has supratherapeutic INR on Coumadin (see below).
- Heme test stools. Check iron studies. Follow clinically for signs of bleeding.
- Follow H&H and transfuse if needed.
Antiphospholipid Antibodies Syndrome/supratherapeutic INR
- On Coumadin with INR supratherapeutic
- Hold Coumadin.
History of CVA
Seizure Disorder
- Stable. No new evident focal deficits. No seizure activity.
- Continue current med regimen.
CODE STATUS: Full code
DVT prophylaxis: coumadin on hold for elevated INR.
Diet: Regular diet
Disposition: Continue antibiotic
Total time spent on today's encounter was 55 minutes which included time spent in counseling the patient/family regarding diagnosis and treatment plan as listed above, goals of care, and symptom management. Case was discussed with nursing staff,
specialists, and care coordinators/case management. All labs and imaging personally reviewed by me. Remainder the time spent in detailed review of previous records, lab data, imaging, and other medical provider documentation.
Anticipated Discharge: 24 - 48 hours
Subjective/Interval History
-
Date of Service: August 20, 2025
Patient seen and examined at bedside, awake but not fully oriented.
Objective Data
-
Labs:
Laboratory Results
08/19/25 08/19/25 08/20/25
23:18 23:34 07:03
WBC 9.1 6.3
Hgb 10.6 L 10.4 L
Hct 31.0 L 31.9 L
Plt Count 93 L 82 L
PT 36.6 H 39.7 H
INR 3.74 4.15
APTT 81.7 H
Sodium 129 L Pending
Potassium 3.3 L Pending
Chloride 101 Pending
Carbon Dioxide 22 Pending
BUN 45 H Pending
Creatinine 2.1 H Pending
Glucose 125 H Pending
Calcium 8.3 L Pending
Total Bilirubin 0.6
AST 52
ALT 54 H
Alkaline Phosphatase 177 H
Vital Signs:
Vital Signs
Temp Pulse Resp BP Pulse Ox
98.4 F 76 12 137/80 98
08/20/25 07:00 08/20/25 07:00 08/20/25 07:00 08/20/25 07:00 08/20/25 07:00
I&O
08/19/25 08/20/25 08/21/25
06:59 06:59 06:59
Output Total 350 / 350
Balance -350 / -350
Physical Exam
-
General: Well Developed
HEENT: Normocephalic, Atraumatic, Moist Mucous Membranes, No Ptosis, PERRLA and Nose Appears Normal
Respiratory: Rales and Rhonchi
Cardiac: Regular Rhythm and S1/S2
Breast: Deferred by me
GI: Soft, Nontender, Nondistended and Normal Bowel Sounds
Genito-urinary: No Costovertebral Tender
Musculoskeletal: No Clubbing, No Cyanosis and No Edema
Skin: Warm
Neuro: Awake
Psych: Calm and Confused
Data Reviewed
-
Diagnostic Radiology: Image personally visualized and interpreted and Report Reviewed by me
CT Scan: Image personally visualized and interpreted and Report Reviewed by me
Ultrasound: Image personally visualized and interpreted and Report Reviewed by me
MRI: Image personally visualized and interpreted and Report Reviewed by me
Medical Tests (Nuc Med, Echo etc): Image personally visualized and interpreted and Report Reviewed by me
Labs: Labs Reviewed by me
Old Records: Reviewed
[2025-08-20 09:28] LABS: Blood Urea Nitrogen 39 mg/dl (9-20); Calcium 7.8 mg/dl (8.4-10.2); Carbon Dioxide 21 mmol/L (22-30); Chloride 107 mmol/L (98-107); Estimated Creatinine Clearance 34 ml/min; Glucose 105 mg/dl (70-99); Iron 26 ug/dl (49-181); Magnesium 1.8 mg/dl (1.6-2.3); Potassium 3.7 mmol/L (3.5-5.1); eGFR 37.48
[2025-08-20 09:36] LABS: Total Iron Binding Capacity 207 ug/dl (261-462)
[2025-08-20 09:53] LABS: Sodium 135 mmol/L (135-145)
[2025-08-20] MEDS: LEXAPRO 20 MG PO (10:13)
[2025-08-20] MEDS: ARICEPT 10 MG PO (10:13)
[2025-08-20] MEDS: KEPPRA 500 MG PO ×2 (10:13→20:54)
[2025-08-20] MEDS: LR 1000 IV ×2 (10:27→23:53)
[2025-08-20] MEDS: LEVAQUIN 50 IV (12:03)
[2025-08-20] MEDS: LR IV (12:42)
[2025-08-20] MEDS: LIPITOR PO (16:29)
[2025-08-20] MEDS: SEROQUEL 25 MG PO (20:54)
[2025-08-20] MEDS: SEROQUEL 12.5 MG PO (22:11)
--- NOTE | 2025-08-20 23:30 | PTCARENOTE ---
Pt transferred to [facility]. AAOx2-3. Pt lethargic and transferred in bed IV fluids LR running at 100ml/hr. No c/o pain. Bed alarm plugged in, call davis within reach.
--- NOTE | 2025-08-20 23:42 | PTCARENOTE ---
Pt became verbally aggressive and disturbing this evening, using curse words and escalating behavior that cause roommate to become agitated as well. Neighboring rooms complained of the disruption. Pt was AAOx1-2 and had minimal effect with PRN
medication for agitation. Pt was transferred to a single room within the same unit for safety and to reduce disruption throughout the unit. Pt was cooperative with the transfer and report was given to the receiving RN.
[2025-08-21 00:09] VITALS: BP 150/80
--- NOTE | 2025-08-21 03:00 | PTCARENOTE ---
Pt refused 0300 VS. Pt began getting agitated amd began using foul language towards tech. Pt resting in bed. No s/s of respiratory distress noted. Pt not excessively warm to touch that would warrant fever. No c/o pain. Safety measures in place, call
davis within reach.
[2025-08-21 05:58] VITALS: BMI 20.4
[2025-08-21 06:00] VITALS: BMI 20.4
[2025-08-21 07:00] VITALS: BP 158/92
[2025-08-21] MEDS: LR 1000 IV (07:58)
[2025-08-21] MEDS: KEPPRA 500 MG PO ×2 (07:59→20:31)
[2025-08-21] MEDS: ARICEPT 10 MG PO (07:59)
[2025-08-21] MEDS: LEXAPRO 20 MG PO (07:59)
[2025-08-21] MEDS: LEVAQUIN 50 IV (07:59)
[2025-08-21 09:06] LABS: Hematocrit 29.5 % (39.0-52.0); Hemoglobin 10.2 g/dL (13.0-18.0); Mean Corp Hgb Conc. 34.6 g/dL (33.0-37.0); Mean Corpuscular Volume 86.0 fL (80.0-94.0); Platelet Count 84 10^3/uL (130-400); Red Cell Dist. Width 13.1 % (11.5-14.5)
[2025-08-21 09:33] LABS: INR 3.46; PT 35.1 Sec (11.4-14.6)
--- NOTE | 2025-08-21 10:27 | PTCARENOTE ---
Pt asked for help with breakfast- after put a sxoop in his mouth he spit it out onto himself and asked me to 'get the fuck out of here' He is emotionally labile, angers quickly, uses profanity , yells out inappropriately . Difficult to redirect,
does not follow commands. Incont care provided along with turning and repositioning. Has visitor at present.
[2025-08-21 10:35] LABS: Blood Urea Nitrogen 29 mg/dl (9-20); Calcium 7.8 mg/dl (8.4-10.2); Carbon Dioxide 22 mmol/L (22-30); Chloride 108 mmol/L (98-107); Estimated Creatinine Clearance 38 ml/min; Glucose 107 mg/dl (70-99); Potassium 3.7 mmol/L (3.5-5.1); Sodium 138 mmol/L (135-145); eGFR 42.83
[2025-08-21 11:00] VITALS: BP 131/78
--- NOTE | 2025-08-21 12:56 | CM ---
Addendum entered by Yulia Tobin 08/21/25 13:16:
Patient was scheduled to have [facility] prior to hospitalization.
PCP Lynsey Calzada, [facility].
Original Note:
CM reviewed chart, phone call to medical POA, Megan, to complete IA.
Patient recent d/c from [facility] to home with 24 hr caregivers.
Patient resides with his son, Rodrick (financial POA) and grandson.
Prior to hospitalization, Megan reports patient was independent with ambulation, since hospitalization and rehab stay has been assist x2.
Megan ordered hospital bed, also have stair glide in the home.
CM discussed therapy recommendations of SNF- patient currently max assist x2.
Patient seen bedside, yelling out often, however agreeable to rehab.
VM left for ANKITA Guzman, to discuss referrals for SNF.
CM will continue to follow.
Plan; SNF pending accepting facility, will need auth
--- NOTE | 2025-08-21 13:37 | W.PN.HOSP.TC ---
Today's Communication/Plan
-
Continue antibiotic, final culture so far negative, discharge to SNF once bed available.
Assessment / Plan
Assessment / Plan
Impression:
Patient is a 70y M with PMH significant for senile dementia with behavioral disturbance, hypertension and CKD who presents to ED for evaluation of increased agitation (combative with family members prior to presentation), increased confusion and
reported weakness. Patient with multiple recent hospitalizations for weakness, agitation, etc. Patient was discharged recently to [facility] and then to [facility]. He is apparently now back at home. Patient denies any pain at present.
Patient admitted to the hospital, treated with antibiotic for suspected UTI.
Assessment/plan:
Senile Dementia with Behavioral Disturbance
- Admit for further evaluation and treatment.
- Increased agitation at home per report - does not appear to be on Seroquel which was started last admission here.
- Seroquel restarted
- Continue other mood stabilizing medications - follow for any changes.
- Status slightly improved
Suspected Enterococcus UTI
- UA with innumerable WBCs and many bacteria. Difficult to assess symptoms given dementia.
- UCx done 07/24 with 80k CFU of Enterococcus. Allergic to PCN - will cover with levofloxacin for now.
- Follow-up repeat culture data. Negative so far
- Follow for clinical changes.
ADOLFO on CKD III
- SCr = 2.1 compared to known baseline of 1.2.
- IVF support and follow for improvement in renal function.
- Renal US shows:
Moderate left renal collecting system dilatation with layering debris.
Trabeculated urinary bladder with layering debris.
Small nonobstructing left renal calculus.
Two simple left renal cysts.
- Bladder scan protocol and straight cath / Benjamin if any evidence of retention.
08/20
Creatinine improved
08/21
Creatinine continue to improve.
Hyponatremia
Mild Hypokalemia
Resolved.
Normocytic Anemia
- Hgb 10.6 compared to recent baseline around 13. No obvious evidence of bleeding.
- Has supratherapeutic INR on Coumadin (see below).
- Heme test stools. Check iron studies. Follow clinically for signs of bleeding.
- Follow H&H and transfuse if needed.
Antiphospholipid Antibodies Syndrome/supratherapeutic INR
- On Coumadin with INR supratherapeutic
- Hold Coumadin.
History of CVA
Seizure Disorder
- Stable. No new evident focal deficits. No seizure activity.
- Continue current med regimen.
CODE STATUS: Full code
DVT prophylaxis: coumadin on hold for elevated INR.
Diet: Regular diet
Communication: Discussed with praful Mensah in the phone, discussed with medical power of police commissioner ANNA at bedside.
Disposition: Continue antibiotic, final culture so far negative, discharge to SNF once bed available.
Total time spent on today's encounter was 55 minutes which included time spent in counseling the patient/family regarding diagnosis and treatment plan as listed above, goals of care, and symptom management. Case was discussed with nursing staff,
specialists, and care coordinators/case management. All labs and imaging personally reviewed by me. Remainder the time spent in detailed review of previous records, lab data, imaging, and other medical provider documentation.
Anticipated Discharge: Within 24 hours
Subjective/Interval History
-
Date of Service: August 21, 2025
Patient seen and examined at bedside, looks tired and confused but other denies any chest pain or shortness of breath.
Objective Data
-
Labs:
Laboratory Results
08/21/25
08:44
WBC 4.3 L
Hgb 10.2 L
Hct 29.5 L
Plt Count 84 L
PT 35.1 H
INR 3.46
Sodium 138
Potassium 3.7
Chloride 108 H
Carbon Dioxide 22
BUN 29 H
Creatinine 1.7 H
Glucose 107 H
Calcium 7.8 L
Vital Signs:
Vital Signs
Temp Pulse Resp BP Pulse Ox
98.2 F 88 18 131/78 97
08/21/25 11:00 08/21/25 11:00 08/21/25 11:00 08/21/25 11:00 08/21/25 11:00
I&O
08/20/25 08/21/25 08/22/25
06:59 06:59 06:59
Intake Total 1919
Output Total 350 / 350 180 / 180
Balance -350 / -350 1740 / 1740
Physical Exam
-
General: Well Developed
HEENT: Normocephalic, Atraumatic, Moist Mucous Membranes, No Ptosis, PERRLA and Nose Appears Normal
Respiratory: Rales and Rhonchi
Cardiac: Regular Rhythm and S1/S2
Breast: Deferred by me
GI: Soft, Nontender, Nondistended and Normal Bowel Sounds
Genito-urinary: No Costovertebral Tender
Musculoskeletal: No Clubbing, No Cyanosis and No Edema
Skin: Warm
Neuro: Awake
Psych: Calm and Confused
[2025-08-21 15:00] VITALS: BP 134/69
--- NOTE | 2025-08-21 16:07 | PN.CDI ---
CDI
- -
CDI:
Physician Documentation Request
Admit Date: 08/20/25 03:[address] Palmer,
[facility] is using an adapted version of the 2016 Third International Consensus Definitions for Sepsis and Septic Shock (Sepsis-3) where sepsis is defined as life threatening organ dysfunction caused by a deregulated host response to infection.
Please reference the official [facility] Sepsis Recognition Tool for further information, which can be found on the Intranet under Infection Prevention.
Clinical Indicators Include:
Progress Notes: Patient presented with increased agitation, increased confusion and reported weakness.
Progress notes states 'Suspected Enterococcus UTI...will cover with levofloxacin for now.'
Labs:
Creatinine: 2.1
Platelets: 93
INR 3.74
PTT: 81.7
Based on your medical judgment, can you further clarify the diagnosis being monitored/treated this admission?
� Sepsis due to enterococcus uti with organ dysfunction of (enter documented dysfunction)
� Enterococcus UTI only
� Other
� Clinically unable to determine
Use of terms such as suspected, likely, concern for, or probable (associated with a specific diagnosis that is being evaluated, monitored, or treated as if it exists) are acceptable and can be coded in the inpatient setting when documented at the
time of discharge.
Please use your independent medical judgement in providing your response.
Thank you,
Yesenia Yin RN, BSN
CDI Specialist
tiger text
[2025-08-21] MEDS: LIPITOR PO (17:04)
[2025-08-21] MEDS: SEROQUEL 25 MG PO (20:32)
[2025-08-21 23:23] VITALS: BP 118/85
[2025-08-22] MEDS: SEROQUEL 12.5 MG PO (00:11)
[2025-08-22] MEDS: MELATONIN 3 MG PO (02:31)
[2025-08-22 05:35] VITALS: BP 137/78
[2025-08-22 06:00] VITALS: BMI 20.2
[2025-08-22 07:10] VITALS: BP 121/63
[2025-08-22 08:47] LABS: Hematocrit 28.1 % (39.0-52.0); Hemoglobin 9.8 g/dL (13.0-18.0); Mean Corp Hgb Conc. 34.9 g/dL (33.0-37.0); Mean Corpuscular Volume 84.4 fL (80.0-94.0); Platelet Count 84 10^3/uL (130-400); Red Cell Dist. Width 13.1 % (11.5-14.5)
[2025-08-22] MEDS: KEPPRA 500 MG PO ×2 (08:47→19:54)
[2025-08-22] MEDS: LEXAPRO 20 MG PO (08:47)
[2025-08-22] MEDS: ARICEPT 10 MG PO (08:48)
[2025-08-22] MEDS: LEVAQUIN 50 IV (08:49)
[2025-08-22 08:55] LABS: INR 2.40; PT 26.6 Sec (11.4-14.6)
[2025-08-22 10:21] VITALS: BP 123/78; BP 152/87; PULSE 93; O2SAT 97
[2025-08-22 10:38] LABS: Blood Urea Nitrogen 21 mg/dl (9-20); Calcium 8.2 mg/dl (8.4-10.2); Carbon Dioxide 21 mmol/L (22-30); Chloride 107 mmol/L (98-107); Estimated Creatinine Clearance 38 ml/min; Glucose 101 mg/dl (70-99); Potassium 3.7 mmol/L (3.5-5.1); Sodium 135 mmol/L (135-145); eGFR 42.83
[2025-08-22 11:20] VITALS: BP 123/78; BP 152/87; PULSE 87; O2SAT 98
--- NOTE | 2025-08-22 12:26 | CM ---
Chart reviewed and plan is for skilled placement, patient with senile dementia per physicians note, referrals sent to [facility], [facility] and [facility], Financial POA to complete application form for [facility]. Patient has been
denied at [facility] and [facility].
Plan; Skilled placement.
--- NOTE | 2025-08-22 13:17 | W.PN.HOSP.TC ---
Today's Communication/Plan
-
discharge to SNF once bed available.
Assessment / Plan
Assessment / Plan
Impression:
Patient is a 70y M with PMH significant for senile dementia with behavioral disturbance, hypertension and CKD who presents to ED for evaluation of increased agitation (combative with family members prior to presentation), increased confusion and
reported weakness. Patient with multiple recent hospitalizations for weakness, agitation, etc. Patient was discharged recently to [facility] and then to [facility]. He is apparently now back at home. Patient denies any pain at present.
Patient admitted to the hospital, treated with antibiotic for suspected UTI.
Assessment/plan:
Senile Dementia with Behavioral Disturbance
Acute metabolic encephalopathy
- Admit for further evaluation and treatment.
- Increased agitation at home per report - does not appear to be on Seroquel which was started last admission here.
- Seroquel restarted
- Continue other mood stabilizing medications - follow for any changes.
- Status slightly improved
Sepsis due to enterococcus uti with organ dysfunction of (acute metabolic encephalopathy/acute renal failure).
-Continue Levaquin
-Culture Enterococcus faecalis
ADOLFO on CKD III
- SCr = 2.1 compared to known baseline of 1.2.
- IVF support and follow for improvement in renal function.
- Renal US shows:
Moderate left renal collecting system dilatation with layering debris.
Trabeculated urinary bladder with layering debris.
Small nonobstructing left renal calculus.
Two simple left renal cysts.
- Bladder scan protocol and straight cath / Benjamin if any evidence of retention.
08/20
Creatinine improved
08/21
Creatinine continue to improve.
Hyponatremia
Mild Hypokalemia
Resolved.
Normocytic Anemia
- Hgb 10.6 compared to recent baseline around 13. No obvious evidence of bleeding.
- Has supratherapeutic INR on Coumadin (see below).
- Heme test stools. Check iron studies. Follow clinically for signs of bleeding.
- Follow H&H and transfuse if needed.
Antiphospholipid Antibodies Syndrome/supratherapeutic INR
- On Coumadin with INR supratherapeutic
-INR improved, resumed Coumadin 08/22 .
History of CVA
Seizure Disorder
- Stable. No new evident focal deficits. No seizure activity.
- Continue current med regimen.
CODE STATUS: Full code
DVT prophylaxis: coumadin.
Diet: Regular diet
Communication: Discussed with son Rodrick in the phone, discussed with medical power of regulatory attorney ANNA at bedside.
Disposition: discharge to SNF once bed available.
Total time spent on today's encounter was 55 minutes which included time spent in counseling the patient/family regarding diagnosis and treatment plan as listed above, goals of care, and symptom management. Case was discussed with nursing staff,
specialists, and care coordinators/case management. All labs and imaging personally reviewed by me. Remainder the time spent in detailed review of previous records, lab data, imaging, and other medical provider documentation.
Anticipated Discharge: Today
Subjective/Interval History
-
Date of Service: August 22, 2025
Objective Data
-
Labs:
Laboratory Results
08/22/25
07:29
WBC 5.5
Hgb 9.8 L
Hct 28.1 L
Plt Count 84 L
PT 26.6 H
INR 2.40
Sodium 135
Potassium 3.7
Chloride 107
Carbon Dioxide 21 L
BUN 21 H
Creatinine 1.7 H
Glucose 101 H
Calcium 8.2 L
Vital Signs:
Vital Signs
Temp Pulse Resp BP Pulse Ox
98.2 F 91 15 121/63 95
08/22/25 07:10 08/22/25 07:10 08/22/25 07:10 08/22/25 07:10 08/22/25 07:10
I&O
08/21/25 08/22/25 08/23/25
06:59 06:59 06:59
Intake Total 0 / 0 240 / 240
Output Total 180 / 180
Balance 1740 / 1740 240 / 240
[2025-08-22 15:34] VITALS: BP 135/73
[2025-08-22] MEDS: LIPITOR 20 MG PO (17:34)
[2025-08-22] MEDS: COUMADIN 5 MG PO (17:34)
[2025-08-22] MEDS: SEROQUEL 25 MG PO (19:54)
[2025-08-22 23:59] VITALS: BP 144/88
[2025-08-23] MEDS: SEROQUEL 12.5 MG PO (03:05)
[2025-08-23 06:00] VITALS: BMI 20.3
--- NOTE | 2025-08-23 06:04 | W.PN.UPDATE ---
Update Note
Progress Note Update
pt with an unwitnessed fall this morning- found lying on his left side. On assessment pt curled up in bed lying on his right side. He is unable to describe how he fell when asked and he denies any pain anywhere- only small old scabs noted on left
lateral knee. No visible areas or ecchymosis or hematomas on his head. Pt is able to move all extremities. R>L with a prior hx CVA. Pupils 1mm b/l. Out of an abundance of caution will order a head CT as the pt is on Coumadin.
Vitals: BP:137/78 HR:98 RR:22 Temp:97.8 SPO2:96% RA
--- NOTE | 2025-08-23 06:20 | PTCARENOTE ---
RN visualized patient laying in bed, then went to get supplies to clean patient up for the morning. While walking back to his room, the bed alarm started going off. RN walked into room at approx 0530 and saw patient on the floor, on his left side
next to his bed. Unsure if patient hit his head as he first said that he didn't, then said he did. Patient denied having pain. No visible bumps or bruising to head or any fresh wounds to head or body. Patient stated that he was trying to stand up,
but later said he wasn't sure how it happened. Vitals obtained, BP 137/78 HR 98 RR 22 T 97.8 Pulse ox 96% on RA. Patient able to answer orientation questions. COVERAGE SPECIALIST notified via TT and arrived to unit to assess patient. Head CT ordered. Patient
transported and just returned from CT. Patient had made no previous attempts to get OOB this shift.
[2025-08-23 07:00] VITALS: BP 135/71
[2025-08-23 09:15] LABS: INR 2.52; PT 27.2 Sec (11.4-14.6)
[2025-08-23 09:31] LABS: Hematocrit 27.9 % (39.0-52.0); Hemoglobin 9.6 g/dL (13.0-18.0); Mean Corp Hgb Conc. 34.4 g/dL (33.0-37.0); Mean Corpuscular Volume 84.3 fL (80.0-94.0); Platelet Count 71 10^3/uL (130-400); Red Cell Dist. Width 13.2 % (11.5-14.5)
[2025-08-23] MEDS: KEPPRA 500 MG PO (10:06)
[2025-08-23] MEDS: LEVAQUIN 50 IV (10:06)
[2025-08-23] MEDS: LEXAPRO 20 MG PO (10:07)
[2025-08-23] MEDS: FLUSH (NSS) 1 FLUSH IV (10:09)
[2025-08-23] MEDS: ARICEPT 10 MG PO (10:12)
[2025-08-23 10:51] LABS: Blood Urea Nitrogen 21 mg/dl (9-20); Calcium 8.1 mg/dl (8.4-10.2); Carbon Dioxide 24 mmol/L (22-30); Chloride 106 mmol/L (98-107); Estimated Creatinine Clearance 40 ml/min; Glucose 123 mg/dl (70-99); Potassium 4.1 mmol/L (3.5-5.1); Sodium 138 mmol/L (135-145); eGFR 46.06
--- NOTE | 2025-08-23 13:41 | CM ---
Addendum entered by Flaquita Ontiveros 08/23/25 16:28:
Patient has been approved for 5 days skilled auth [id number], 08/23/11 NRD 08/27 to [phone], Ambulance Auth [id number].
[facility]
Report [phone]

Original Note:
drilling manager continues to follow with patient progress, patient has been declined at [facility], [facility] and [facility], referrals sent to [facility], [facility], [facility], [facility], and [facility].
Plan: skilled placement.
--- NOTE | 2025-08-23 14:07 | W.PN.HOSP.TC ---
Today's Communication/Plan
-
discharge to SNF once bed available. Medically stable. CM aware.
Assessment / Plan
Assessment / Plan
Impression:
Patient is a 70y M with PMH significant for senile dementia with behavioral disturbance, hypertension and CKD who presents to ED for evaluation of increased agitation (combative with family members prior to presentation), increased confusion and
reported weakness. Patient with multiple recent hospitalizations for weakness, agitation, etc. Patient was discharged recently to [facility] and then to [facility]. He is apparently now back at home. Patient denies any pain at present.
Patient admitted to the hospital, treated with antibiotic for suspected UTI.
Assessment/plan:
Senile Dementia with Behavioral Disturbance
Acute metabolic encephalopathy
- Increased agitation at home per report - does not appear to be on Seroquel which was started last admission here.
- Seroquel restarted
- Continue other mood stabilizing medications - follow for any changes.
- Status slightly improved
Sepsis due to enterococcus uti with organ dysfunction of (acute metabolic encephalopathy/acute renal failure).
Complicated UTI (male patient)
- Continue Levaquin. day 01/24
- Culture Enterococcus faecalis
ADOLFO on CKD IIIb
- SCr = 2.1 compared to known baseline of 1.2. Currently 1.6
- continue IVF
- Renal US shows: Moderate left renal collecting system dilatation with layering debris. trabeculated urinary bladder with layering debris. small nonobstructing left renal calculus. Two simple left renal cysts.
- Bladder scan protocol and straight cath / Benjamin if any evidence of retention.
Hyponatremia
Mild Hypokalemia
- both Resolved.
Normocytic Anemia
- Hgb 10.6 compared to recent baseline around 13. No obvious evidence of bleeding.
- Has supratherapeutic INR on Coumadin (see below).
- Heme test stools. Check iron studies. Follow clinically for signs of bleeding.
- Follow H&H and transfuse if needed.
Antiphospholipid Antibodies Syndrome/supratherapeutic INR
- On Coumadin with INR supratherapeutic
- INR improved, resumed Coumadin 08/22 .
History of CVA
Seizure Disorder
- Stable. No new evident focal deficits. No seizure activity.
- Continue current med regimen.
DVT ppx: Coumadin
Code: Full
d/w medical POA - Megan Joneston at bedside
Dispo: SNF once bed found
Anticipated Discharge: 24 - 48 hours
Subjective/Interval History
-
Date of Service: August 23, 2025
overnight event of unwitnessed fall noted; CT head negative
at present, no complaints
Objective Data
-
Labs:
Laboratory Results
08/23/25
08:31
WBC 6.8
Hgb 9.6 L
Hct 27.9 L
Plt Count 71 L
PT 27.2 H
INR 2.52
Sodium 138
Potassium 4.1
Chloride 106
Carbon Dioxide 24
BUN 21 H
Creatinine 1.6 H
Glucose 123 H
Calcium 8.1 L
Vital Signs:
Vital Signs
Temp Pulse Resp BP Pulse Ox
98.1 F 89 18 135/71 100
08/23/25 07:00 08/23/25 07:00 08/23/25 07:00 08/23/25 07:00 08/23/25 07:00
I&O
08/22/25 08/23/25 08/24/25
06:59 06:59 06:59
Intake Total 240 / 240 50 / 50 50 / 50
Balance 240 / 240 50 / 50 50 / 50
Physical Exam
-
General: No Apparent Distress
HEENT: Normocephalic and Atraumatic
Respiratory: Negative Wheezes
Cardiac: Regular Rhythm and S1/S2
GI: Soft
Genito-urinary: No Costovertebral Tender
Neuro: AO x 3
Psych: Calm
Data Reviewed
-
Total Time Spent with Patient (in minutes): 41
Labs: Labs Reviewed by me
[2025-08-23 15:00] VITALS: BP 141/75
--- NOTE | 2025-08-23 15:41 | W.DCSUMMARY ---
Discharge Summary
Discharge Data
Date of Admission: 08/20/25
Date of Discharge: 08/23/25
-
Pending Results: No
Hospital Course
70 y/o M PMH significant for senile dementia with behavioral disturbance, hypertension and CKD presented to ER 08/20 with agitation, confusion, weakness. Head CT was negative. She was found to have sepsis/UTI/ADOLFO from enterococcus UTI and was
prescribed Levaquin for 10 total days. His symptoms improved and he was less agitated (back to baseline) by time of discharged to SNF on 08/23. His Creatinine improved as well with IVF.
Discharge Plan
-
Patient Disposition: [facility]/SNF
Discharge Diagnosis/Procedures: Dementia with behavioral disturbance in setting of UTI (enterococcus), ADOLFO on CKD stage 3b
Condition: Fair
Diet: Regular
Activity: As tolerated
Other Services: PT and OT
Referrals:
UNKNOWN - PT DOES,NOT KNOW [Family Provider]
Prescriptions:
New
levofloxacin 250 mg Tablet
250 mg PO DAILY Qty: 7 0RF
quetiapine 25 mg Tablet
25 mg PO HS Qty: 30 0RF
quetiapine 25 mg Tablet
12.5 mg PO Q8HPRN PRN (Reason: Agitation) Qty: 30 0RF
Continued
atorvastatin 20 mg Tablet
20 mg PO QPM
therapeutic multivitamin Tablet
1 tab PO DAILY
amlodipine 5 mg Tablet
10 mg PO DAILY
escitalopram oxalate 20 mg Tablet
20 mg PO DAILY
cholecalciferol (vitamin D3) [Vitamin D3] 50 mcg (2,000 unit) Tablet
50 mcg PO DAILY
levetiracetam 500 mg Tablet
500 mg PO BID Qty: 60 0RF
warfarin [Coumadin] 5 mg Tablet
5 mg PO DAILY
donepezil 10 mg Tablet
10 mg PO DAILY Qty: 30 0RF
Discontinued
donepezil 10 mg Tablet
10 mg PO DAILY
Discharge Date and Time
Print Language: MONGOLIAN
[2025-08-23] MEDS: NSS 1000 IV (16:09)
[2025-08-23] MEDS: COUMADIN 5 MG PO (18:07)
[2025-08-23] MEDS: LIPITOR 20 MG PO (18:08)
== END 2025-08-23 20:17 | DRG 871 ==
LOC: 4 WEST ACU 03:31
PROVIDERS: Emergency Medicine; General Practice; ADMITTING PHYSICIAN Hospitalist; ATTENDING PHYSICIAN Internal Medicine; EMERGENCY PHYSICIAN Emergency Medicine
DX: A41.81 Sepsis due to Enterococcus (principal); G93.41 Metabolic encephalopathy; N17.9 Acute kidney failure, unspecified; F01.511 Vascular dementia, unspecified severity, with agitation; N39.0 Urinary tract infection, site not specified; F01.518 Vascular dementia, unspecified severity, with other behavioral disturbance; E87.1 Hypo-osmolality and hyponatremia; D68.61 Antiphospholipid syndrome; H34.9 Unspecified retinal vascular occlusion; R65.20 Severe sepsis without septic shock; N18.32 Chronic kidney disease, stage 3b; B95.2 Enterococcus as the cause of diseases classified elsewhere; I12.9 Hypertensive chronic kidney disease with stage 1 through stage 4 chronic kidney disease, or unspecified chronic kidney disease; D64.9 Anemia, unspecified; Z86.73 Personal history of transient ischemic attack (TIA), and cerebral infarction without residual deficits; G40.909 Epilepsy, unspecified, not intractable, without status epilepticus; I48.91 Unspecified atrial fibrillation; E78.5 Hyperlipidemia, unspecified; D69.6 Thrombocytopenia, unspecified; Z79.01 Long term (current) use of anticoagulants; Z88.0 Allergy status to penicillin
CPT/HCPCS: 70450; 76770; 80048; 80053; 81003; 81015; 83540; 83550; 83735; 84439; 84443; 85025; 85027; 85610; 85730; 87077; 87086; 87186; 93005; 96361; 96374; 96375; 97163; 97167; 97530; 99285

== ENCOUNTER 2025-09-23 16:59 | Inpatient (IN) | payer OTHER, SELFPAY ==
[2025-09-23 13:43] VITALS: BP 116/63
[2025-09-23 13:45] VITALS: BP 116/63
--- NOTE | 2025-09-23 13:53 | ED.GENMED ---
History of Present Illness
General
Chief Complaint: Abnormal Lab Value
Time Seen by Provider: 09/23/25 13:39
History of Present Illness
History of Present Illness:
FOCUSED PAST MEDICAL HISTORY
- Antiphospholipid antibody syndrome, dementia, high blood pressure, CKD
REVIEW OF OLD RECORDS
- He admitted here at [facility] 1 month ago due to sepsis, UTI, ADOLFO from Enterococcus UTI was on Levaquin. He was discharged to [facility] rehab.
- Hemoglobin in July 2025 was as high as 13.9
- Hemoglobin at time of discharge 08/23/2025 was 9.6
- Hemoglobin while in rehab 5 days ago was 7.7
Note:
CHIEF COMPLAINT(S)
Acute decline in mental status and weakness.
HISTORY OF PRESENT ILLNESS
The patient is a 70-year-old male with a history of antiphospholipid syndrome and past strokes who presents with acute deterioration in cognitive function and weakness. He was recently found to have a low International Normalized Ratio (INR) of 1.3,
below the therapeutic range, which has historically correlated with cerebrovascular events in his case. The patient was seen previously with a hemoglobin level at 7.7 and has been experiencing worsening mental status, described as 'getting worse and
worse.' Since discharge and rehabilitation, the patient has been disoriented to time, unable to recall his age, but knows he is at [facility]. He had been briefly more lucid following treatment for dehydration and urinary tract infection
with Meperidine and fluids but has since regressed.
PAST MEDICAL HISTORY
Antiphospholipid syndrome with history of strokes.
ADDITIONAL HISTORY OBTAINED FROM SOURCES OTHER THAN THE PATIENT
Per neighbor: The patient was discharged from here to a rehabilitation facility for physical therapy but has shown decline despite treatments. There is a concern of non-therapeutic INR potentially increasing the risk of another stroke. The patient�s
family situation indicated a strained relationship with his son, who moved out rather than assume caregiving responsibilities. His neighbor has been instrumental in arranging care at home, acquiring medical equipment like a bed and lift, and
cleaning the house for patient setup.
CHRONIC MEDICAL CONDITIONS SIGNIFICANTLY AFFECTING CARE
Antiphospholipid syndrome with history of multiple strokes.
SOCIAL DETERMINANTS AFFECTING HEALTH
Limited family support due to strained relations with the son, who refuses to assist in caregiving responsibilities.
REVIEW OF SYSTEMS
- Neurological: Progressive cognitive decline, disorientation to time and age, possible stroke.
- Musculoskeletal: Generalized weakness noted.
PHYSICAL EXAM
- General: Alert but disoriented, appearing weak and debilitated.
- HEENT: Somewhat dry oral mucosa
- Cardiovascular: No murmurs, normal heart rate, regular rhythm, No chest wall tenderness
- Pulmonary: No respiratory distress, breath sounds are clear and equal
- Abdomen: Soft with no peritoneal signs, no tenderness
- Neurologic: Not oriented to time or age; knows location ([facility]). Poor eye contact, appears globally weak.
- Psychiatric: Limited insight and judgment
- Extremities: Nontender, no edema, moves all extremities equally
- Skin: No rash, no lesions
PROBLEM LIST
Acute:
- Cognitive decline
- Generalized weakness
- Suspected low therapeutic INR contributing to symptoms
Chronic:
- Antiphospholipid syndrome
- History of cerebrovascular accidents
PLAN
- Review and adjust anticoagulation with Warfarin to maintain therapeutic INR.
- Conduct a CAT scan to rule out acute intracranial pathology.
- Reassess for potential dehydration and infection management if necessary.
DIFFERENTIAL DIAGNOSIS
The Differential Diagnosis includes, in no particular order and is not limited to:
- Cerebrovascular accident
- Transient ischemic attack
- Dehydration
- Urinary tract infection-related confusion
- Electrolyte imbalance
- Hypoglycemia
- Medication side effect or non-compliance
- Anticoagulation-related complications
- Dementia progression
- Depression with psychomotor slowing
SUMMARY OF ENCOUNTER
The patient was seen in the emergency department for acute decline in mental status and weakness. Investigations showed that his hemoglobin is now 8.6, which is an improvement from a previous low of 7.7. There was no indication for blood transfusion
given the current level. The patients hemoglobin had previously been as high as 13.9, and there is concern about a significant drop, potentially due to hospital stays and IV fluids. Evaluation did not show any blood during a rectal examination, and
kidney function showed deterioration compared to previous results. Management included further fluid administration and obtaining a urine sample for further evaluation.
PLAN
Continue monitoring hemoglobin levels and kidney function. Administer IV fluids as necessary. Obtain urine sample to further assess any underlying issues. Consider further evaluation if hemoglobin or kidney function continues to worsen.
INDEPENDENT REVIEW OF LABS AND INTERPRETATION OF TESTS
My independent review of CBC indicates hemoglobin at 8.6, not requiring immediate transfusion.
My independent review of renal function tests indicates deterioration in kidney function compared to previous results.
PATIENT EDUCATION AND COUNSELING
Explained to the patient and available family that current hemoglobin levels do not warrant a blood transfusion but will require close monitoring. Discussed concerns about kidney function and the need for ongoing assessment.
MEDICAL DECISION MAKING
1. Number and Complexity of Problems Addressed: Chronic conditions affecting care include antiphospholipid syndrome and history of strokes.
2. Data:
Category 1: Lab tests reviewed included hemoglobin levels and renal function.
Category 2: Input from independent historian involved and previous external records reviewed concerning the patients ongoing care and condition.
Category 3: Discussed case with hospitalist regarding management plan.
3. Risk: Prescription medication and therapy monitoring were considered. Due to kidney function and hemoglobin changes, careful evaluation and follow-up are required.
DIAGNOSIS
Anemia, chronic disease-related (ICD-10: D63.8)
Acute on chronic kidney disease
RADIOLOGY
- CT head unremarkable
LABS
- White count 4.6, hemoglobin 8.6, creatinine 2.2
UPDATE
- The patient has heme-negative brown stool
- Admitted here w/ UTI/sepsis and ADOLFO 1M ago.
- Cr then was 2.1 then 1.6 at d/c. Now is back up to 2.2, IV fluids were given.
- Was supposed to be discharged from [facility] today
- Clearly is so weak and debilitated cannot safely go home, appears much older/weaker than a 70yo.
- Jul hgb was as high as 13.9, then 10.6 at last admit, then 9.6 at d/c. At rehab 09/18, was 7.7. Now it is 8.6. This concerned the POA so she wanted him here again. Heme negative brown stool, but has been getting weaker and weaker.
- Afebrile, WBC 4.6 and hgb here is 8.6.
Phy Exam
Physical Exam
Physical Exam:
See HPI
Course
Orders/Labs/Results
Orders:
Orders
09/23/25 13:52
CT Head W/o Iv Contrast Urgent
Comment:
Reason For Exam: alt ms
Straight cath- Treatment ONCE
09/23/25 13:53
0.9% Sodium Chloride 500 ml [Nss] 500 ml IV BOLUS
09/23/25 14:18
Type+Screen Urgent
Complete Blood Count/With Diff Urgent
Comprehensive Metabolic Panel Urgent
Ferritin Urgent
Comment: ADD ON
Iron Urgent
Comment: ADD ON
Prothrombin Time Urgent
Total Iron Binding Urgent
Comment: ADD ON
09/23/25 14:55
Add On- LAB Urgent
Tests Added?: iron, TIBC, ferritin
09/23/25 Dinner
Regular
At Your Request: Limited Participation
Does patient need a safe tray?: No
09/23/25 15:23
0.9% Sodium Chloride 500 ml [Nss] 500 ml IV BOLUS
09/23/25 15:52
Urinalysis Reflex To Culture Urgent
Date Specimen was Collected: 09/23/25
Time Specimen was Collected: 15:50
Urine Microscopic Reflex Cult Urgent
Urine Culture Urgent
DUC Source: U
Specimen Description:
Date Specimen was Collected: 09/23/25
Time Specimen was Collected: 15:50
09/23/25 15:57
Admit/Transfer Patient As Directed
Co-Sign Provider:
Level of Care: Inpatient admission
Assign to:: Medical/Surgical
Physician / Group: Jose Christie
Diagnosis: ADOLFO, Anemia, weakness
Reason for Hospitalization: ADOLFO, Anemia, weakness
Expected length of stay greater than two midnights?: Yes
ELOS- Estimated Length of Stay in days: 2
I certify the patient meets the requirements for IP care: Yes
PRN Pain Medication Management As Directed
May give lesser potent ordered pain med per pt: Yes
preference::
Protocol:: Medication orders for pain may be administered in a
manner that supports deferring to patient preference
when the pt is:
- Requesting an ordered lesser potent pain medication.
Least to most potent pain medications are defined
as: acetaminophen < NSAID < tramadol < opioids
(morphine, oxycodone, hydromorphone).
- Requesting a lesser dose of the same medication IF
ORDERED.
- Requesting a less intrusive route of administration
if both routes are prescribed by the provider (PO <
IV).
09/23/25 15:59
Code Status As Directed
Resuscitation Status: Full Code
09/23/25 16:51
Blood Culture Q30M
DUC Source: Blood/Venous
Specimen Description:
09/23/25 16:52
Blood Culture Q30M
DUC Source: Blood/Venous
Specimen Description:
09/23/25 19:40
0.9% Sodium Chloride 1000 ml [Nss] 1,000 ml IV 100 mls/hr
Acetaminophen [Tylenol] 650 mg PO Q4HPRN PRN
Atorvastatin [Lipitor] 20 mg PO QPM
Donepezil HCl [Aricept] 10 mg PO QPM
Ondansetron Injectable [Zofran] 4 mg IV Q6HPRN PRN
Polyethylene Glycol Powder [Miralax] 17 grams PO DAILYPRN PRN
Polyethylene Glycol Powder [Miralax] 17 grams PO DAILYPRN PRN constipation
09/23/25 19:40
NEPHROLOGY CONSULT Routine
Consulting Provider: Jony Brooks V.
Was physician already notified: Yes
Reason for consult: worsening renal function, APLS
Activity As Directed
Activity Level: With Assistance
Bladder Scan As Directed
Follow Bladder Retention/Intermittent Cath Algorithm?: Yes
PRN if no void in __ hours: 6
Frequency: Per Retention Algorithm
If Bladder Scan Result >: 400
then:: Straight cath
Pneumatic Compression Sleeves As Directed
Type: Knee high
Straight Cath As Directed
Frequency: Per Retention Algorithm
Additional Instructions: straight cath as needed per acute urinary retention algorithm for 24 hrs
Additional Instructions: for bladder scan greater than 400 mL
Vital Signs As Directed
Frequency: Per unit guidelines
Pt Eval And Treat Routine
Activity Level: With Assistance
DX Deep Vein Thrombosis Video Routine
09/23/25 20:00
Levetiracetam [Keppra] 500 mg PO BID
09/23/25 22:00
Trazodone [Desyrel] 25 mg PO HS
09/24/25 07:23
Basic Metabolic Panel IN AM
Complete Blood Count/No Diff IN AM
Prothrombin Time IN AM
09/24/25 08:00
Cholecalciferol (Vitamin D3) [VITAMIN D3 (cholecalciferol)] 50 mcg PO DAILY
Escitalopram Oxalate [Lexapro] 20 mg PO DAILY
09/25/25 06:00
Basic Metabolic Panel IN AM
Complete Blood Count/No Diff IN AM
Prothrombin Time IN AM
09/26/25 06:00
Basic Metabolic Panel IN AM
Complete Blood Count/No Diff IN AM
Prothrombin Time IN AM
Abnormal Lab Results
09/23/25 09/23/25
14:18 15:52
WBC 4.6 L 10^3/uL
(4.8-10.8)
RBC 2.99 L 10^6/uL
(4.70-6.10)
Hgb 8.6 L g/dL
(13.0-18.0)
Hct 26.5 L %
(39.0-52.0)
MCHC 32.5 L g/dL
(33.0-37.0)
RDW 15.6 H %
(11.5-14.5)
Plt Count 109 L 10^3/uL
(130-400)
MPV 12.6 H fL
(7.4-10.4)
Absolute Lymphs (auto) 0.7 L 10^3/uL
(1.2-3.4)
Lymphocytes % 14.3 L %
(20.5-51.1)
Monocytes % 10.6 H %
(1.7-9.3)
PT 17.1 H Sec
(11.4-14.6)
BUN 40 H mg/dl
(9-20)
Creatinine 2.2 H mg/dL
(0.7-1.3)
Glucose 103 H mg/dl
(70-99)
Iron 34 L ug/dl
(49-181)
% Saturation 12 L %
(20-50)
Alkaline Phosphatase 142 H U/L
(38-126)
Ur Occult Blood Reflex 4+ A
(Negative)
Urine Nitrite (Reflex) Positive A
(Negative)
Leukocyte Esterase Rfl 3+ A
(Negative)
Urine RBC 11-15 A /HPF
(0-2)
Urine WBC (Reflex) 50-60 A /HPF
(0-5)
Urine Bacteria (Reflex) Many A
(Negative)
Urine Albumin (Reflex) 3+ A
(Neg - Trace)
09/23/25 14:18
09/23/25 14:18
Vital Signs
Initial and Last Documented VS:
Initial Vital Signs
BP
116/63
09/23/25 13:43
Last Documented Vital Signs
Temp Pulse Resp BP Pulse Ox
36.3 C 67 18 130/69 99
09/24/25 08:27 09/24/25 08:27 09/24/25 08:27 09/24/25 08:27 09/24/25 08:27
*Pulse Oximetry
Patient hypoxic: no
*Critical Care Note
Total Time (30-74mins, 75-104mins- exclusive of procedures): Not Applicable
ED Attending Note
-
Portions of this chart may have been created with voice recognition software.� Occasional wrong word or��sound alike� substitutions may have occurred due to the inherent limitations of voice recognition software.
Discharge Plan
Departure
Patient Disposition: Admit
Date of Disposition: 09/23/25
Time of Disposition: 16:02
Presentation/result/management discussed w/ accepting MD/DO: Hospitalist
Discharge Problem:
Anemia
Interventions
Interventions:
*Risk Screen - Suicide Last Done: 09/23/25 14:13
*General Assessment Last Done: 09/23/25 14:08
*Neglect/Abuse Screening Last Done: 09/23/25 14:13
*ED COVID-19 Vaccine History Last Done: 09/23/25 14:08
*ED Influenza Vaccine History Last Done: 09/23/25 14:08
[facility] Fall Risk Assessment Tool Last Done: 09/23/25 14:08
*Nursing Disposition Last Done: 09/23/25 19:40
Discharge Date and Time
Discharge Date/Time: 09/23/25 19:44
[2025-09-23 14:00] VITALS: BP 101/63
[2025-09-23 14:08] VITALS: BMI 19.0
[2025-09-23] MEDS: NSS 500 IV ×2 (14:14→15:54)
[2025-09-23 14:32] LABS: Hematocrit 26.5 % (39.0-52.0); Hemoglobin 8.6 g/dL (13.0-18.0); Mean Corp Hgb Conc. 32.5 g/dL (33.0-37.0); Mean Corpuscular Volume 88.6 fL (80.0-94.0); Nucleated Red Blood Cells % 0 % (-); Platelet Count 109 10^3/uL (130-400); Red Cell Dist. Width 15.6 % (11.5-14.5)
[2025-09-23 14:37] LABS: INR 1.38; PT 17.1 Sec (11.4-14.6)
[2025-09-23 14:54] LABS: ALT (SGPT) 17 U/L (0-50); AST (SGOT) 20 U/L (17-59); Albumin 3.5 g/dl (3.5-5.0); Alkaline Phosphatase 142 U/L (38-126); Blood Urea Nitrogen 40 mg/dl (9-20); Calcium 8.8 mg/dl (8.4-10.2); Carbon Dioxide 25 mmol/L (22-30); Chloride 105 mmol/L (98-107); Estimated Creatinine Clearance 27 ml/min; Glucose 103 mg/dl (70-99); Potassium 4.5 mmol/L (3.5-5.1); Sodium 138 mmol/L (135-145); Total Protein 7.0 g/dl (6.3-8.2); eGFR 31.43
[2025-09-23 15:22] LABS: Iron 34 ug/dl (49-181)
[2025-09-23 15:31] LABS: Total Iron Binding Capacity 264 ug/dl (261-462)
--- NOTE | 2025-09-23 16:08 | HPS.HSE ---
Family Physician
-
Family Physician: Jadiel Muñoz, DO
Chief Complaint
-
Persistent confusion, generalized weakness
History of Present Illness
Patient is 70-year-old male with past medical history of antiphospholipid antibody syndrome on warfarin, history of stroke, history of dementia, hyperlipidemia, essential hypertension, history of enterococcal UTI, history of seizures,
thrombocytopenia was brought in to ER for persistent confusion and worsening generalized weakness. Patient was discharged to [facility] rehab after [facility] last month after treatment of behavioral issue/sepsis/enterococcal UTI.
Patient did not have significant improvement with weakness in rehab and repeat blood work was showing patient getting more anemic with hemoglobin lowered to 7.7. Patient kidney function remained elevated around creatinine of 2.1. Patient was
brought into ER for further evaluation by patient POA.
In ER patient is somnolent oriented to place only, able to answer questions coherently although persistently somnolent and have to be asked questions repeatedly. Not voicing any ongoing complaint of chest pain/shortness of breath/abdominal
pain/nausea/vomiting/dysuria. Patient does not remember of how well he was doing in the rehab.
Medical History
Past Medical History
Past Medical History: Reports None
Additional Past Medical History:
antiphospholipid antibody syndrome on warfarin, history of stroke, history of dementia, hyperlipidemia, essential hypertension, history of enterococcal UTI, history of seizures, thrombocytopenia
Past Surgical History: Reports None and Other
Social History
Unable to obtain full social history at this time due to: Acuity
Family History
Family History: Not pertinent
Allergies / Home Medications
Allergies reflects when Allergies were last updated in [email or web address].
Home Medications with original date entered in [email or web address]
Allergy/Medication List:
Allergies
Allergy/AdvReac Type Severity Reaction Status Date / Time
Penicillins Allergy Rash Verified 08/19/25 23:04
Home Medications
atorvastatin 20 mg tablet 20 mg PO QPM High Cholesterol 01/26/25
cholecalciferol (vitamin D3) 50 mcg (2,000 unit) tablet (Vitamin D3) 50 mcg PO DAILY Supplement 01/26/25
escitalopram oxalate 20 mg tablet 20 mg PO DAILY Mental Health/Anxiety 01/26/25
therapeutic multivitamin 1 tab PO DAILY Supplement 01/26/25
acetaminophen 325 mg tablet (Tylenol) 650 mg PO Q6HPRN PRN mild pain 09/23/25
amlodipine 10 mg tablet (Norvasc) 10 mg PO DAILY Blood Pressure 09/23/25
bisacodyl 10 mg rectal suppository (Dulcolax (bisacodyl)) 10 mg PA DAILYPRN PRN if no bm aftr mom 09/23/25
donepezil 10 mg tablet 10 mg PO QPM Neurological Condition 09/23/25
levetiracetam 500 mg tablet 500 mg PO BID Seizures 09/23/25
polyethylene glycol 3350 17 gram oral powder packet (Miralax) 17 g PO DAILYPRN PRN constipation 09/23/25
sodium phosphates 19 gram-7 gram/118 mL enema (Fleet Enema) 118 ml PA DAILYPRN PRN if no bm aftr dulcolax 09/23/25
trazodone 50 mg tablet 25 mg PO HS Sleep 09/23/25
Review of Systems
-
Unable to obtain full review of systems at this time due to: Other (Limited review of system only)
Respiratory: Reports No Symptoms
Cardiac: Reports No Symptoms
Abdomen/GI: Reports No Symptoms
: Reports No Symptoms
Physical Exam
Vital Signs
Vital Signs
Temp Pulse Resp BP Pulse Ox
97.6 F 76 15 101/63 99
09/23/25 13:45 09/23/25 14:15 09/23/25 14:15 09/23/25 14:00 09/23/25 14:15
Physical Exam
General: No Apparent Distress
HEENT: No Oxygen
Respiratory: Clear
Cardiac: S1/S2 and Regular Rhythm; No Murmur or Rub
GI: Soft, Non Tender and Non Distended; No Organomegaly
Musculoskeletal: No Clubbing, No Cyanosis and No Edema
Skin: No Rash
Neuro: Awake and Alert; No Oriented (x1, To place only)
Laboratory Results
-
09/23/25 14:18
09/23/25 14:18
Laboratory Results
PT 17.1 Sec (11.4-14.6) H 09/23/25 14:18
INR 1.38 09/23/25 14:18
Total Bilirubin 0.2 mg/dl (0.2-1.3) 09/23/25 14:18
AST 20 U/L (17-59) 09/23/25 14:18
ALT 17 U/L (0-50) 09/23/25 14:18
Alkaline Phosphatase 142 U/L (38-126) H 09/23/25 14:18
Impression/Plan
-
1. Acute kidney injury
- Patient creatinine of 1.2 in August 10. Came in with creatinine of 2.2
- Reason for patient worsening renal function remains unclear although patient have antiphospholipid antibody syndrome and is prone to get renal dysfunction
- Medication reviewed and not on any nephrotoxic medication
- Maintain on IV fluid
- Bladder scan ordered
- Nephrology consulted for further help
2. Rule out toxic metabolic encephalopathy
History of cognitive impairment and behavioral issue
- Patient overall is somnolent in the ER, waking up with answering some questions appropriately
- Maintained on donepezil. Patient is also on Keppra/trazodone and possibly adds to sedation with ongoing renal dysfunction
- CT head has been negative. As patient is prone to get stroke MRI brain has been ordered
- Patient no history of seizures although none reported. Continue monitoring
- Patient had recent enterococcal UTI. Check UA and also blood culture to r/o occult bacteremia.
3. Antiphospholipid antibody syndrome
- Per half-way records patient was not on warfarin?
- INR is 1.38. Patient is also anemic and will need to assure no bleeding diathesis before resuming warfarin
4. Acute on chronic normocytic anemia
- Patient hemoglobin has drifted down from 13 to 8.6 this visit. Of note hemoglobin was 7.7 on 09/20 in SNF
- Stool test neg for occult blood in ER
- Ferritin of 415 in SNF, in ER - Serum iron 34, Iron sat 12, Ferritin - pending
- Is patient developing normocytic anemia with renal dysfunction question?
- Usually patient on warfarin with APLS although has been sub-theraputic.
5. Generalized weakness
- According to family not doing well despite being in rehab for last 3-4 weeks
- As mentioned about ruling out occult bacteremia/Infection.
- Anemia also possibly playing role
- Continue PT while in hospital.
6. Essential HTN
- Blood pressure soft with systolic blood pressure close to 100. Will hold Norvasc for now
7. Thrombocytopenia
- Chronic in nature. Reason unclear
8. History of seizure
History of stroke
- Maintain on home dose of atorvastatin/Keppra
Full code
Total time spent : 77 mins
I personally saw and examined the patient.
I have reviewed all diagnostic interpretations and treatment plans as written.
Time includes patient management by me, time spent at the patients bedside, time to review lab and imaging results, discussing patient care, documentation in the medical record, and time spent with the family or caregiver and discussing care plan
with RN/Consultants.
[2025-09-23 16:15] LABS: Ferritin 263.0 ng/ml (17.9-464.0)
[2025-09-23 16:27] LABS: Urine Character Cloudy (Clear)
[2025-09-23 16:34] LABS: Urine Squamous Cell 0-2 /LPF (Few)
[2025-09-23 16:35] LABS: Urine White Cell 50-60 /HPF (0-5)
[2025-09-23 20:12] VITALS: BP 130/65; BMI 18.6
[2025-09-23] MEDS: KEPPRA 500 MG PO (20:27)
[2025-09-23] MEDS: ARICEPT 10 MG PO (20:27)
[2025-09-23] MEDS: LIPITOR 20 MG PO (20:27)
[2025-09-23] MEDS: NSS 1000 IV (20:32)
[2025-09-23] MEDS: DESYREL 25 MG PO (21:19)
[2025-09-23 23:27] VITALS: BP 123/71
[2025-09-24] MEDS: NSS 1000 IV ×2 (05:43→23:45)
[2025-09-24 08:27] VITALS: BP 130/69
[2025-09-24 08:30] LABS: INR 1.31; PT 16.4 Sec (11.4-14.6)
[2025-09-24 08:45] LABS: Hematocrit 28.5 % (39.0-52.0); Hemoglobin 8.9 g/dL (13.0-18.0); Mean Corp Hgb Conc. 31.2 g/dL (33.0-37.0); Mean Corpuscular Volume 87.7 fL (80.0-94.0); Platelet Count 102 10^3/uL (130-400); Red Cell Dist. Width 15.8 % (11.5-14.5)
[2025-09-24] MEDS: STERILE WATER FOR INJECTION 10 ML IV (09:28)
[2025-09-24] MEDS: ROCEPHIN 1000 MG IV (09:28)
[2025-09-24] MEDS: VANCOCIN 530 MG IV (09:31)
--- NOTE | 2025-09-24 09:35 | PHA.VAN.IN ---
Assessment
- Assessment
Renal Function: SCR Appears Elevated from baseline
Concomitant Antimicrobials: ceftriaxone
Plan
- Plan
Initial / Loading Dose: 1500mg - 09/24 09:31
Maintenance Regimen: dosing by level
Monitoring: random 09/25 600
Pharmacokinetics Vancomycin I
- -
Patient Age: 70
Patient Sex: Male
Vancomycin Day #: 1
Indication: Genito-Urinary Tract
Requesting Provider: Dr. Aubrey Christie
Pertinent Antimicrobial Allergies:
penicillins - rash
Height / Weight:
Height 5 ft 11 in
Actual Weight 60.47 kg
IBW in k.3
Pertinent Past Medical History: BMI ~18.6
- Vital Signs / Lab Results
Temp Pulse Resp BP Pulse Ox
97.3 F 67 18 130/69 99
09/24/25 08:27 09/24/25 08:27 09/24/25 08:27 09/24/25 08:27 09/24/25 08:27
Lab Results - Hematology
09/23/25 09/24/25
14:18 07:23
WBC 4.6 L 4.2 L
Lab Results - Chemistry
09/23/25
14:18
BUN 40 H
Creatinine 2.2 H
Estimated Creat Clear 27
Albumin 3.5
Lab Results - Urine
09/23/25
15:52
Urine Nitrite (Reflex) Positive A
Leukocyte Esterase Rfl 3+ A
Urine WBC (Reflex) 50-60 A
Ur Squamous Epith Cells 0-2
Urine Bacteria (Reflex) Many A
[2025-09-24 09:43] LABS: Blood Urea Nitrogen 32 mg/dl (9-20); Calcium 8.5 mg/dl (8.4-10.2); Carbon Dioxide 23 mmol/L (22-30); Chloride 110 mmol/L (98-107); Estimated Creatinine Clearance 33 ml/min; Glucose 81 mg/dl (70-99); Potassium 4.2 mmol/L (3.5-5.1); Sodium 140 mmol/L (135-145); eGFR 39.99
--- NOTE | 2025-09-24 13:27 | W.CON.NEPH ---
Consultation
-
Date/Time Consultation Requested: 09/24/2025 7:30 AM
Date/Time Consultation Performed: 09/24/2025 130PM
Requesting Provider: Dr. Christie
Performing Provider: Dr. Brooks
Reason for Consultation: ADOLFO
Medical History
-
Chief Complaint: ADOLFO
History of Present Illness:
Patient is 70-year-old male with past medical history of antiphospholipid antibody syndrome on warfarin, history of stroke, history of dementia, hyperlipidemia, essential hypertension, history of enterococcal UTI, history of seizures,
thrombocytopenia was brought in to ER for persistent confusion and worsening generalized weakness. Patient was discharged to [facility] rehab after [facility] last month after treatment of behavioral issue/sepsis/enterococcal UTI.
Patient did not have significant improvement with weakness in rehab and repeat blood work was showing patient getting more anemic with hemoglobin lowered to 7.7. Patient kidney function remained elevated around creatinine of 2.1. Patient was
brought into ER for further evaluation by patient ANKITA.
In ER patient is somnolent oriented to place only, able to answer questions coherently although persistently somnolent and have to be asked questions repeatedly. Not voicing any ongoing complaint of chest pain/shortness of breath/abdominal
pain/nausea/vomiting/dysuria. Patient does not remember of how well he was doing in the rehab. The patient does have a history of chronic kidney disease stage IIIb with creatinines that oscillate between 1.8. We were consulted for acute on
chronic kidney injury.
Past Medical History
antiphospholipid antibody syndrome on warfarin, history of stroke, history of dementia, hyperlipidemia, essential hypertension, history of enterococcal UTI, history of seizures, thrombocytopenia
Social History
Tobacco: Non-Smoker
Family History
Family History: Not Pertinent
Allergies / Home Medications
Allergy/AdvReac Type Severity Reaction Status Date / Time
Penicillins Allergy Rash Verified 08/19/25 23:04
�Medication �Instructions �Recorded �Confirmed �Type
atorvastatin 20 mg tablet 20 mg PO QPM High Cholesterol 01/26/25 09/23/25 History
cholecalciferol (vitamin D3) 50 50 mcg PO DAILY Supplement 01/26/25 09/23/25 History
mcg (2,000 unit) tablet (Vitamin
D3)
escitalopram oxalate 20 mg tablet 20 mg PO DAILY Mental 01/26/25 09/23/25 History
Health/Anxiety
therapeutic multivitamin 1 tab PO DAILY Supplement 01/26/25 09/23/25 History
acetaminophen 325 mg tablet 650 mg PO Q6HPRN PRN mild pain 09/23/25 09/23/25 History
(Tylenol)
amlodipine 10 mg tablet (Norvasc) 10 mg PO DAILY Blood Pressure 09/23/25 09/23/25 History
bisacodyl 10 mg rectal suppository 10 mg [place] DAILYPRN PRN if no bm 09/23/25 09/23/25 History
(Dulcolax (bisacodyl)) aftr mom
donepezil 10 mg tablet 10 mg PO QPM Neurological Condition 09/23/25 09/23/25 History
levetiracetam 500 mg tablet 500 mg PO BID Seizures 09/23/25 09/23/25 History
polyethylene glycol 3350 17 gram 17 g PO DAILYPRN PRN constipation 09/23/25 09/23/25 History
oral powder packet (Miralax)
sodium phosphates 19 gram-7 118 ml [place] DAILYPRN PRN if no bm 09/23/25 09/23/25 History
gram/118 mL enema (Fleet Enema) aftr dulcolax
trazodone 50 mg tablet 25 mg PO HS Sleep 09/23/25 09/23/25 History
Review of Systems
-
History Source: Patient
All other systems: Negative unless noted
Neurological: Weakness and Other (Mental status change)
Physical Exam
Vital Signs
Vital Signs
Temp Pulse Resp BP Pulse Ox
97.3 F 67 18 130/69 99
09/24/25 08:27 09/24/25 08:27 09/24/25 08:27 09/24/25 08:27 09/24/25 08:27
Lab Results
09/24/25 07:23
09/24/25 07:23
WBC 4.2 10^3/uL (4.8-10.8) L 09/24/25 07:23
RBC 3.25 10^6/uL (4.70-6.10) L 09/24/25 07:23
Hgb 8.9 g/dL (13.0-18.0) L 09/24/25 07:23
Hct 28.5 % (39.0-52.0) L 09/24/25 07:23
Plt Count 102 10^3/uL (130-400) L 09/24/25 07:23
Sodium 140 mmol/L (135-145) 09/24/25 07:23
Potassium 4.2 mmol/L (3.5-5.1) 09/24/25 07:23
Chloride 110 mmol/L (98-107) H 09/24/25 07:23
Carbon Dioxide 23 mmol/L (22-30) 09/24/25 07:23
BUN 32 mg/dl (9-20) H 09/24/25 07:23
Creatinine 1.8 mg/dL (0.7-1.3) H 09/24/25 07:23
eGFR 39.99 09/24/25 07:23
Glucose 81 mg/dl (70-99) 09/24/25 07:23
Calcium 8.5 mg/dl (8.4-10.2) 09/24/25 07:23
Albumin 3.5 g/dl (3.5-5.0) 09/23/25 14:18
Physical Exam
General: AOx1, Nontoxic , NAD
HEENT: PERRL, EOMI, Anicteric, Conjunctivae Clear, Ear/Nose Intact, Hearing Normal, Oropharynx Clear/Moist, Dentition Intact, Facial Symmetry, Neck Supple, Neck: Trachea Midline, No JVD and No Thyromegaly, no Bruits
Respiratory: Clear to auscultation bilaterally with normal lung exersion
Cardiac: S1/S2 and Regular Rate/Rhythm
Breast: Deferred by me
Abdomen: Soft, Nontender, Nondistended, Normal Bowel Sounds and No Hepatosplenomegaly
Rectal: Deferred by Provider
Genito-urinary: No Costovertebral Tenderness
Extremities: No Clubbing, No Cyanosis and No Edema
Skin: No Rash or open lesions
Neuro: Nonfocal/Grossly Intact, CN II-XII (Intact) and Strength (Musculoskeletal exam 5 out of 5 both upper and lower extremities)
Hematologic/Lymphatic: No Cervical Lymphadenopathy, No Submandibular Lymphadenopathy and No Supraclavicular Lymphadenopathy
Psych: Mood/afflect pleasant, Insight/judgement good and Appropriate
Vascular: plus 2 pedal and radial pulses
Data Reviewed
-
CT Scan: Report Reviewed by me (Head CT report reviewed: No acute intracranial pathology moderate to severe ventricular dilation possibly due to normal pressure hydrocephalus)
Labs: Labs Reviewed by me (BMP CBC urinalysis)
Old Records: Reviewed (Reviewed old labs from today 08/23/2025 creatinine 1.6)
Assessment/Plan
-
Impression:
ADOLFO
CKD 3b (1.4.-18)
Presentation with weakness/mental status changes
History of antiphospholipid antibody syndrome
History of cognitive impairment and behavioral disorder
Anemia
Thrombocytopenia
Hypertension
History of seizure disorder
Plan:
ADOLFO:
- Differential is wide open
- Urinalysis notes persistent 4+ blood and 3+ albumin urine
- Will obtain an autoimmune GN workup as well as dysproteinemia workup (anemia)
- Check postvoid bladder scan to assure there is no obstructive component
- Renal ultrasound reviewed from August 2025 notable for moderate left renal collecting system dilatation with layering debris could hydronephrosis be in play we will recheck a kidney and bladder ultrasound and or CT scan
- Okay to continue IV fluids
--- NOTE | 2025-09-24 13:33 | W.PN.HOSP.TC ---
Today's Communication/Plan
-
see note
Assessment / Plan
Assessment / Plan
1. Acute kidney injury
- Patient creatinine of 1.2 in August 10. Came in with creatinine of 2.2 > trended down to 1.8
- Reason for patient worsening renal function remains unclear although patient have antiphospholipid antibody syndrome and is prone to get renal dysfunction
- Medication reviewed and not on any nephrotoxic medication
- Maintain on IV fluid
- Bladder scan ordered
- Nephrology consulted for further help
2. Toxic metabolic encephalopathy - Improving
History of cognitive impairment and behavioral issue
- Patient overall is somnolent in the ER, waking up with answering some questions appropriately
- Maintained on donepezil. Patient is also on Keppra/trazodone and possibly adds to sedation with ongoing renal dysfunction
- CT head has been negative. MRI brain will be deferred
- Patient no history of seizures although none reported. Continue monitoring
3. Urinary tract infection
Sepsis -metabolic encephalopathy secondary to urinary tract infection
- Patient had recent enterococcal UTI last month
- Urine culture - growing staphylococcus / blood culture pending
- patient is allergic to penicillin, maintain vancomycin. Gave 1 dose of Rocephin early in the morning before urine culture reported Staphylococcus, holding further dosing
- Renal bladder ultrasound ordered
3. Antiphospholipid antibody syndrome
- Per longterm records patient was not on warfarin?
- Usually patient on warfarin with APLS although has been sub-therapeutic and I personally reviewed longterm records and patient was not on warfarin?
- starting back on warfarin, low concern for GI bleed.
4. Acute on chronic normocytic anemia
- Patient hemoglobin has drifted down from 13 to 8.6 this visit. Of note hemoglobin was 7.7 on 09/20 in SNF
- Stool test neg for occult blood in ER
- Ferritin of 415 in SNF, in ER - Serum iron 34, Iron sat 12, Ferritin 263
- Is patient developing normocytic anemia with renal dysfunction ?
5. Generalized weakness
- According to family not doing well despite being in rehab for last 3-4 weeks
- As mentioned about ruling out occult bacteremia/Infection.
- Anemia also possibly playing role
- Continue PT while in hospital.
6. Essential HTN
- Blood pressure soft with systolic blood pressure close to 100. Will hold Norvasc for now
7. Thrombocytopenia
- Chronic in nature. Reason unclear
8. History of seizure
History of stroke
- Maintain on home dose of atorvastatin/Keppra
9. R/o dysphagia
- ST evaluation pending.
Full code
Complex medical care and issues as above.
Anticipated Discharge: > 48 hours
Subjective/Interval History
-
Date of Service: September 24, 2025
Mentation better
Oriented to time and person
Remains to be somnolent at times
Objective Data
-
Labs:
Laboratory Results
09/24/25
07:23
WBC 4.2 L
Hgb 8.9 L
Hct 28.5 L
Plt Count 102 L
PT 16.4 H
INR 1.31
Sodium 140
Potassium 4.2
Chloride 110 H
Carbon Dioxide 23
BUN 32 H
Creatinine 1.8 H
Glucose 81
Calcium 8.5
Vital Signs:
Vital Signs
Temp Pulse Resp BP Pulse Ox
97.3 F 67 18 130/69 99
09/24/25 08:27 09/24/25 08:27 09/24/25 08:27 09/24/25 08:27 09/24/25 08:27
I&O
09/23/25 09/24/25 09/25/25
06:59 06:59 06:59
Intake Total 1200 / 1200
Output Total 700 / 700
Balance 500 / 500
Review of Systems
-
Respiratory: Reports No Symptoms
Cardiac: Reports No Symptoms
Abdomen/GI: Reports No Symptoms
Physical Exam
-
HEENT: Negative Oxygen
Respiratory: Clear to Auscultation
GI: Soft, Nontender and Nondistended
Neuro: Awake and Alert; Negative Oriented
Psych: Calm
[2025-09-24 13:39] VITALS: BMI 18.6
[2025-09-24] MEDS: KEPPRA 500 MG PO ×2 (13:44→19:38)
[2025-09-24] MEDS: VITAMIN D3 (cholecalciferol) 50 MCG PO (13:46)
[2025-09-24] MEDS: LEXAPRO 20 MG PO (13:46)
--- NOTE | 2025-09-24 13:50 | PTOTSP ---
Dysphagia Evaluation
Patient with acute on chronic dysphagia risk factors (i.e., admitted with confusion; CVA, dementia). However, no signs concerning for oral/pharyngeal dysphagia observed. Patient required assistance with feeding due to confusion.
Recommend:
1. Regular, Thin Liquids
2. Medications as best tolerated
3. FULL supervision, assist as needed
4. Strategies: upright to 90 degrees, small sips/bites, slow rate, liquid wash as needed to assist with oral clearance
5. Oral care 3x daily
6. Per chart review, plan for MRI Brain given elevated risk for stroke. Will complete cognitive linguistic evaluation as appropriate pending results of MRI.
[2025-09-24 16:16] VITALS: BP 117/61
--- NOTE | 2025-09-24 16:39 | CM ---
Pt was forgetful for some of IA. He said CM could call Megan. Megan said he has moved to [address] [place] [address] [employer] [employer] [place] He lives on first floor .Patient was living with son Rodrick but are not speaking now.Megan said she assists him with ADLs..She said he
has declined recently.Megan said she was getting him a stair glide and ranulfo lift. 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 is in memory care [facility].
NO VN HX He was at [facility] x 1 mon recently.
Pharmacy [facility]
PCP DR Maricruz Calzada / Dr Carreno
PLAN Megan requests home with home services
[2025-09-24] MEDS: ARICEPT 10 MG PO (17:59)
[2025-09-24] MEDS: LIPITOR 20 MG PO (18:00)
[2025-09-24] MEDS: COUMADIN 5 MG PO (18:00)
[2025-09-24] MEDS: DESYREL 25 MG PO (19:38)
[2025-09-24 23:51] VITALS: BP 120/59
[2025-09-25 06:53] LABS: INR 1.35; PT 16.8 Sec (11.4-14.6)
[2025-09-25 07:09] LABS: Blood Urea Nitrogen 26 mg/dl (9-20); Calcium 8.2 mg/dl (8.4-10.2); Carbon Dioxide 23 mmol/L (22-30); Chloride 114 mmol/L (98-107); Estimated Creatinine Clearance 37 ml/min; Glucose 93 mg/dl (70-99); Potassium 4.2 mmol/L (3.5-5.1); Sodium 139 mmol/L (135-145); eGFR 46.06
[2025-09-25 07:15] LABS: Hematocrit 20.6 % (39.0-52.0); Hemoglobin 6.8 g/dL (13.0-18.0); Mean Corp Hgb Conc. 33.0 g/dL (33.0-37.0); Mean Corpuscular Volume 85.8 fL (80.0-94.0); Platelet Count 99 10^3/uL (130-400); Red Cell Dist. Width 15.7 % (11.5-14.5)
[2025-09-25 08:03] VITALS: BP 119/65
--- NOTE | 2025-09-25 08:14 | PHA.VAN.FU ---
Vancomycin Assessment / Plan
- Assessment
Renal Function: SCR Decreasing
In the past 24 hrs, patient has been: Afebrile
- Assessment - Therapeutic Drug Monitoring
Random Level: 11.1 - drawn ~20.5H after 1500mg loading dose
- Dosing Plan
Dosing by Level: Re-dose today (Vanc 750mg)
- Monitoring Plan
Random Level: 09/26 0600
- Follow Up
Pharmacy will continue to follow.
Vancomycin Follow UP
- -
Patient Age: 70
Patient Sex: Male
Vancomycin Day #: 2
Indication: Genito-Urinary Tract
Requesting Provider: Dr. Aubrey Christie
Pertinent Antimicrobial Allergies:
penicillins - rash
Height / Weight:
Height 5 ft 11 in
Actual Weight 60.47 kg
IBW in k.3
Pertinent Past Medical History: BMI ~18.6
- Vital Signs / Lab Results
Temp Pulse Resp BP Pulse Ox
97.8 F 68 18 119/65 99
09/25/25 08:03 09/25/25 08:03 09/25/25 08:03 09/25/25 08:03 09/25/25 08:03
Lab Results - Hematology
09/23/25 09/24/25 09/25/25
14:18 07:23 06:19
WBC 4.6 L 4.2 L 2.7 L
Lab Results - Chemistry
09/23/25 09/24/25 09/25/25
14:18 07:23 06:19
BUN 40 H 32 H 26 H
Creatinine 2.2 H 1.8 H 1.6 H
Estimated Creat Clear 27 33 37
Albumin 3.5
Lab Results - Urine
09/23/25
15:52
Urine Nitrite (Reflex) Positive A
Leukocyte Esterase Rfl 3+ A
Ur Squamous Epith Cells 0-2
Microbiology Results
09/23/25 15:52 Urine Culture - Preliminary
Urine Staphylococcus species
09/23/25 16:52 Blood Culture - Preliminary
Blood/Venous No Growth in 24 hours- Final report to follow
09/23/25 16:51 Blood Culture - Preliminary
Blood/Venous No Growth in 24 hours- Final report to follow
Therapeutic Drug Monitoring
Random Vancomycin 11.1 ug/ml 09/25/25 06:19
[2025-09-25] MEDS: KEPPRA 500 MG PO ×2 (09:14→20:41)
[2025-09-25] MEDS: VITAMIN D3 (cholecalciferol) 50 MCG PO (09:14)
[2025-09-25] MEDS: LEXAPRO 20 MG PO (09:16)
--- NOTE | 2025-09-25 09:21 | CON.GI ---
Addendum entered and electronically signed by Sabas Mackey MD 09/25/25 12:41:
Patient seen and examined, agree with nurse practitioner. The patient is a 70-year-old male with past medical history as noted who presents with confusion and anemia. He had recent hospitalizations with syncope, agitation, confusion and UTI, now
with anemia. His hemoglobin which had been normal has at least a 4 g drop over the past couple of months. Today was lower than on admission, though not repeated. He denies any abdominal pain, dysphagia, odynophagia, melena or hematochezia. He
has heme-negative brown stool now. He is never had an endoscopy or colonoscopy. On exam he has no significant abdominal tenderness. Iron studies are mixed. He is on Coumadin for antiphospholipid syndrome, in reviewing his hematology note looks
like he has ITP also.. His bilirubin has been normal.
1. Anemia: With significant drop over the past couple of months, though no gross bleeding, is heme-negative now, and mixed iron studies, likely more related to anemia of chronic disease with chronic renal insufficiency. There is unclear if this
morning's hemoglobin was truly accurate, as again without any gross bleeding, now awaiting posttransfusion repeat. Will await CT scan to rule out other blood loss such as rectus sheath hematoma or retroperitoneal hematoma which again seem less
likely without symptoms. He does have underlying ITP and more hematological reason could be possible, though with normal bilirubin hemolysis is unlikely. At this point without any GI symptoms or gross bleeding, heme-negative and mixed iron studies
we will hold on EGD and colonoscopy for now, has declined in the past. Would continue supportive care, await CT scan as ordered and observe for signs of bleeding.
Original Note:
Consultation
-
Date/Time Consultation Requested: 09/25/25899
Date/Time Consultation Performed: 09/25/25919
Requesting Provider: Shemar Christie MD
Performing Provider: DAVIDSON Mistry, Minor Mackey MD
Reason for Consultation: anemia with pancytopenia
Medical History
Chief Complaint / HPI
History of Present Illness:
Pt is a 70yo with hx CVA, HTN, hypercholesterolemia, seizures, dementia, depression, hx + ETHAN, prior mono, antiphospholipid AB syndrome on warfarin , ocular migraines, retinal artery occlusion, UTI, thrombocytopenia with admission in July with
syncope with subtherapeutic INR. He then returned in August with agitation, confusion and weakness with concern for sepsis and UTI with Levaquin therapy for 10 days. Pt now returns 09/23 with abnormal labs with concern for progressive drop in
hbg and concern for acute on chronic CKD, UTI with MRSA on urine culture. In review of chart hbg was 13.6 in July then 9-10 range in August and now down to 6.8 with chronic leukocytopenia and pancytopenia. Iron 24, TIBC 264, % sat 12,
ferritin 263 with stable LFT's with minimal elevated alk phos [address], LDH pending.
In review with patient and friend ANNA, pt has had wt loss of 10 lbs with recent admission adn rehab stay. He otherwise denies any hx GI issues with odynophagia, dysphagia, GERD, nausea, vomiting, abdominal pain, diarrhea, constipation, blood
or black in stool. No hx EGD or colonoscopy and per ANNA has declined with hx multiple CVA's. He does follow with Dr. Acuna from Hepatology for anticoagulation and has been noted with low WBC and platelets for a long time. No NSAID use.
Past Medical History
Past Medical History: CVA, HTN, Hypercholesterolemia, Seizures, Psychiatric (dementia , depression) and Other (hx + ETHAN, prior mono, antiphospholipid AB syndrome on warfarin , ocular migraines, reninal artery occlusion, UTI, thrombocytopenia)
Past Surgical History: Other (wisdom teeth )
Social History
Tobacco: Non-Smoker
Alcohol: None
Drug: None
Living: Other (neighbor ANNA assist [facility] care )
Employment: Not Employed
Family History
Family History: Other (denies family hx GI issues )
Allergies / Home Medications
Allergy/AdvReac Type Severity Reaction Status Date / Time
Penicillins Allergy Rash Verified 08/19/25 23:04
�Medication �Instructions �Recorded
atorvastatin 20 mg tablet 20 mg PO QPM High Cholesterol 01/26/25
cholecalciferol (vitamin D3) 50 50 mcg PO DAILY Supplement 01/26/25
mcg (2,000 unit) tablet (Vitamin
D3)
escitalopram oxalate 20 mg tablet 20 mg PO DAILY Mental 01/26/25
Health/Anxiety
therapeutic multivitamin 1 tab PO DAILY Supplement 01/26/25
acetaminophen 325 mg tablet 650 mg PO Q6HPRN PRN mild pain 09/23/25
(Tylenol)
amlodipine 10 mg tablet (Norvasc) 10 mg PO DAILY Blood Pressure 09/23/25
bisacodyl 10 mg rectal suppository 10 mg [place] DAILYPRN PRN if no bm 09/23/25
(Dulcolax (bisacodyl)) aftr mom
donepezil 10 mg tablet 10 mg PO QPM Neurological Condition 09/23/25
levetiracetam 500 mg tablet 500 mg PO BID Seizures 09/23/25
polyethylene glycol 3350 17 gram 17 g PO DAILYPRN PRN constipation 09/23/25
oral powder packet (Miralax)
sodium phosphates 19 gram-7 118 ml [place] DAILYPRN PRN if no bm 09/23/25
gram/118 mL enema (Fleet Enema) aftr dulcolax
trazodone 50 mg tablet 25 mg PO HS Sleep 09/23/25
Review of Systems
-
Unable to obtain full review of systems at this time due to: Dementia
History Source: Patient and Other (friend ANNA to assist per patient )
Constitutional: Reports Weight Loss
EENT: Reports No Symptoms
Respiratory: Reports No Symptoms
Cardiac: Reports No Symptoms
Abdomen/GI: Reports No Symptoms
: Reports No Symptoms
Musculoskeletal: Reports No Symptoms
Skin: Reports No Symptoms
Neurological: Reports Weakness (with hx CVA)
Endocrine: Reports No Symptoms
Hematologic/Lymphatic: Reports No Symptoms
Vital Signs
Temp Pulse Resp BP Pulse Ox
97.8 F 68 18 119/65 99
09/25/25 08:03 09/25/25 08:03 09/25/25 08:03 09/25/25 08:03 09/25/25 08:03
Physical Exam
Exam
General: Well Developed, Well Nourished, No Apparent Distress and Other (sleepy but aswering all questions with nods and some verbal communication)
HEENT: Normocephalic and Anicteric
Respiratory: Clear
Cardiac: Regular Rhythm
GI: Soft, Non Tender and Non Distended
Rectal: Brown, Hem Negative and Other (nurse Umer assist with exam)
Musculoskeletal: No Clubbing and No Cyanosis
Skin: Warm and Dry
Neuro: Other (hemiplegia )
Psych: Calm
Results
WBC 2.7 10^3/uL (4.8-10.8) L 09/25/25 06:19
Hgb 6.8 g/dL (13.0-18.0) L* D 09/25/25 06:19
Hct 20.6 % (39.0-52.0) L* 09/25/25 06:19
MCV 85.8 fL (80.0-94.0) 09/25/25 06:19
Plt Count 99 10^3/uL (130-400) L 09/25/25 06:19
Absolute Neuts (auto) 3.4 10^3/uL (1.4-6.5) 09/23/25 14:18
PT 16.8 Sec (11.4-14.6) H 09/25/25 06:19
INR 1.35 09/25/25 06:19
Sodium 139 mmol/L (135-145) 09/25/25 06:19
Potassium 4.2 mmol/L (3.5-5.1) 09/25/25 06:19
Chloride 114 mmol/L (98-107) H 09/25/25 06:19
Carbon Dioxide 23 mmol/L (22-30) 09/25/25 06:19
BUN 26 mg/dl (9-20) H 09/25/25 06:19
Creatinine 1.6 mg/dL (0.7-1.3) H 09/25/25 06:19
Calcium 8.2 mg/dl (8.4-10.2) L 09/25/25 06:19
Total Bilirubin 0.2 mg/dl (0.2-1.3) 09/23/25 14:18
AST 20 U/L (17-59) 09/23/25 14:18
ALT 17 U/L (0-50) 09/23/25 14:18
Alkaline Phosphatase 142 U/L (38-126) H 09/23/25 14:18
Diagnostic Image Results:
09/24/25 Renal US
IMPRESSION: Limited visualization of the right kidney with no gross evidence for pelvicalyceal dilation. 2 nephroliths within the right kidney.
Dilation of the left renal pelvis with probable dilation of the left-sided calyces, suggesting moderate left pelvicalyceal dilation, similar appearance to previous ultrasound. Of note, central parapelvic renal cysts can sometimes be mistaken for
calyceal dilation.
There are several additional left renal cysts. Two nephroliths are seen within the left kidney.
Layer of debris within the bladder lumen. Bilateral ureteral jets are demonstrated. Trabeculated bladder wall.
09/23/25 CT Head W/o Iv Contrast
No evidence of acute intracranial abnormality.
Prior GI Procedures:
EGD: none
Colonoscopy: none
Assessment / Plan
-
Pt is a 70yo with hx CVA, HTN, hypercholesterolemia, seizures, dementia, depression, hx + ETHNA, prior mono, antiphospholipid AB syndrome on warfarin , ocular migraines, retinal artery occlusion, UTI, thrombocytopenia with admission in January with
concern for CVA and pt was newly placed on Keppra. He hen returned in July with syncope with subtherapeutic INR and again in August with agitation, confusion and weakness with concern for sepsis and UTI with Levaquin therapy for 10 days.
Pt now returns 09/23 with abnormal labs with concern for progressive drop in hbg and concern for acute on chronic CKD, UTI with MRSA on urine culture. In review of chart hbg was 13.6 in July then 9-10 range in August and now down to 6.8 with
chronic leukocytopenia and pancytopenia. Iron 24, TIBC 264, % sat 12, ferritin 263 with stable LFT's with minimal elevated alk phos [address], LDH pending. In review with patient and friend ANNA, pt has had wt loss of 10 lbs with recent
admission adn rehab stay. He otherwise denies any hx GI issues with odynophagia, dysphagia, GERD, nausea, vomiting, abdominal pain, diarrhea, constipation, blood or black in stool. No hx EGD or colonoscopy and per ANNA has declined with hx
multiple CVA's. He does follow with Dr. Acuna from Hepatology for anticoagulation and has been noted with low WBC and platelets for a long time. No NSAID use.
-anemia with progressive drop last few weeks with heme neg stools, normocytic
-chronic thrombocytopenia/leukopenia of unclear etiology no hx ETOH use
-UTI
-+ blood on UA
-acute on chronic CKD on admission
- antiphospholipid AB syndrome on warfarin
other med problems:
hx CVA, HTN, hypercholesterolemia, seizures, dementia, depression, hx + ETHAN, prior mono, ocular migraines
PLAN:
etiology of anemia related to GI loss but currently with heme neg stools but iron studies with some iron deficiency with stable ferritin vs heme related, multi factorial with CKD/+ blood on UA, vs other
agree with transfusion
trend labs
with heme neg stool ok to stay off PPI therapy
LDH, retic ct and haptoglobin pending
will review need for GI work up with Dr. Mackey as pt has declined in past
will obtain last letter from Dr. Acuna to eval for any chronic underlying heme issues
cont diet currently on clear diet
Pt remain on Warfarin with INR 1.35
current work up per renal with worsening renal function
updated ANNA contact on chart and per pt assist with care
-
-
Thank you for consultation and allowing me to participate in the patient's care. Please call the supervisor epoxy fabrication GI physician during the after hours with any questions or concerns.
[2025-09-25 09:55] LABS: Reticulocyte Count 2.3 % (0.4-2.8)
[2025-09-25 10:11] VITALS: BP 122/71
[2025-09-25 10:18] LABS: Fibrinogen 761 MG/DL (199-459); LDH 169 U/L (120-246)
[2025-09-25 10:35] VITALS: BP 115/68
[2025-09-25 13:42] VITALS: BP 137/76
--- NOTE | 2025-09-25 13:45 | W.PN.HOSP.TC ---
Today's Communication/Plan
-
see note
Assessment / Plan
Assessment / Plan
1. Acute kidney injury - Improving
- Patient creatinine of 1.2 in August 10. Came in with creatinine of 2.2 > trended down to 1.8
- Reason for patient worsening renal function remains unclear although patient have antiphospholipid antibody syndrome and is prone to get renal dysfunction
- Medication reviewed and not on any nephrotoxic medication
- Stop further IVF
- Bladder scan ordered
- Nephrology help appreciated and have sent further surgical workup to rule out any underlying CKD
2. Toxic metabolic encephalopathy - Improving
History of cognitive impairment and behavioral issue
- Patient overall is somnolent in the ER, waking up with answering some questions appropriately
- Maintained on donepezil. Patient is also on Keppra/trazodone and possibly adds to sedation with ongoing renal dysfunction
- CT head has been negative. MRI brain will be deferred as UTI likely causing encephalopathy symptoms.
- Patient no history of seizures although none reported. Continue monitoring
3. MRSA Urinary tract infection
Sepsis -metabolic encephalopathy secondary to urinary tract infection
- Patient had recent enterococcal UTI last month
- Urine culture - growing staphylococcus / blood culture pending
- Patient urine culture growing MRSA, maintain on IV vancomycin.
- Renal bladder ultrasound did not show any acute abnormality.
3. Antiphospholipid antibody syndrome
- Per senior living records patient was not on warfarin?
- Usually patient on warfarin with APLS although has been sub-therapeutic and I personally reviewed senior living records and patient was not on warfarin?
- Warfarin held back as patient having unexplained anemia
4. Acute on chronic normocytic anemia
- Patient hemoglobin has drifted down from 13 to 8.6 this visit. Of note hemoglobin was 7.7 on 09/20 in SNF
- Stool test neg for occult blood in ER
- Ferritin of 415 in SNF, in ER - Serum iron 34, Iron sat 12, Ferritin 263, LDH 163, Normal T kina
- Is patient developing normocytic anemia with renal dysfunction ?
- GI evaluation requested in light of Hbg rapidly dropping
- CT a/p ordered to rule out any intraabdominal bleed
- Ordered 1 unit of PRBC, follow-up CBC ordered
5. Generalized weakness
- According to family not doing well despite being in rehab for last 3-4 weeks
- As mentioned about ruling out occult bacteremia/Infection.
- Anemia also possibly playing role
- Continue PT while in hospital.
6. Essential HTN
- resume back home norvasc
7. Thrombocytopenia
- Chronic in nature. Reason unclear. H/o of ITP?
8. History of seizure
History of stroke
- Maintain on home dose of atorvastatin/Keppra
9. R/o dysphagia
- ST cleared for reg diet
Full code
Complex medical care and issues as above.
care plan discussed with nephrology and gastroenterology
Anticipated Discharge: > 48 hours
Subjective/Interval History
-
Date of Service: September 25, 2025
Remains somnolent although waking up and answering questions appropriately at times
no reported acute events overnight by RN
Objective Data
-
Labs:
Laboratory Results
09/25/25
06:19
WBC 2.7 L
Hgb 6.8 L* D
Hct 20.6 L*
Plt Count 99 L
PT 16.8 H
INR 1.35
Sodium 139
Potassium 4.2
Chloride 114 H
Carbon Dioxide 23
BUN 26 H
Creatinine 1.6 H
Glucose 93
Calcium 8.2 L
Vital Signs:
Vital Signs
Temp Pulse Resp BP Pulse Ox
99.3 F 65 18 137/76 100
09/25/25 13:42 09/25/25 13:42 09/25/25 13:42 09/25/25 13:42 09/25/25 10:35
I&O
09/24/25 09/25/25 09/26/25
06:59 06:59 06:59
Intake Total 1200 / 1200 1969 / 1969 430 / 430
Output Total 700 / 700 1100 / 1100 550 / 550
Balance 500 / 500 870 / 870 -120 / -120
Review of Systems
-
Unable to obtain full review of systems at this time due to: Acuity
Physical Exam
-
HEENT: Negative Oxygen
Respiratory: Clear to Auscultation
GI: Soft, Nontender and Nondistended
Neuro: Awake and Alert; Negative Oriented
Psych: Calm
[2025-09-25] MEDS: VANCOCIN 150 IV (13:57)
[2025-09-25] MEDS: NSS 1000 IV (13:57)
[2025-09-25 14:49] LABS: Hematocrit 28.1 % (39.0-52.0); Hemoglobin 9.1 g/dL (13.0-18.0); Mean Corp Hgb Conc. 32.4 g/dL (33.0-37.0); Mean Corpuscular Volume 88.1 fL (80.0-94.0); Platelet Count 94 10^3/uL (130-400); Red Cell Dist. Width 15.6 % (11.5-14.5)
--- NOTE | 2025-09-25 15:23 | PN.CDI ---
CDI
- -
CDI:
Physician Documentation Request
Admit Date: 09/23/25 16:59
Dear Doctor Pratik,
Please review the following and provide your response in the progress notes.
Clinical Indicators:
- Health Safety Coordinator note indicates moderate protein calorie malnutrition
- Unintentional weight loss >7.5% in 3 months
- Nutrient intake </= 75% estimated energy needs, >/= 1 month
Based on the above information and your assessment, which of the following most accurately represents the patient's nutritional status?
Moderate protein calorie malnutrition
Other (please specify)
[place] Criteria ([facility] Hospitalist 2017)
2 or more criteria must be present for either
non severe or severe malnutrition
Note that the criteria differs related to the
presence of an acute or chronic illness
Acute Illness Chronic Illness
Energy Intake Non Severe: <75% for >7 days Non Severe: <75% for >1 month
Severe: <50% for >5 days Severe: <75% for >1 month
Weight Loss Non Severe: 1-2% over 1 week Non Severe: 5% over 1 month
5% over 1 month 7.5% over 3 months
7.5% over 3 months 10% over 6 months
1 year N/A 20% over 1 year
Severe: >2% over 1 week Severe: >5% over 1 month
>5% over 1 month >7.5% over 3 months
>7.5% over 3 months >10% over 6 months
1 year N/A >20% over 1 year
Body Fat Non Severe: Mild Decrease Non Severe: Mild Loss
Severe: Moderate Decrease Severe: Severe Loss
Muscle Mass Non Severe: Mild Decrease Non Severe: Mild Loss
Severe: Moderate Decrease Severe: Severe Loss
Fluid Accumulation Non Severe: Mild Accumulation Non Severe: Mild Accumulation
Severe: Moderate to severe Severe: Moderate to severe
accumulation accumulation
Reduced Multicultural Services Librarian Strength Non Severe: N/A Non Severe: N/A
Severe: Measurably reduced Severe: Measurably reduced
Additional criteria that can be used to Determine if Mild or Moderate Malnutrition ([employer]ck Manual 2018)
Mild Moderate Severe
Albumin gm/dl <3.0 gm/dl <2.5 gm/dl <2.0 gm/dl
Pre Albumin mg/dl <15 gm/dl <10 mg/dl <5.0 mg/dl
BMI <18.5 <17 <16
Use of terms such as suspected, likely, concern for, or probable (associated with a specific diagnosis that is being evaluated, monitored, or treated as if it exists) are acceptable and can be coded in the inpatient setting, when documented at the
time of discharge.
Thank you,
Franko Woo RN
CDI Specialist
Please use your independent medical judgment in providing your response.
--- NOTE | 2025-09-25 15:28 | W.PN.NEPH.PH ---
Today's Communication / Plan
-
follow labs off IVF
CT abd
Assessment/Plan
-
Impression:
ADOLFO
CKD 3b (1.4.-18)
Presentation with weakness/mental status changes
History of antiphospholipid antibody syndrome
History of cognitive impairment and behavioral disorder
Anemia
Thrombocytopenia
Hypertension
History of seizure disorder
left kidney stones non obst
Plan:
ADOLFO: cr improving to 1.6 likely baseline
- Differential is wide open
- Urinalysis notes persistent 4+ blood and 3+ albumin urine, U PCR 1.2gm/gm of cr
pending autoimmune GN workup as well as dysproteinemia workup (anemia)
- Check postvoid bladder scan to assure there is no obstructive component
- Renal ultrasound noted dilation of the left renal pelvis with probable dilation of the left-sided calyces, suggesting moderate left pelvicalyceal dilation simialr to August 2025 , likely get CT to r/o overlying cyst vs obst
BP stable off IVF
follow h/h post PRBC today , fe sat only 12% may benefit from IV fe course
IV abx for UTI per primary
labs in am
-
-
Date of Service: September 25, 2025
CC / HPI / ROS
-
Chief Complaint:
ADOLFO with CKD
History of Present Illness:
cr down to 1.6 baseline
BP stable , no fever
hb low 6.8 s/p PRBC better today
Review of Systems:
does not want to communicate
was angry and did not talk
Labs
-
Labs:
WBC 2.8 10^3/uL (4.8-10.8) L 09/25/25 14:12
RBC 3.19 10^6/uL (4.70-6.10) L 09/25/25 14:12
Hgb 9.1 g/dL (13.0-18.0) L D 09/25/25 14:12
Hct 28.1 % (39.0-52.0) L 09/25/25 14:12
Plt Count 94 10^3/uL (130-400) L 09/25/25 14:12
Sodium 139 mmol/L (135-145) 09/25/25 06:19
Potassium 4.2 mmol/L (3.5-5.1) 09/25/25 06:19
Chloride 114 mmol/L (98-107) H 09/25/25 06:19
Carbon Dioxide 23 mmol/L (22-30) 09/25/25 06:19
BUN 26 mg/dl (9-20) H 09/25/25 06:19
Creatinine 1.6 mg/dL (0.7-1.3) H 09/25/25 06:19
eGFR 46.06 09/25/25 06:19
Glucose 93 mg/dl (70-99) 09/25/25 06:19
Calcium 8.2 mg/dl (8.4-10.2) L 09/25/25 06:19
Albumin 3.5 g/dl (3.5-5.0) 09/23/25 14:18
Physical Exam
-
Vital Signs:
Vital Signs
Temp Pulse Resp BP Pulse Ox
98.8 F 65 18 137/76 99
09/25/25 15:03 09/25/25 13:42 09/25/25 13:42 09/25/25 13:42 09/25/25 15:03
Cardiovascular:: Regular rate and rhythm
Respiratory:: Bilateral: CTA (decreased)
Lung Excursion:: Normal
Abdomen:: Nontender and Soft
Extremity Edema:: None: Bilateral:
Benjamin Catheter: No
[2025-09-25] MEDS: ARICEPT 10 MG PO (17:18)
[2025-09-25] MEDS: LIPITOR 20 MG PO (17:18)
[2025-09-25] MEDS: DESYREL 25 MG PO (20:41)
[2025-09-25 23:17] VITALS: BP 121/69
[2025-09-26 06:21] LABS: Hematocrit 26.8 % (39.0-52.0); Hemoglobin 8.8 g/dL (13.0-18.0); Mean Corp Hgb Conc. 32.8 g/dL (33.0-37.0); Mean Corpuscular Volume 86.5 fL (80.0-94.0); Platelet Count 93 10^3/uL (130-400); Red Cell Dist. Width 15.6 % (11.5-14.5)
[2025-09-26 06:23] LABS: INR 1.41; PT 17.0 Sec (11.4-14.6)
--- NOTE | 2025-09-26 06:46 | W.PN.GI.CBS2 ---
Today's Communication / Plan
-
Please see assessment and plan for details.
Assessment / Plan
-
1. Anemia: with significant drop over the past couple of months, though likely multifactorial, with mixed iron studies, though no gross bleeding or GI symptoms, heme-negative now. There could also be some underlying hematological reason, again
next iron study send no gross bleeding. I again discussed with him role for endoscopic evaluation, and he declines endoscopy or colonoscopy. 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
continued supportive care.
We will sign off for now, please call back with any further questions.
Subjective
Subjective
Date of Service: September 26, 2025
Patient feeling okay overnight, denies abdominal pain, nausea or vomiting. Tolerating liquids without difficulty. No bowel movements overnight.
Objective
Data Reviewed
Laboratory Data:
Laboratory Results
09/26/25 06:07
Laboratory Results
PT 17.0 Sec (11.4-14.6) H 09/26/25 06:07
INR 1.41 09/26/25 06:07
Total Bilirubin 0.2 mg/dl (0.2-1.3) 09/23/25 14:18
AST 20 U/L (17-59) 09/23/25 14:18
ALT 17 U/L (0-50) 09/23/25 14:18
Alkaline Phosphatase 142 U/L (38-126) H 09/23/25 14:18
Vital Signs and I&O:
Vital Signs
Temp Pulse Resp BP Pulse Ox
98.3 F 74 18 121/69 99
09/25/25 23:17 09/25/25 23:17 09/25/25 23:17 09/25/25 23:17 09/25/25 23:17
I&O
09/24/25 09/25/25 09/26/25
06:59 06:59 06:59
Intake Total 1200 / 1200 1969 / 1969 970 / 970
Output Total 700 / 700 1100 / 1100 900 / 900
Balance 500 / 500 870 / 870 70 / 70
Physical Exam
Physical Exam
General: NAD
Abdomen: normal bowel sounds, soft, no tenderness, no masses or bruits, no ascites
[2025-09-26 07:26] LABS: Blood Urea Nitrogen 20 mg/dl (9-20); Calcium 8.3 mg/dl (8.4-10.2); Carbon Dioxide 22 mmol/L (22-30); Chloride 108 mmol/L (98-107); Estimated Creatinine Clearance 39 ml/min; Glucose 90 mg/dl (70-99); Potassium 3.9 mmol/L (3.5-5.1); Sodium 138 mmol/L (135-145); eGFR 49.77
[2025-09-26 07:52] VITALS: BP 129/73
--- NOTE | 2025-09-26 07:54 | PHA.VAN.FU ---
Vancomycin Assessment / Plan
- Assessment
Renal Function: Stable
WBC's are: Stable
In the past 24 hrs, patient has been: Afebrile
- Assessment - Therapeutic Drug Monitoring
Random Level: 15.6 - drawn ~16H after previous dose of 750mg
- Dosing Plan
Dosing by Level: Re-dose today (Vanc 750mg)
- Monitoring Plan
Random Level: 09/27 0600
- Follow Up
Pharmacy will continue to follow.
Vancomycin Follow UP
- -
Patient Age: 70
Patient Sex: Male
Vancomycin Day #: 3
Indication: Genito-Urinary Tract
Requesting Provider: Dr. Aubrey Christie
Pertinent Antimicrobial Allergies:
penicillins - rash
Height / Weight:
Height 5 ft 11 in
Actual Weight 60.47 kg
IBW in k.3
Pertinent Past Medical History: BMI ~18.6
- Vital Signs / Lab Results
Temp Pulse Resp BP Pulse Ox
98.3 F 74 18 121/69 99
09/25/25 23:17 09/25/25 23:17 09/25/25 23:17 09/25/25 23:17 09/25/25 23:17
Lab Results - Hematology
09/23/25 09/24/25 09/25/25
14:18 07:23 06:19
WBC 4.6 L 4.2 L 2.7 L
09/25/25 09/26/25
14:12 06:07
WBC 2.8 L 3.6 L
Lab Results - Chemistry
09/23/25 09/24/25 09/25/25
14:18 07:23 06:19
BUN 40 H 32 H 26 H
Creatinine 2.2 H 1.8 H 1.6 H
Estimated Creat Clear 27 33 37
Albumin 3.5
09/26/25
06:07
BUN 20
Creatinine 1.5 H
Estimated Creat Clear 39
Albumin
Microbiology Results
09/23/25 16:51 Blood Culture - Preliminary
Blood/Venous No Growth in 48 hours- Final report to follow
09/23/25 16:52 Blood Culture - Preliminary
Blood/Venous No Growth in 48 hours- Final report to follow
09/23/25 15:52 Urine Culture - Final
Urine Staph aureus MRSA
Therapeutic Drug Monitoring
Random Vancomycin 15.6 ug/ml 09/26/25 06:06
[2025-09-26 08:47] VITALS: BP 136/71; PULSE 62; O2SAT 100
[2025-09-26] MEDS: VITAMIN D3 (cholecalciferol) 50 MCG PO (09:38)
[2025-09-26] MEDS: NORVASC 10 MG PO (09:38)
[2025-09-26] MEDS: KEPPRA 500 MG PO ×2 (09:38→19:46)
[2025-09-26] MEDS: LEXAPRO 20 MG PO (09:42)
--- NOTE | 2025-09-26 11:50 | VNURNOTE ---
Chart reviewed. Spoke with pt's friend Megan. friend said that [facility] was set up for him when he was DC'ed from [facility] 09/23. (he then went to [facility] because 'anemia was not addressed and he was so weak.' - Explained to friend that if
other agency already accepted him, usually pts would resume w/ their services. Friend stated she didn't care which [facility] agency. I called [facility], spoke w/Renata. She confirmed that they accepted him and were planning on SOC visit 09/25. They are
aware he is in [facility] now.
MARGO Gillette updated via T.T. Referral to [facility].
--- NOTE | 2025-09-26 13:29 | W.PN.HOSP.TC ---
Addendum entered and electronically signed by Jose Christie MD 09/26/25 13:37:
Moderate protein calorie malnutrition
Original Note:
Today's Communication/Plan
-
see note
Assessment / Plan
Assessment / Plan
1. Acute kidney injury - Improving
- Patient creatinine of 1.2 in August 10. Came in with creatinine of 2.2 > trended down to 1.8
- Reason for patient worsening renal function remains unclear although patient have antiphospholipid antibody syndrome and is prone to get renal dysfunction
- Medication reviewed and not on any nephrotoxic medication
- Stop further IVF
- Bladder scan ordered
- Nephrology help appreciated and have sent further surgical workup to rule out any underlying CKD
2. Toxic metabolic encephalopathy - Improving
History of cognitive impairment and behavioral issue
- Patient overall is somnolent in the ER, waking up with answering some questions appropriately
- Maintained on donepezil. Continue on Keppra for now
- CT head has been negative. MRI brain will be deferred as UTI likely causing encephalopathy symptoms.
- Patient no history of seizures although none reported. Continue monitoring
- MRI Brain ordered to r/o stroke
- Stopping nighttime trazodone as may be causing day time somnolence
3. MRSA Urinary tract infection
Sepsis -metabolic encephalopathy secondary to urinary tract infection
- Patient had recent enterococcal UTI last month
- Urine culture - growing staphylococcus / blood culture pending
- Patient urine culture growing MRSA, maintain on IV vancomycin.
- Renal bladder ultrasound did not show any acute abnormality.
3. Antiphospholipid antibody syndrome
- Per intermediate records patient was not on warfarin?
- Usually patient on warfarin with APLS although has been sub-therapeutic and I personally reviewed intermediate records and patient was not on warfarin?
- Warfarin held as patient having unexplained anemia
4. Acute on chronic normocytic anemia
- Patient hemoglobin has drifted down from 13 to 8.6 this visit. Of note hemoglobin was 7.7 on 09/20 in SNF
- Stool test neg for occult blood in ER
- Ferritin of 415 in SNF, in ER - Serum iron 34, Iron sat 12, Ferritin 263, LDH 163, Normal T kina
- Is patient developing normocytic anemia with renal dysfunction ?
- GI evaluation requested in light of Hbg rapidly dropping
- CT a/p ruled out any intra-abdominal bleeding source.
- S/p 1 unit PRBC on 09/25. Hemoglobin of 8.8 continue monitor
- Will consider hematology involvement if patient have repeated drops in hemoglobin
- Repeat stool test for occult bleeding has been ordered to rule out any episodic nature of bleed
5. Generalized weakness
- According to family not doing well despite being in rehab for last 3-4 weeks
- As mentioned about ruling out occult bacteremia/Infection. Anemia also possibly playing role
- Patient not participating with physical therapy, discussed with MPOA and requested to be present if possible tomorrow
6. Essential HTN
- resume back home norvasc
7. Thrombocytopenia
- Chronic in nature. Reason unclear. H/o of ITP?
8. History of seizure
History of stroke
- Maintain on home dose of atorvastatin/Keppra
9. R/o dysphagia
- ST cleared for reg diet
Full code
Complex medical care and issues as above.
Medical power of privacy attorney Megan updated over the phone 09/26
Anticipated Discharge: > 48 hours
Subjective/Interval History
-
Date of Service: September 26, 2025
Remains somnolent although waking up on verbal cue
No new issues reported by nurse overnight
No reported melena/blood in stool
Objective Data
-
Labs:
Laboratory Results
09/26/25
06:07
WBC 3.6 L
Hgb 8.8 L
Hct 26.8 L
Plt Count 93 L
PT 17.0 H
INR 1.41
Sodium 138
Potassium 3.9
Chloride 108 H
Carbon Dioxide 22
BUN 20
Creatinine 1.5 H
Glucose 90
Calcium 8.3 L
Vital Signs:
Vital Signs
Temp Pulse Resp BP Pulse Ox
98.3 F 65 16 129/73 99
09/26/25 07:52 09/26/25 09:38 09/26/25 07:52 09/26/25 09:38 09/26/25 07:52
I&O
09/25/25 09/26/25 09/27/25
06:59 06:59 06:59
Intake Total 1969 / 1969 970 / 970
Output Total 1100 / 1100 900 / 900
Balance 870 / 870 70 / 70
Review of Systems
-
Unable to obtain full review of systems at this time due to: Acuity
Physical Exam
-
HEENT: Negative Oxygen
Respiratory: Clear to Auscultation
GI: Soft, Nontender and Nondistended
Neuro: Awake and Alert; Negative Oriented
Psych: Calm
[2025-09-26 15:06] VITALS: BP 120/64
--- NOTE | 2025-09-26 16:18 | W.PN.NEPH.PH ---
Today's Communication / Plan
-
follow labs , encouage po intake
Assessment/Plan
-
Impression:
ADOLFO
CKD 3b (1.4.-18)
Presentation with weakness/mental status changes
History of antiphospholipid antibody syndrome
History of cognitive impairment and behavioral disorder
Anemia
Thrombocytopenia
Hypertension
History of seizure disorder
left kidney stones non obst
Plan:
ADOLFO: cr improving to 1.5 likely baseline
Urinalysis notes 4+ blood and 3+ albumin urine, U PCR 1.2gm/gm of cr
pending autoimmune GN workup as well as dysproteinemia workup (anemia), complements normal, ASO neg
- Check postvoid bladder scan to assure there is no obstructive component
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
follow h/h improving post PRBC, fe sat only 12% start IV fe course
IV abx for UTI per primary
labs in am
d/w pt, MS seem better today. s/p MRI brain
-
-
Date of Service: September 26, 2025
CC / HPI / ROS
-
Chief Complaint:
ADOLFO with CKD
History of Present Illness:
cr down to 1.5 baseline
BP stable , no fever
hb low 8.8s/p PRBC better 09/25
Review of Systems:
offers no pain or sob
no abd pain
no fever
Labs
-
Labs:
WBC 3.6 10^3/uL (4.8-10.8) L 09/26/25 06:07
RBC 3.10 10^6/uL (4.70-6.10) L 09/26/25 06:07
Hgb 8.8 g/dL (13.0-18.0) L 09/26/25 06:07
Hct 26.8 % (39.0-52.0) L 09/26/25 06:07
Plt Count 93 10^3/uL (130-400) L 09/26/25 06:07
Sodium 138 mmol/L (135-145) 09/26/25 06:07
Potassium 3.9 mmol/L (3.5-5.1) 09/26/25 06:07
Chloride 108 mmol/L (98-107) H 09/26/25 06:07
Carbon Dioxide 22 mmol/L (22-30) 09/26/25 06:07
BUN 20 mg/dl (9-20) 09/26/25 06:07
Creatinine 1.5 mg/dL (0.7-1.3) H 09/26/25 06:07
eGFR 49.77 09/26/25 06:07
Glucose 90 mg/dl (70-99) 09/26/25 06:07
Calcium 8.3 mg/dl (8.4-10.2) L 09/26/25 06:07
Albumin 3.5 g/dl (3.5-5.0) 09/23/25 14:18
Physical Exam
-
Vital Signs:
Vital Signs
Temp Pulse Resp BP Pulse Ox
98.7 F 68 16 120/64 97
09/26/25 15:06 09/26/25 15:06 09/26/25 15:06 09/26/25 15:06 09/26/25 15:06
Cardiovascular:: Regular rate and rhythm
Respiratory:: Bilateral: CTA (decreased)
Lung Excursion:: Normal
Abdomen:: Nontender and Soft
Extremity Edema:: None: Bilateral:
Benjamin Catheter: No
[2025-09-26] MEDS: LIPITOR 20 MG PO (18:24)
[2025-09-26] MEDS: ARICEPT 10 MG PO (18:24)
[2025-09-26] MEDS: FERRLECIT 110 MG IV (18:29)
[2025-09-26 23:17] VITALS: BP 123/73
[2025-09-27 07:25] VITALS: BP 125/70
[2025-09-27] MEDS: LEXAPRO 20 MG PO (09:00)
[2025-09-27] MEDS: NORVASC 10 MG PO (09:00)
[2025-09-27] MEDS: KEPPRA 500 MG PO ×2 (09:00→20:31)
[2025-09-27] MEDS: VITAMIN D3 (cholecalciferol) 50 MCG PO (09:00)
[2025-09-27 09:44] LABS: Hematocrit 29.9 % (39.0-52.0); Hemoglobin 9.8 g/dL (13.0-18.0); Mean Corp Hgb Conc. 32.8 g/dL (33.0-37.0); Mean Corpuscular Volume 86.7 fL (80.0-94.0); Platelet Count 86 10^3/uL (130-400); Red Cell Dist. Width 15.9 % (11.5-14.5)
[2025-09-27 09:53] LABS: Blood Urea Nitrogen 17 mg/dl (9-20); Calcium 8.7 mg/dl (8.4-10.2); Carbon Dioxide 27 mmol/L (22-30); Chloride 105 mmol/L (98-107); Estimated Creatinine Clearance 37 ml/min; Glucose 86 mg/dl (70-99); Potassium 4.1 mmol/L (3.5-5.1); Sodium 136 mmol/L (135-145); eGFR 46.06
--- NOTE | 2025-09-27 09:58 | PHA.VAN.FU ---
Vancomycin Assessment / Plan
- Assessment
Renal Function: Stable
WBC's are: Stable
In the past 24 hrs, patient has been: Afebrile
- Assessment - Therapeutic Drug Monitoring
Random Level: 9.1 - drawn ~25H after previous level of 15.6
Calculated ke: 0.0214
Calculated half life (H): 32.4
No dose 09/26/25
- Dosing Plan
Dosing by Level: Re-dose today (Vanc 1000mg)
- Monitoring Plan
Random Level: 09/28 0600
Monitoring Comments: based on half-life may be able to give Q48H vanc
Will continue to follow daily levels for now to trend half-life
- Follow Up
Pharmacy will continue to follow.
Vancomycin Follow UP
- -
Patient Age: 70
Patient Sex: Male
Vancomycin Day #: 4
Indication: Genito-Urinary Tract
Requesting Provider: Dr. Aubrey Christie
Pertinent Antimicrobial Allergies:
penicillins - rash
Height / Weight:
Height 5 ft 11 in
Actual Weight 60.47 kg
IBW in k.3
Pertinent Past Medical History: BMI ~18.6
- Vital Signs / Lab Results
Temp Pulse Resp BP Pulse Ox
97.8 F 63 16 125/70 99
09/27/25 07:25 09/27/25 07:25 09/27/25 07:25 09/27/25 07:25 09/27/25 07:25
Lab Results - Hematology
09/25/25 09/25/25 09/26/25
06:19 14:12 06:07
WBC 2.7 L 2.8 L 3.6 L
09/27/25
07:12
WBC 3.5 L
Lab Results - Chemistry
09/25/25 09/26/25 09/27/25
06:19 06:07 07:12
BUN 26 H 20 17
Creatinine 1.6 H 1.5 H 1.6 H
Estimated Creat Clear 37 39 37
Microbiology Results
09/23/25 16:51 Blood Culture - Preliminary
Blood/Venous No Growth in 72 hours- Final report to follow
09/23/25 16:52 Blood Culture - Preliminary
Blood/Venous No Growth in 72 hours- Final report to follow
09/23/25 15:52 Urine Culture - Final
Urine Staph aureus MRSA
Therapeutic Drug Monitoring
Random Vancomycin 9.1 ug/ml 09/27/25 07:17
--- NOTE | 2025-09-27 10:14 | CON.NEURO4 ---
Addendum entered and electronically signed by Hua Hopkins MD 09/27/25 21:49:
MRI of the brain without contrast was done on 09/26/2025 that showed a few scattered tiny nonhemorrhagic acute/subacute infarcts within the bilateral periventricular/centrum semiovale regions and another within the left cerebellum.
The multiple, bilateral, small acute/subacute infarcts seen on the MRI of the brain without contrast appear to be embolic, however, the source of emboli is undetermined at this time. Therefore, will get an echocardiogram along with an extended
cardiac monitoring as an outpatient by Holter monitor. There is no history of seizure reported prior to admission.
The dose of Coumadin will be adjusted to bring the INR in therapeutic range. The issue of noncompliance with medications also needs to be considered.
Continue Aricept, Lexapro and Keppra.
Discussed with Dr. Jose Christie.
Addendum entered and electronically signed by Hua Hopkins MD 09/27/25 21:37:
The patient was seen and examined along with the nurse practitioner Lizz Fine, and I agree with her assessment and management plan. I personally performed the medical decision making for this encounter and given below is my assessment and
management plan.
This is a 70-year-old male with a past medical history of antiphospholipid syndrome on Coumadin (INR was subtherapeutic), seizures on Keppra, CVA, vascular dementia, hyperlipidemia and hypertension, who has presented to the hospital on 09/23/25 with
report of persistent confusion and worsening weakness. Patient has been evaluated by our inpatient Neurology service in the past for acute stroke in the setting of subtherapeutic INR. The patient's family members were not available to provide the
history to assess his baseline mental status and he did not want us to call his son to get information.
Neurologic Examination: The patient is alert and is oriented to his name but he does not know his age and he also does not know the month of the year. The patient speech is clear and the cranial nerves II to XII are grossly intact. The patient
appears to have antigravity strength in all extremities and limb ataxia was not seen.
It is to be noted that the neurologic examination was limited because patient was not able to cooperate with neurologic examination.
Plan is to get MRI of the brain with and without contrast. Will try to keep the INR in the therapeutic range.
Discussed with Dr. Jose Christie.
Original Note:
Consultation - Neurology 4
-
CONSULTING PHYSICIAN: Hua Hopkins MD
REFERRING PHYSICIAN: Hospitalists/Dr. Christie
DICTATED BY: DAVDISON [place]
DATE/TIME OF REQUEST: 09/27/25
DATE/TIME OF CONSULTATION: 09/27/25
Reason for Consultation: Confusion
History of Present Illness:
This is a 70-year-old male who has presented to the hospital on 09/23/25 with report of persistent confusion and worsening weakness. Patient has been evaluated by our inpatient Neurology service several times in the past for acute stroke in the
setting of subtherapeutic INR.
From previous evaluation by Neurology Dr. Hopkins on 07/19/25:
'This is a 70year old male with a past medical history of antiphospholipid syndrome on coumadin and CVA with mild residual right-sided weakness, vascular dementia, hypertension and hyperlipidemia, who presented to the hospital because while taking
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 According to the patient there was a concern for having a new stroke, however, the patient does not appear to have a new deficit. The patient was on coumadin at
home and his INR was subtherapeutic at 1.14 yesterday. According to the patient's son he was taking his medications including Coumadin. MRI brain done on 01/29/25 showed a small acute cortical and subcortical left frontal lobe infarcts. He also has a
history of seizure and is supposed to be on Keppra 500 mg twice daily, but his son said that he was taking it once a day. The patient denies headache, dizziness, chest pain, fever, chills, nausea, vomiting and diarrhea.
The CT head did not show acute intracranial abnormality noted. No acute intracranial hemorrhage.'
Patient was hospitalized at [facility] about a month ago with sepsis, UTI, agitation and was ultimately discharged to [facility]. Blood work at rehab demonstrated a subtherapeutic INR of 1.3 and hemoglobin of 7.7 His mental status had been
worsening; he was more confused and weak, prompting him to be sent to the ER on 09/23/25. CT head was obtained on arrival and is negative for any acute abnormalities. MRI brain was ultimately obtained and demonstrates a few tiny scattered subacute
ischemic infarcts in bilateral centrum semiovale and within the left cerebellum. Patient is currently confused and minimally cooperative. He does not known why he is here and offers no complaints. His Coumadin has been on hold for 3 days given
significant anemia.
Past Medical History: A-fib, dementia with behavioral disturbance, history of strokes, seizure disorder, antiphospholipid syndrome on warfarin, thrombocytopenia, right cerebellopontine angle arachnoid cyst, HTN, DLP, CKD, cervical spinal stenosis,
vitamin D deficiency, BATOOL
Surgical History: [place] tooth extraction.
Family History: Reviewed and noncontributory.
Social History: Denies tobacco and illicit drug use. Occasional alcohol.
Allergies: Penicillins.
Home Medications: See below.
Review of Symptoms:
Patient denies any fever, headache, chest pain, shortness of breath, GI or symptoms.
�Per the HPI.�All systems are reviewed negative except above.
Physical Exam:
The patient is afebrile, abdomen is nondistended, breathing is unlabored, skin is warm and dry, no edema.
NIH Stroke Scale:
I performed the NIH stroke scale on the patient on 09/27/25 at 1100. The patient scored 2 points on the NIH stroke scale assessment, which were assigned as follows: See below.
Neurologic Examination:
The patient fluctuates between being awake and alert to being drowsy. He is oriented to name only, not place/time/situation/age. He is able to follow commands and answer questions appropriately but is very uncooperative. There is no aphasia or
dysarthria. On cranial nerve assessment, pupils are 3 mm bilateral, round and reactive to light and accommodation. Visual alanis appear full. Extraocular movements are intact. There is no facial asymmetry. Hearing is intact bilaterally to normal
conversation volume. Tongue palate and uvula are midline. Motor strengths are 5/5 bilateral upper and lower extremities on medical research Roscoe scale. There is no drift or involuntary movement noted. There was no extinction noted on double
simultaneous stimulation. Coordination is intact by finger to nose bilaterally.
Lab Results: See below.
Neuro Imaging:
1. MRI brain 09/27/25: There are a few scattered tiny nonhemorrhagic acute/subacute infarcts within the bilateral periventricular/centrum semiovale regions and another within the left cerebellum.
Differentials for the patient's presentation include:
1. Change in mental status; etiology is likely toxic metabolic encephalopathy. MRI brain demonstrates a new tiny scattered ischemic stroke in bilateral centrum semiovale and left cerebellum, this is possibly contributing to his altered mental
status but is unlikely to be the primary source.
2. Recurrent stroke in the setting of subtherapeutic INR.
Patient has the following risk factors for their symptoms: Subtherapeutic INR, HTN, HLD, dementia, age, hx stroke
IV Tenecteplase/IAT candidacy: Not a candidate for TNK/IAT due to being outside of the time window, low NIHSS.
Recommendations:
-Resume Coumadin when able.
-Carotid ultrasound pending.
-Goal normotension.
-Continue Keppra 500mg every 12 hours.
-LDL goal <70. LDL is pending. Increase home atorvastatin from 20mg to 40mg daily.
-Goal normoglycemia, hbA1c is 5.3.
-Checking blood work for metabolic abnormalities.
-NIHSS and neurological checks per unit guidelines.
-Provide patient with a stroke education packet.
-PT/OT/ST evaluations.
-DVT prophylaxis while off of Coumadin.
Discussed patient care with: Dr. Hopkins, the patient
Vital Signs and Labs
-
Vital Signs and Labs:
Vital Signs
Temp Pulse Resp BP Pulse Ox
97.8 F 63 16 125/70 99
09/27/25 07:25 09/27/25 07:25 09/27/25 07:25 09/27/25 07:25 09/27/25 07:25
Lab Results
09/27/25 07:12
09/27/25 07:12
PT 17.0 Sec (11.4-14.6) H 09/26/25 06:07
INR 1.41 09/26/25 06:07
Sodium 136 mmol/L (135-145) 09/27/25 07:12
Potassium 4.1 mmol/L (3.5-5.1) 09/27/25 07:12
BUN 17 mg/dl (9-20) 09/27/25 07:12
Glucose 86 mg/dl (70-99) 09/27/25 07:12
Calcium 8.7 mg/dl (8.4-10.2) 09/27/25 07:12
Medications
-
Active Medications
Generic Name Dose Route Start Last Admin
Trade Name Freq PRN Reason Stop Dose Admin
Acetaminophen 650 mg 09/23/25 19:40
Acetaminophen 325 Mg Tablet PO 10/21/25 19:39
Q4HPRN PRN
mild pain/[place]/temp> 100.4F
Amlodipine Besylate 10 mg 09/26/25 08:00 09/27/25 09:00
Amlodipine 10 Mg Tablet PO 10/24/25 07:59 10 mg
DAILY ELIDIA Administration
Atorvastatin Calcium 20 mg 09/23/25 19:40 09/26/25 18:24
Atorvastatin (Lipitor) 20 Mg Tablet PO 10/21/25 19:39 20 mg
QPM ELIDIA Administration
Cholecalciferol 50 mcg 09/24/25 08:00 09/27/25 09:00
Cholecalciferol (Vitamin D3) 50 Mcg Tablet (2,000 Units) PO 10/22/25 07:59 50 mcg
DAILY ELIDIA Administration
Donepezil HCl 10 mg 09/23/25 19:40 09/26/25 18:24
Donepezil Hcl 10 Mg Tablet PO 10/21/25 19:39 10 mg
QPM ELIDIA Administration
Escitalopram Oxalate 20 mg 09/24/25 08:00 09/27/25 09:00
Escitalopram 20 Mg Tablet PO 10/22/25 07:59 20 mg
DAILY ELIDIA Administration
Vancomycin HCl 1 each/ Device 0 mls @ 0 mls/hr 09/24/25 09:00
IV
PER PROTOCOL ELIDIA
Protocol
As Directed
Ferric Sodium Gluconate 110 mls @ 110 mls/hr 09/26/25 16:24 09/26/25 18:29
Complex 125 mg/ Sodium IV 09/30/25 14:59 110 mls
Chloride DAILY@1400 ELIDIA Administration
Levetiracetam 500 mg 09/23/25 20:00 09/27/25 09:00
Levetiracetam 500 Mg Regular Release Tablet PO 10/21/25 19:59 500 mg
BID ELIDIA Administration
Ondansetron HCl 4 mg 09/23/25 19:40
Ondansetron 4 Mg/2 Ml Vial IV 10/21/25 19:39
Q6HPRN PRN
nausea and vomiting
Polyethylene Glycol 17 grams 09/23/25 19:40
Polyethylene Glycol Powder 17 Grams Packet PO 10/21/25 19:39
DAILYPRN PRN
constipation
Sodium Chloride 0 flush 09/23/25 21:00
Sodium Chloride 0.9% (Flush) Syringe IV 10/21/25 20:59
PER PROTOCOL ELIDIA
Trazodone HCl 25 mg 09/23/25 22:00 09/25/25 20:41
Trazodone 50 Mg Tablet PO 10/21/25 21:59 25 mg
On Hold: 09/26/25 10:22 HS ELIDIA Administration
Warfarin Sodium 5 mg 09/27/25 18:00
Warfarin 5 Mg Tablet PO 09/27/25 18:01
ONCE@1800 ONE
Home Medications
�Medication �Instructions �Recorded
atorvastatin 20 mg tablet 20 mg PO QPM High Cholesterol 01/26/25
cholecalciferol (vitamin D3) 50 50 mcg PO DAILY Supplement 01/26/25
mcg (2,000 unit) tablet (Vitamin
D3)
escitalopram oxalate 20 mg tablet 20 mg PO DAILY Mental 01/26/25
Health/Anxiety
therapeutic multivitamin 1 tab PO DAILY Supplement 01/26/25
acetaminophen 325 mg tablet 650 mg PO Q6HPRN PRN mild pain 09/23/25
(Tylenol)
amlodipine 10 mg tablet (Norvasc) 10 mg PO DAILY Blood Pressure 09/23/25
bisacodyl 10 mg rectal suppository 10 mg WI DAILYPRN PRN if no bm 09/23/25
(Dulcolax (bisacodyl)) aftr mom
donepezil 10 mg tablet 10 mg PO QPM Neurological Condition 09/23/25
levetiracetam 500 mg tablet 500 mg PO BID Seizures 09/23/25
polyethylene glycol 3350 17 gram 17 g PO DAILYPRN PRN constipation 09/23/25
oral powder packet (Miralax)
sodium phosphates 19 gram-7 118 ml WI DAILYPRN PRN if no bm 09/23/25
gram/118 mL enema (Fleet Enema) aftr dulcolax
trazodone 50 mg tablet 25 mg PO HS Sleep 09/23/25
NIH Stroke Score
Subsequent NIH Scale
Date of Subsequent NIH Scale: 09/27/25
Time of Subsequent NIH Scale: 11:00
NIH Stroke Score
Level of Consciousness: 0 - Alert
LOC Questions: 2-Neither correct
LOC Commands: 0-Performs both correctly
Best Horizontal Gaze: 0-Normal
Visual Alanis: 0=Normal, no visual loss
Facial Palsy: 0=Normal, symmetrical
Motor - Right Arm: 0=No drift 10 seconds
Motor - Left Arm: 0=No drift 10 seconds
Motor - Right Le-No drift 5 seconds
Motor - Left Le-No drift 5 seconds
Limb Ataxia: 0-Absent
Sensation: 0-Normal
Best Language: 0-No aphasia
Dysarthria: 0-Normal
Extinction and Inattention: 0-No abnormality
NIH Total Score:: 2
Modified Sumner (mRS) Score
Modified Moises Scale (mRS): Moderate disability. Requires some help, able to walk unassisted.
Score: 3
Alteplase Contraindication
Inclusion and Exclusion criteria reviewed: Yes
Reasons for NON-Tx with Thrombolytics ABSOLUTE Exclusions: Greater than 4.5 hrs from onset of sxs
IAT Contraindications: NIHSS < 6
[2025-09-27] MEDS: VANCOCIN 200 IV (10:46)
--- NOTE | 2025-09-27 11:20 | W.PN.NEPH.PH ---
Today's Communication / Plan
-
Waiting for autoimmune workup to be completed
Creatinine stable at 1.6
Assessment/Plan
-
Impression:
ADOLFO
CKD 3b (1.4.-18)
Presentation with weakness/mental status changes
History of antiphospholipid antibody syndrome
History of cognitive impairment and behavioral disorder
Anemia
Thrombocytopenia
Hypertension
History of seizure disorder
left kidney stones non obst
Plan:
ADOLFO: cr improving to 1.6 likely baseline
Urinalysis notes 4+ blood and 3+ albumin urine, U PCR 1.2gm/gm of cr
pending autoimmune GN workup as well as dysproteinemia workup (anemia), complements normal, ASO neg
- Check postvoid bladder scan to assure there is no obstructive component
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
follow h/h improving post PRBC, fe sat only 12% start IV fe course
IV abx for UTI per primary
labs in am
d/w pt, MS seem better today. s/p MRI brain no acute findings
-
-
Date of Service: September 27, 2025
CC / HPI / ROS
-
Chief Complaint:
ADOLFO with CKD
History of Present Illness:
cr down to 1.6 baseline
BP stable , no fever
hb low 8.8s/p PRBC better 09/25
Review of Systems:
offers no pain or sob
no abd pain
no fever
Labs
-
Labs:
WBC 3.5 10^3/uL (4.8-10.8) L 09/27/25 07:12
RBC 3.45 10^6/uL (4.70-6.10) L 09/27/25 07:12
Hgb 9.8 g/dL (13.0-18.0) L 09/27/25 07:12
Hct 29.9 % (39.0-52.0) L 09/27/25 07:12
Plt Count 86 10^3/uL (130-400) L 09/27/25 07:12
Sodium 136 mmol/L (135-145) 09/27/25 07:12
Potassium 4.1 mmol/L (3.5-5.1) 09/27/25 07:12
Chloride 105 mmol/L (98-107) 09/27/25 07:12
Carbon Dioxide 27 mmol/L (22-30) 09/27/25 07:12
BUN 17 mg/dl (9-20) 09/27/25 07:12
Creatinine 1.6 mg/dL (0.7-1.3) H 09/27/25 07:12
eGFR 46.06 09/27/25 07:12
Glucose 86 mg/dl (70-99) 09/27/25 07:12
Calcium 8.7 mg/dl (8.4-10.2) 09/27/25 07:12
Albumin 3.5 g/dl (3.5-5.0) 09/23/25 14:18
Physical Exam
-
Vital Signs:
Vital Signs
Temp Pulse Resp BP Pulse Ox
97.8 F 63 16 125/70 99
09/27/25 07:25 09/27/25 07:25 09/27/25 07:25 09/27/25 07:25 09/27/25 07:25
Cardiovascular:: Regular rate and rhythm
Respiratory:: Bilateral: CTA (decreased)
Lung Excursion:: Normal
Abdomen:: Nontender and Soft
Extremity Edema:: None: Bilateral:
Benjamin Catheter: No
--- NOTE | 2025-09-27 12:36 | CON.ONC ---
Consultation
-
Date Consultation Requested: 09/27/25
Date Consultation Performed: 09/27/25
Requesting Provider: Jose Christie
Performing Provider: Dr. Aguayo
Reason for Consultation: anemia
Impression
Impression
acute / chronic renal failure
CKD
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 Acuna - hematology [place]
anemia - acute/ chronic
thrombocytopenia - chronic w/ baseline - 70-90,000
leukopenia - chronic w/ baseline [id number]
positive ETHAN
seizure disorder
cognitive dementia
Plan
Plan
1. Anemia - the etiology of this patient's anemia may be mulfifactorial in nature. Review of prior blood work demonstrates a chronic anemia, now w/ slightly low hemoglobin - in the 9-10g/dl range during recent hospitalization for enterococcal UTI.
Some component of drop in hemoglobin during this hospitalization, my have been dilutional in nature, as it has returned to baseline after just 1 unit PRBCs. He does have CKD which could be a contributing factor affecting erythropoiesis. Furthermore,
he has been on and off multiple medications which can occasinoally cause anemia - including antibiotics, anti-seizure meds, mood stabilizing and pscychiatric meds.
Anemia w/u does not demonstrate hemolysis w/ normal reticulocyte count. Iron studies demonstrate adequate ferritin. An SPEP is pending. Will check B12 and folic acid levels, if they have not been recently evaluated. Would check stools for occult
blood, as he has been on anticoagulation for APS. Consider GI w/u. Follow CBC.
2. APS - w/ h/o CVA - on chronic coumadin
-would resume anticoagulation once evaluated by GI and ok to resume
-heparin gtt or therapeutic lovenox (1mg/kg sq q12) could be utilized as bridge to coumadin
-as per outpt records from Dr. Acuna - goal INR was 2-3
-f/u w/ Dr. Acuna - - [place] [facility]
Will continue to follow with you.
Patient History
History of Present Illness
70y/o male seen in hematology consultation regarding chronic anemia, as well as h/o APS, w/ multiple prior CVAs, on chronic coumadin.
The patient is known to Dr Acuna, [facility], [place]. As per records from Dr. Acuna, the patient experienced his 1st thrombotic event in 2008, w/right middle cerebral artery infart. At that time, w/u included a borderline positive
IgA anticardiolipin antibody, w/ otherwise negative APS profile, and positive ETHAN. In May 2009, w/u revealed a positive IgG beta 2 glycoprotein I antibody, prompting diangosis of APS, resulting in patient being started on coumadin. In 2020, due
to non-compliance w/ coumadin, he was transitioned to eliquis for a brief period of time, prior to being transitioned back to warfarin. He had been followed as recently as July 2025 w/ home INRs through Dr. Acuna office.
Review of labs from Dr. Acuna office notes, demonstrated a chronic mild leukopenia w/ baseline total WBC around [id number], baseline hemoglobin around 12-13g/dl, w/ last CBC from June 2025, and chronic thrombocytopenia - w/ baseline platelet
count 70-80,000 since 2020.
The patient was admitted to [facility] in August w/ agitation, confusion, in the setting of sepsis/ enterococcal UTI/ADOLFO. During that hospitalization, CBCs demonstrated hemoglobin to be slightly lower than baseline 9-10g/dl range, w/
total WBC and platelet counts at baseline.
He is now admitted to [place] from rehab w/ weakness and some confusion, increased from baseline. Labs on admission revealed acute/ chronic kidney insufficiency w/ bump in creatinine to 2.2. W/ hydration, his creatinine has improved to 1.6 today,
which is near his baseline. Hemoglobin on presentation was 8.9g/dl, dropping to 6.8g/dl on 09/25. W/ transfusion, it has increased back to 9.8g/dl today. CBCs during this hospitalization, have demonstrated total WBC and platelet counts to be at
baseline.
Clinically, the patient has slow mentation today. He is aware he is in the hospital and deniee pain. No SOB or chest pain. No abdominal pain. Denies blood in his stool or urine. No fevers or chills.
Past-Medical/Surgical History
PMH:
APS - dx - 2009 - Dr. Acuna - hematology - chronic coumadin
CVA
cognitive dementia
CKD
anemia
thrombocytopenia - chronic dating back at least to 2020
leukopenia - chronic dating back at least to 2020
positive ETHAN
hyperlipidemia
essential hypertension
history of enterococcal UTI
history of seizures
PHS: Reports None and Other
Social History
Denies tobacco or significant alcohol use.
Family History
Family History: Not pertinent
Allergies: PCN
Patient Medication
�Medication �Instructions �Recorded �Confirmed �Last Taken �Type
atorvastatin 20 mg tablet 20 mg PO QPM High Cholesterol 01/26/25 09/23/25 07/23/25 History
cholecalciferol (vitamin D3) 50 50 mcg PO DAILY Supplement 01/26/25 09/23/25 07/23/25 History
mcg (2,000 unit) tablet (Vitamin
D3)
escitalopram oxalate 20 mg tablet 20 mg PO DAILY Mental 01/26/25 09/23/25 07/24/25 History
Health/Anxiety
therapeutic multivitamin 1 tab PO DAILY Supplement 01/26/25 09/23/25 07/23/25 History
acetaminophen 325 mg tablet 650 mg PO Q6HPRN PRN mild pain 09/23/25 09/23/25 Unknown History
(Tylenol)
amlodipine 10 mg tablet (Norvasc) 10 mg PO DAILY Blood Pressure 09/23/25 09/23/25 Unknown History
bisacodyl 10 mg rectal suppository 10 mg ND DAILYPRN PRN if no bm 09/23/25 09/23/25 Unknown History
(Dulcolax (bisacodyl)) aftr mom
donepezil 10 mg tablet 10 mg PO QPM Neurological Condition 09/23/25 09/23/25 Unknown History
levetiracetam 500 mg tablet 500 mg PO BID Seizures 09/23/25 09/23/25 Unknown History
polyethylene glycol 3350 17 gram 17 g PO DAILYPRN PRN constipation 09/23/25 09/23/25 Unknown History
oral powder packet (Miralax)
sodium phosphates 19 gram-7 118 ml ND DAILYPRN PRN if no bm 09/23/25 09/23/25 Unknown History
gram/118 mL enema (Fleet Enema) aftr dulcolax
trazodone 50 mg tablet 25 mg PO HS Sleep 09/23/25 09/23/25 Unknown History
Active Medications
Generic Name Dose Route Start Last Admin
Trade Name Freq PRN Reason Stop Dose Admin
Acetaminophen 650 mg 09/23/25 19:40
Acetaminophen 325 Mg Tablet PO 10/21/25 19:39
Q4HPRN PRN
mild pain/[place]/temp> 100.4F
Amlodipine Besylate 10 mg 09/26/25 08:00 09/27/25 09:00
Amlodipine 10 Mg Tablet PO 10/24/25 07:59 10 mg
DAILY ELIDIA Administration
Atorvastatin Calcium 40 mg 09/27/25 18:00
Atorvastatin (Lipitor) 40 Mg Tablet PO 10/25/25 17:59
QPM ELIDIA
Cholecalciferol 50 mcg 09/24/25 08:00 09/27/25 09:00
Cholecalciferol (Vitamin D3) 50 Mcg Tablet (2,000 Units) PO 10/22/25 07:59 50 mcg
DAILY ELIDIA Administration
Donepezil HCl 10 mg 09/23/25 19:40 09/26/25 18:24
Donepezil Hcl 10 Mg Tablet PO 10/21/25 19:39 10 mg
QPM ELIDIA Administration
Escitalopram Oxalate 20 mg 09/24/25 08:00 09/27/25 09:00
Escitalopram 20 Mg Tablet PO 10/22/25 07:59 20 mg
DAILY ELIDIA Administration
Vancomycin HCl 1 each/ Device 0 mls @ 0 mls/hr 09/24/25 09:00
IV
PER PROTOCOL ELIDIA
Protocol
As Directed
Ferric Sodium Gluconate 110 mls @ 110 mls/hr 09/26/25 16:24 09/26/25 18:29
Complex 125 mg/ Sodium IV 09/30/25 14:59 110 mls
Chloride DAILY@1400 ELIDIA Administration
Levetiracetam 500 mg 09/23/25 20:00 09/27/25 09:00
Levetiracetam 500 Mg Regular Release Tablet PO 10/21/25 19:59 500 mg
BID ELIDIA Administration
Ondansetron HCl 4 mg 09/23/25 19:40
Ondansetron 4 Mg/2 Ml Vial IV 10/21/25 19:39
Q6HPRN PRN
nausea and vomiting
Polyethylene Glycol 17 grams 09/23/25 19:40
Polyethylene Glycol Powder 17 Grams Packet PO 10/21/25 19:39
DAILYPRN PRN
constipation
Sodium Chloride 0 flush 09/23/25 21:00
Sodium Chloride 0.9% (Flush) Syringe IV 10/21/25 20:59
PER PROTOCOL ELIDIA
Trazodone HCl 25 mg 09/23/25 22:00 09/25/25 20:41
Trazodone 50 Mg Tablet PO 10/21/25 21:59 25 mg
On Hold: 09/26/25 10:22 HS ELIDIA Administration
Warfarin Sodium 5 mg 09/27/25 18:00
Warfarin 5 Mg Tablet PO 09/27/25 18:01
ONCE@1800 ONE
Review of Systems
-
A limited ROS was performed w/ pertinent findings as per HPI.
Physical Exam
-
General: No Apparent Distress and Appears Chronically Ill
HEENT: Negative Jaundice
Cardiology: Normal Sinus Rhythm
Pulmonary: Clear
GI: Soft
Extremities: No C/C/E
Neurology: Other (slow mentation - oriented to person/ place)
Labs
Lab Results
WBC 3.5 10^3/uL (4.8-10.8) L 09/27/25 07:12
RBC 3.45 10^6/uL (4.70-6.10) L 09/27/25 07:12
Hgb 9.8 g/dL (13.0-18.0) L 09/27/25 07:12
Hct 29.9 % (39.0-52.0) L 09/27/25 07:12
MCV 86.7 fL (80.0-94.0) 09/27/25 07:12
MCH 28.4 pg (27.0-31.0) 09/27/25 07:12
MCHC 32.8 g/dL (33.0-37.0) L 09/27/25 07:12
RDW 15.9 % (11.5-14.5) H 09/27/25 07:12
Plt Count 86 10^3/uL (130-400) L 09/27/25 07:12
MPV 11.5 fL (7.4-10.4) H 09/27/25 07:12
Abs Immat Gran (auto) 0.0 10^3/uL (0-0.05) 09/23/25 14:18
Absolute Neuts (auto) 3.4 10^3/uL (1.4-6.5) 09/23/25 14:18
Absolute Lymphs (auto) 0.7 10^3/uL (1.2-3.4) L 09/23/25 14:18
Absolute Monos (auto) 0.5 10^3/uL (0.1-0.6) 09/23/25 14:18
Absolute Eos (auto) 0.1 10^3/uL (0-0.7) 09/23/25 14:18
Absolute Basos (auto) 0.0 10^3/uL (0-0.2) 09/23/25 14:18
Immature Gran % 0.4 % (0-0.5) 09/23/25 14:18
Neutrophils % 72.8 % (42.2-75.2) 09/23/25 14:18
Lymphocytes % 14.3 % (20.5-51.1) L 09/23/25 14:18
Monocytes % 10.6 % (1.7-9.3) H 09/23/25 14:18
Eosinophils % 1.3 % (0-6) 09/23/25 14:18
Basophils % 0.6 % (0-2) 09/23/25 14:18
Creatinine 1.6 mg/dL (0.7-1.3) H 09/27/25 07:12
Vital Signs
Vital Signs
Temp Pulse Resp BP Pulse Ox
97.8 F 63 16 125/70 99
09/27/25 07:25 09/27/25 07:25 09/27/25 07:25 09/27/25 07:25 09/27/25 07:25
[2025-09-27 13:00] VITALS: BP 118/62; PULSE 66; O2SAT 98
[2025-09-27] MEDS: FERRLECIT 110 MG IV (13:37)
[2025-09-27 14:18] VITALS: BP 118/62; PULSE 64; O2SAT 97
[2025-09-27 14:37] LABS: Folate 6.0 ng/ml (2.76-20); Vitamin B12 892 pg/ml (239-931)
[2025-09-27] MEDS: LOVENOX 60 MG SC (14:46)
--- NOTE | 2025-09-27 15:05 | W.PN.HOSP.TC ---
Today's Communication/Plan
-
see note
Assessment / Plan
Assessment / Plan
1. Acute kidney injury - Improving
- Patient creatinine of 1.2 in August 10. Came in with creatinine of 2.2 > trended down to 1.8
- Reason for patient worsening renal function remains unclear although patient have antiphospholipid antibody syndrome and is prone to get renal dysfunction
- Medication reviewed and not on any nephrotoxic medication
- Stop further IVF
- Bladder scan ordered
- Nephrology help appreciated and have sent further surgical workup to rule out any underlying CKD
2. Toxic metabolic encephalopathy - Improving
History of cognitive impairment and behavioral issue
- Patient overall is somnolent in the ER, waking up with answering some questions appropriately
- Maintained on donepezil. Continue on Keppra for now
- CT head has been negative. MRI brain showing new cva
- Patient no history of seizures although none reported. Continue monitoring
- MRI Brain ordered to r/o stroke
- Stopping nighttime trazodone as may be causing day time somnolence
3. Acute/subacute CVA
- MR brain showing few scattered tiny nonhemorrhagic acute/subacute infarcts within the bilateral periventricular/centrum semiovale regions and another within the left cerebellum.
- Carotid Doppler negative for any critical stenosis
- Neurology/hematology evaluated. Starting patient on weight-based Lovenox with bridging to warfarin
4. MRSA Urinary tract infection
Sepsis -metabolic encephalopathy secondary to urinary tract infection
- Patient had recent enterococcal UTI last month
- Urine culture - growing staphylococcus / blood culture pending
- Patient urine culture growing MRSA, maintain on IV vancomycin.
- Renal bladder ultrasound did not show any acute abnormality.
5. Antiphospholipid antibody syndrome
- Per long-term records patient was not on warfarin?
- Usually patient on warfarin with APLS although has been sub-therapeutic and I personally reviewed long-term records and patient was not on warfarin?
- Oxy consulted for help. Recommended to initiate anticoagulation
6. Acute on chronic normocytic anemia
- Patient hemoglobin has drifted down from 13 to 8.6 this visit. Of note hemoglobin was 7.7 on 09/20 in SNF
- Stool test neg for occult blood in ER. GI is not concerned of having new active bleeding
- Ferritin of 415 in SNF, in ER - Serum iron 34, Iron sat 12, Ferritin 263, LDH 163, Normal T kina
- CT a/p ruled out any intra-abdominal bleeding source.
- S/p 1 unit PRBC on 09/25.
- Repeat stool test for occult bleeding has been ordered to rule out any episodic nature of bleed
7. Generalized weakness
- According to family not doing well despite being in rehab for last 3-4 weeks
- As mentioned about ruling out occult bacteremia/Infection. Anemia also possibly playing role
- Patient not participating with physical therapy, discussed with MPOA and requested to be present if possible tomorrow
8. Essential HTN
- resume back home norvasc
9. Thrombocytopenia
- Chronic in nature. Reason unclear. H/o of ITP?
10. History of seizure
History of stroke
- Maintain on home dose of atorvastatin/Keppra
11. Ruled out dysphagia
- ST cleared for reg diet
Full code
Complex medical care and issues as above.
Medical power of erisa attorney Megan updated over the phone 09/26 and 09/27
Discussed care plan with gastroenterology/hematology
Anticipated Discharge: > 48 hours
Subjective/Interval History
-
Date of Service: September 27, 2025
remains somnolent with waking up on verbal cue
no new issues reported
Objective Data
-
Labs:
Laboratory Results
09/27/25
07:12
WBC 3.5 L
Hgb 9.8 L
Hct 29.9 L
Plt Count 86 L
Sodium 136
Potassium 4.1
Chloride 105
Carbon Dioxide 27
BUN 17
Creatinine 1.6 H
Glucose 86
Calcium 8.7
Vital Signs:
Vital Signs
Temp Pulse Resp BP Pulse Ox
97.8 F 63 16 125/70 99
09/27/25 07:25 09/27/25 07:25 09/27/25 07:25 09/27/25 07:25 09/27/25 07:25
I&O
09/26/25 09/27/25 09/28/25
06:59 06:59 06:59
Intake Total 970 / 970 780 / 780
Output Total 900 / 900 350 / 350
Balance 70 / 70 430 / 430
Review of Systems
-
Respiratory: Reports No Symptoms
Cardiac: Reports No Symptoms
Abdomen/GI: Reports No Symptoms
Physical Exam
-
HEENT: Negative Oxygen
Respiratory: Clear to Auscultation
GI: Soft, Nontender and Nondistended
Neuro: Awake and Alert; Negative Oriented
Psych: Calm
[2025-09-27 15:13] VITALS: BP 106/58
--- NOTE | 2025-09-27 16:31 | CM ---
PT indicates SNF.
Megan his friend said she wants him at home with Margarito [facility]EW[facility] .
She will arrange care givers.
She will transport home/
PLAN Home with Margarito [phone]
[2025-09-27] MEDS: ARICEPT 10 MG PO (16:52)
[2025-09-27] MEDS: LIPITOR 40 MG PO (16:52)
[2025-09-27] MEDS: COUMADIN 5 MG PO (16:53)
[2025-09-27 23:17] VITALS: BP 126/74
[2025-09-28] MEDS: LOVENOX 60 MG SC ×3 (01:15→20:08)
[2025-09-28 07:18] LABS: Hematocrit 28.4 % (39.0-52.0); Hemoglobin 9.7 g/dL (13.0-18.0); Mean Corp Hgb Conc. 34.2 g/dL (33.0-37.0); Mean Corpuscular Volume 84.3 fL (80.0-94.0); Platelet Count 81 10^3/uL (130-400); Red Cell Dist. Width 15.9 % (11.5-14.5)
[2025-09-28 07:39] LABS: INR 1.60; PT 19.2 Sec (11.4-14.6)
[2025-09-28 07:56] VITALS: BP 123/73
[2025-09-28 09:02] LABS: Blood Urea Nitrogen 16 mg/dl (9-20); Calcium 8.7 mg/dl (8.4-10.2); Carbon Dioxide 22 mmol/L (22-30); Chloride 107 mmol/L (98-107); Estimated Creatinine Clearance 39 ml/min; Glucose 86 mg/dl (70-99); Potassium 4.2 mmol/L (3.5-5.1); Sodium 137 mmol/L (135-145); eGFR 49.77
--- NOTE | 2025-09-28 09:08 | PHA.VAN.FU ---
Vancomycin Assessment / Plan
- Assessment
Renal Function: Stable
WBC's are: WNL
In the past 24 hrs, patient has been: Afebrile
- Assessment - Therapeutic Drug Monitoring
Random Level: 16.3 - drawn ~20H after previous dose of 1000mg
- Dosing Plan
Dosing by Level: Re-dose today (Vanc 1250mg at 1800)
Patient with prolonged half-life
However, based on today's level, may fall to subtherapeutic level by tomorrow AM
Will re-dose tonight and tentatively plan for next level Tuesday
- Monitoring Plan
No level(s) ordered at this time: consider random for Tuesday
- Follow Up
Pharmacy will continue to follow.
Vancomycin Follow UP
- -
Patient Age: 70
Patient Sex: Male
Vancomycin Day #: 5
Indication: Genito-Urinary Tract
Requesting Provider: Dr. Aubrey Christie
Pertinent Antimicrobial Allergies:
penicillins - rash
Height / Weight:
Height 5 ft 11 in
Actual Weight 60.47 kg
IBW in k.3
Pertinent Past Medical History: BMI ~18.6
- Vital Signs / Lab Results
Temp Pulse Resp BP Pulse Ox
97.8 F 69 12 123/73 100
09/28/25 07:56 09/28/25 07:56 09/28/25 07:56 09/28/25 07:56 09/28/25 07:56
Lab Results - Hematology
09/25/25 09/26/25 09/27/25
14:12 06:07 07:12
WBC 2.8 L 3.6 L 3.5 L
09/28/25
06:58
WBC 6.9
Lab Results - Chemistry
09/26/25 09/27/25 09/28/25
06:07 07:12 06:58
BUN 20 17 16
Creatinine 1.5 H 1.6 H 1.5 H
Estimated Creat Clear 39 37 39
Microbiology Results
09/23/25 16:51 Blood Culture - Preliminary
Blood/Venous No Growth in 4 days- Final report to follow
09/23/25 16:52 Blood Culture - Preliminary
Blood/Venous No Growth in 4 days- Final report to follow
Therapeutic Drug Monitoring
Random Vancomycin 16.3 ug/ml 09/28/25 06:58
[2025-09-28] MEDS: LEXAPRO 20 MG PO (09:10)
[2025-09-28] MEDS: NORVASC 10 MG PO (09:10)
[2025-09-28] MEDS: KEPPRA 500 MG PO ×2 (09:11→20:08)
[2025-09-28] MEDS: VITAMIN D3 (cholecalciferol) 50 MCG PO (09:11)
--- NOTE | 2025-09-28 10:05 | W.PN.NEPH.PH ---
Today's Communication / Plan
-
Awaiting ANCA serologies
Blood pressure stabilized on current antihypertensive
Creatinine stable at 1.5 based
Assessment/Plan
-
Impression:
ADOLFO
CKD 3b (1.4.-18)
Presentation with weakness/mental status changes
History of antiphospholipid antibody syndrome
History of cognitive impairment and behavioral disorder
Anemia
Thrombocytopenia
Hypertension
History of seizure disorder
left kidney stones non obst
Plan:
ADOLFO: cr improving to 1.5 likely baseline
Blood pressure controlled on antihypertensive regimen
Urinalysis notes 4+ blood and 3+ albumin urine, U PCR 1.2gm/gm of cr
pending autoimmune GN workup as well as dysproteinemia workup (anemia), complements normal, ASO neg
- Check postvoid bladder scan to assure there is no obstructive component
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
follow h/h improving post PRBC, fe sat only 12% start IV fe course
IV abx for UTI per primary
-
-
Date of Service: September 28, 2025
CC / HPI / ROS
-
Chief Complaint:
ADOLFO with CKD
History of Present Illness:
cr down to 1.5 baseline
BP stable , no fever
hb low 8.8s/p PRBC better 09/25
Review of Systems:
offers no pain or sob
no abd pain
no fever
Labs
-
Labs:
WBC 6.9 10^3/uL (4.8-10.8) 09/28/25 06:58
RBC 3.37 10^6/uL (4.70-6.10) L 09/28/25 06:58
Hgb 9.7 g/dL (13.0-18.0) L 09/28/25 06:58
Hct 28.4 % (39.0-52.0) L 09/28/25 06:58
Plt Count 81 10^3/uL (130-400) L 09/28/25 06:58
Sodium 137 mmol/L (135-145) 09/28/25 06:58
Potassium 4.2 mmol/L (3.5-5.1) 09/28/25 06:58
Chloride 107 mmol/L (98-107) 09/28/25 06:58
Carbon Dioxide 22 mmol/L (22-30) 09/28/25 06:58
BUN 16 mg/dl (9-20) 09/28/25 06:58
Creatinine 1.5 mg/dL (0.7-1.3) H 09/28/25 06:58
eGFR 49.77 09/28/25 06:58
Glucose 86 mg/dl (70-99) 09/28/25 06:58
Calcium 8.7 mg/dl (8.4-10.2) 09/28/25 06:58
Albumin 3.5 g/dl (3.5-5.0) 09/23/25 14:18
Physical Exam
-
Vital Signs:
Vital Signs
Temp Pulse Resp BP Pulse Ox
97.8 F 69 12 123/73 100
09/28/25 07:56 09/28/25 07:56 09/28/25 07:56 09/28/25 07:56 09/28/25 07:56
Cardiovascular:: Regular rate and rhythm
Respiratory:: Bilateral: CTA (decreased)
Lung Excursion:: Normal
Abdomen:: Nontender and Soft
Extremity Edema:: None: Bilateral:
Benjamin Catheter: No
--- NOTE | 2025-09-28 13:30 | W.PN.HOSP.TC ---
Today's Communication/Plan
-
Finish course of IV vancomycin 48 hours
Continue bridging to warfarin
Follow-up INR in the morning
Continue physical therapy as possible
Assessment / Plan
Assessment / Plan
1. Acute kidney injury - Improved
- Patient creatinine of 1.2 in August 10. Came in with creatinine of 2.2 > trended down to 1.5
- Reason for patient worsening renal function remains unclear although patient have antiphospholipid antibody syndrome and is prone to get renal dysfunction
- Medication reviewed and not on any nephrotoxic medication
- Stop further IVF
- Bladder scan ordered
- Nephrology help appreciated and have sent further surgical workup to rule out any underlying CKD
2. Toxic metabolic encephalopathy - waxing/waning
History of cognitive impairment and behavioral issue
- Patient overall is somnolent in the ER, waking up with answering some questions appropriately
- Maintained on donepezil.
- CT head has been negative. MRI brain showing new cva
- Patient no history of seizures although none reported in facility. EEG deferred to neuro recommendation
- Stopping nighttime trazodone as may be causing day time somnolence .
- Discussed with neuro and recommending against decreasing Keppra as felt to be less likely contributing to somnolence and also chronic home medication
3. Acute/subacute CVA
- MR brain showing few scattered tiny nonhemorrhagic acute/subacute infarcts within the bilateral periventricular/centrum semiovale regions and another within the left cerebellum.
- Carotid Doppler negative for any critical stenosis
- Neurology/hematology evaluated. Starting patient on weight-based Lovenox with bridging to warfarin
4. MRSA Urinary tract infection
Sepsis -metabolic encephalopathy secondary to urinary tract infection
- Patient had recent enterococcal UTI last month
- Urine culture - growing MRSA, blood cs neg.
- Renal bladder ultrasound did not show any acute abnormality.
- Day 5 on IV vancomycin , will treat more 48hrs and then stop
5. Antiphospholipid antibody syndrome
- Per half-way records patient was not on warfarin?
- Hematology consulted for help recommended bridging patient back to warfarin as no clear signs of bleeding .
6. Acute on chronic normocytic anemia
- Patient hemoglobin has drifted down from 13 to 8.6 this visit. Of note hemoglobin was 7.7 on 09/20 in SNF
- Stool test neg for occult blood in ER. GI is not concerned of having new active bleeding
- Ferritin of 415 in SNF, in ER - Serum iron 34, Iron sat 12, Ferritin 263, LDH 163, Normal T kina
- CT a/p ruled out any intra-abdominal bleeding source.
- S/p 1 unit PRBC on 09/25.
- Repeat stool test for occult bleeding has been ordered to rule out any episodic nature of bleed
7. Generalized weakness
- According to family not doing well despite being in rehab for last 3-4 weeks
- Patient not participating with physical therapy, MPOA present during one of the session and tried to motivate patient although not much help
- MPOA is strongly wanting to have patient return at home with hospital equipment/09/05 private aide. I have discussed personally with patient is likely requiring half-way level care and MPOA wanting to provide some respite to patient before
opting to switch to half-way level care
8. Essential HTN
- resume back home norvasc
9. Thrombocytopenia
- Chronic in nature. Reason unclear. H/o of ITP?
10. History of seizure
History of stroke
- Maintain on home dose of atorvastatin/Keppra
11. Ruled out dysphagia
- ST cleared for reg diet
Full code
Complex medical care and issues as above.
Medical power of private duty nurse Megan updated over the phone 09/26 and 09/27
Anticipated Discharge: 24 - 48 hours
Subjective/Interval History
-
Date of Service: September 28, 2025
no reported new problems
remains responsive with verbal cue and physical stimuli
afebrile overnight
Objective Data
-
Labs:
Laboratory Results
09/28/25
06:58
WBC 6.9
Hgb 9.7 L
Hct 28.4 L
Plt Count 81 L
PT 19.2 H
INR 1.60
Sodium 137
Potassium 4.2
Chloride 107
Carbon Dioxide 22
BUN 16
Creatinine 1.5 H
Glucose 86
Calcium 8.7
Vital Signs:
Vital Signs
Temp Pulse Resp BP Pulse Ox
97.8 F 69 12 123/73 100
09/28/25 07:56 09/28/25 07:56 09/28/25 07:56 09/28/25 07:56 09/28/25 07:56
I&O
09/27/25 09/28/25 09/29/25
06:59 06:59 06:59
Intake Total 780 / 780 3420 / 3420
Output Total 350 / 350
Balance 430 / 430 3420 / 3420
Review of Systems
-
Unable to obtain full review of systems at this time due to: Acuity
Physical Exam
-
HEENT: Negative Oxygen
Respiratory: Clear to Auscultation
GI: Soft, Nontender and Nondistended
Neuro: Awake and Alert; Negative Oriented
Psych: Calm
[2025-09-28] MEDS: FERRLECIT 110 MG IV (13:37)
[2025-09-28 16:00] VITALS: BP 114/61
[2025-09-28 16:47] LABS: Serine Protease-3, IgG 0 AU/mL (0-19)
[2025-09-28] MEDS: VANCOCIN 275 MG IV (17:09)
[2025-09-28] MEDS: LIPITOR 40 MG PO (17:18)
[2025-09-28] MEDS: COUMADIN 5 MG PO (17:18)
[2025-09-28] MEDS: ARICEPT 10 MG PO (17:18)
[2025-09-28 23:33] VITALS: BP 116/65
[2025-09-29 07:23] LABS: INR 1.96; PT 22.5 Sec (11.4-14.6)
[2025-09-29 07:35] LABS: Hematocrit 29.3 % (39.0-52.0); Hemoglobin 9.6 g/dL (13.0-18.0); Mean Corp Hgb Conc. 32.8 g/dL (33.0-37.0); Mean Corpuscular Volume 88.8 fL (80.0-94.0); Platelet Count 64 10^3/uL (130-400); Red Cell Dist. Width 16.2 % (11.5-14.5)
[2025-09-29 08:36] VITALS: BP 123/70
[2025-09-29 08:40] LABS: Blood Urea Nitrogen 16 mg/dl (9-20); Calcium 8.4 mg/dl (8.4-10.2); Carbon Dioxide 23 mmol/L (22-30); Chloride 106 mmol/L (98-107); Estimated Creatinine Clearance 33 ml/min; Glucose 83 mg/dl (70-99); Sodium 138 mmol/L (135-145); eGFR 39.99
[2025-09-29] MEDS: LEXAPRO 20 MG PO (08:58)
[2025-09-29] MEDS: LOVENOX 60 MG SC (08:58)
[2025-09-29] MEDS: KEPPRA 500 MG PO ×2 (08:58→20:53)
[2025-09-29] MEDS: VITAMIN D3 (cholecalciferol) 50 MCG PO (08:58)
[2025-09-29] MEDS: NORVASC 10 MG PO (08:58)
[2025-09-29 09:05] LABS: Potassium 3.8 mmol/L (3.5-5.1)
--- NOTE | 2025-09-29 09:15 | PHA.VAN.FU ---
Vancomycin Assessment / Plan
- Assessment
Renal Function: SCR Increasing
In the past 24 hrs, patient has been: Afebrile
- Dosing Plan
Dosing by Level: Hold off on dosing today
Dosing Comments: last dose received = 09/28 17:09 for 1250mg
- Monitoring Plan
Random Level: 09/30 0600
- Follow Up
Pharmacy will continue to follow.
Vancomycin Follow UP
- -
Patient Age: 70
Patient Sex: Male
Vancomycin Day #: 6
Indication: Genito-Urinary Tract
Requesting Provider: Dr. Aubrey Christie
Pertinent Antimicrobial Allergies:
penicillins - rash
Height / Weight:
Height 5 ft 11 in
Actual Weight 60.47 kg
IBW in k.3
Pertinent Past Medical History: BMI ~18.6
- Vital Signs / Lab Results
Temp Pulse Resp BP Pulse Ox
98.1 F 70 18 123/70 99
09/29/25 08:36 09/29/25 08:58 09/29/25 08:36 09/29/25 08:58 09/29/25 08:52
Lab Results - Hematology
09/27/25 09/28/25 09/29/25
07:12 06:58 05:57
WBC 3.5 L 6.9 3.9 L
Lab Results - Chemistry
09/27/25 09/28/25 09/29/25
07:12 06:58 05:57
BUN 17 16 16
Creatinine 1.6 H 1.5 H 1.8 H
Estimated Creat Clear 37 39 33
Microbiology Results
09/23/25 16:51 Blood Culture - Final
Blood/Venous No Growth - Final Report
09/23/25 16:52 Blood Culture - Final
Blood/Venous No Growth - Final Report
Therapeutic Drug Monitoring
Random Vancomycin 16.3 ug/ml 09/28/25 06:58
--- NOTE | 2025-09-29 12:21 | W.PN.HOSP.TC ---
Today's Communication/Plan
-
stop lovenox
continue on warfarin
f/u INR
finish course of iv vanc
discharge planning
Assessment / Plan
Assessment / Plan
1. Acute kidney injury - Improved
- Patient creatinine of 1.2 in August 10. Came in with creatinine of 2.2 > trended down to 1.5
- Reason for patient worsening renal function remains unclear although patient have antiphospholipid antibody syndrome and is prone to get renal dysfunction
- Medication reviewed and not on any nephrotoxic medication
- Stop further IVF
- Bladder scan ordered
- Nephrology help appreciated - serology sent for Complement/anca/ASO ab neg. UPEP/SPEP pending.
2. Toxic metabolic encephalopathy - waxing/waning
History of cognitive impairment and behavioral issue
- Patient overall is somnolent in the ER, waking up with answering some questions appropriately
- Maintained on donepezil.
- CT head has been negative. MRI brain showing new cva
- Patient no history of seizures although none reported in facility. EEG deferred to neuro recommendation
- Stopping nighttime trazodone as may be causing day time somnolence .
- Discussed with neuro and recommending against decreasing Keppra as felt to be less likely contributing to somnolence and also chronic home medication
3. Acute/subacute CVA
- MR brain showing few scattered tiny nonhemorrhagic acute/subacute infarcts within the bilateral periventricular/centrum semiovale regions and another within the left cerebellum.
- Carotid Doppler negative for any critical stenosis
- Neurology/hematology evaluated. Starting patient on weight-based Lovenox with bridging to warfarin
4. MRSA Urinary tract infection
Sepsis -metabolic encephalopathy secondary to urinary tract infection
- Patient had recent enterococcal UTI last month
- Urine culture - growing MRSA, blood cs neg.
- Renal bladder ultrasound did not show any acute abnormality.
- Day 6 on IV vancomycin , last day tomorrow.
5. Antiphospholipid antibody syndrome
- Per [facility] records patient was not on warfarin?
- Hematology consulted for help recommended bridging patient back to warfarin as no clear signs of bleeding .
6. Acute on chronic normocytic anemia
- Patient hemoglobin has drifted down from 13 to 8.6 this visit. Of note hemoglobin was 7.7 on 09/20 in SNF
- Stool test neg for occult blood in ER. GI is not concerned of having new active bleeding
- Ferritin of 415 in SNF, in ER - Serum iron 34, Iron sat 12, Ferritin 263, LDH 163, Normal T kina
- CT a/p ruled out any intra-abdominal bleeding source.
- S/p 1 unit PRBC on 09/25.
- Hemoglobin remained stable on warfarin/lovenox bridge. monitor.
7. Generalized weakness
- According to family not doing well despite being in rehab for last 3-4 weeks
- Patient not participating with physical therapy, MPOA present during one of the session and tried to motivate patient although not much help
- MPOA is strongly wanting to have patient return at home with hospital equipment/09/05 private aide. I have discussed personally with patient is likely requiring [facility] level care and MPOA wanting to provide some respite to patient before
opting to switch to [facility] level care
8. Essential HTN
- resume back home norvasc
9. Thrombocytopenia
- Chronic in nature. Reason unclear. H/o of ITP?
10. History of seizure
History of stroke
- Maintain on home dose of atorvastatin/Keppra
11. Ruled out dysphagia
- ST cleared for reg diet
Full code
Complex medical care and issues as above.
Medical power of corporate attorney Megan updated over the phone 09/26 and 09/27
Anticipated Discharge: 24 - 48 hours
Subjective/Interval History
-
Date of Service: September 29, 2025
no new complains overnight
mentation wax and wan
Objective Data
-
Labs:
Laboratory Results
09/29/25
05:57
WBC 3.9 L
Hgb 9.6 L
Hct 29.3 L
Plt Count 64 L D
PT 22.5 H
INR 1.96
Sodium 138
Potassium 3.8
Chloride 106
Carbon Dioxide 23
BUN 16
Creatinine 1.8 H
Glucose 83
Calcium 8.4
Vital Signs:
Vital Signs
Temp Pulse Resp BP Pulse Ox
98.1 F 70 18 123/70 99
09/29/25 08:36 09/29/25 08:58 09/29/25 08:36 09/29/25 08:58 09/29/25 08:52
I&O
09/28/25 09/29/25 09/30/25
06:59 06:59 06:59
Intake Total 3420 / 3420 720 / 720
Balance 3420 / 3420 720 / 720
Review of Systems
-
Respiratory: Reports No Symptoms
Cardiac: Reports No Symptoms
Abdomen/GI: Reports No Symptoms
Physical Exam
-
HEENT: Negative Oxygen
Respiratory: Clear to Auscultation
GI: Soft, Nontender and Nondistended
Neuro: Awake and Alert; Negative Oriented
Psych: Calm
--- NOTE | 2025-09-29 12:46 | W.PN.NEPH.PH ---
Today's Communication / Plan
-
observe follow lab work while patient is in hospital
Assessment/Plan
-
Impression:
ADOLFO
CKD 3b (1.4.-18)
MRSAUTI presentation
Presentation with weakness/mental status changes
History of antiphospholipid antibody syndrome
History of cognitive impairment and behavioral disorder
Anemia
Thrombocytopenia
Hypertension
History of seizure disorder
left kidney stones non obst
Plan:
ADOLFO: cr improving up to 1.8 from 1.5, still within baseline
autoimmune serological workup was negative
Blood pressure controlled on antihypertensive regimen
Urinalysis notes 4+ blood and 3+ albumin urine, U PCR 1.2gm/gm of cr
- Checked postvoid bladder scan to assure there is no obstructive component
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
follow h/h improving post PRBC, fe sat only 12% start IV fe course
IV abx for UTI per primary
-
-
Date of Service: September 29, 2025
CC / HPI / ROS
-
Chief Complaint:
ADOLFO with CKD
History of Present Illness:
cr down to 1.8 baseline
BP stable , no fever
hb low 8.8s/p PRBC better 09/25
Review of Systems:
offers no pain or sob
no abd pain
no fever
Labs
-
Labs:
WBC 3.9 10^3/uL (4.8-10.8) L 09/29/25 05:57
RBC 3.30 10^6/uL (4.70-6.10) L 09/29/25 05:57
Hgb 9.6 g/dL (13.0-18.0) L 09/29/25 05:57
Hct 29.3 % (39.0-52.0) L 09/29/25 05:57
Plt Count 64 10^3/uL (130-400) L D 09/29/25 05:57
Sodium 138 mmol/L (135-145) 09/29/25 05:57
Potassium 3.8 mmol/L (3.5-5.1) 09/29/25 05:57
Chloride 106 mmol/L (98-107) 09/29/25 05:57
Carbon Dioxide 23 mmol/L (22-30) 09/29/25 05:57
BUN 16 mg/dl (9-20) 09/29/25 05:57
Creatinine 1.8 mg/dL (0.7-1.3) H 09/29/25 05:57
eGFR 39.99 09/29/25 05:57
Glucose 83 mg/dl (70-99) 09/29/25 05:57
Calcium 8.4 mg/dl (8.4-10.2) 09/29/25 05:57
Albumin 3.5 g/dl (3.5-5.0) 09/23/25 14:18
Physical Exam
-
Vital Signs:
Vital Signs
Temp Pulse Resp BP Pulse Ox
98.1 F 70 18 123/70 99
09/29/25 08:36 09/29/25 08:58 09/29/25 08:36 09/29/25 08:58 09/29/25 08:52
Cardiovascular:: Regular rate and rhythm
Respiratory:: Bilateral: CTA (decreased)
Lung Excursion:: Normal
Abdomen:: Nontender and Soft
Extremity Edema:: None: Bilateral:
Benjamin Catheter: No
[2025-09-29] MEDS: FERRLECIT 110 MG IV (13:40)
[2025-09-29] MEDS: FLUSH (NSS) 1 FLUSH IV (13:40)
[2025-09-29 16:01] VITALS: BP 133/78
--- NOTE | 2025-09-29 16:51 | PTCARENOTE ---
Pt drowsy but arousable to name; alert when awake, oriented to self/occ to place. Verbalizes minimally. Uncooperative at times. ROWLEY randomly; RUE/RLE weak. NIHSS 7- pt inconsistent in responses/does not follow directions correctly. VSS. On room
air- pulse ox 98%, no SOB noted. Abd soft, bre small amts clear liquids- appetite very poor, needs encouragement to take PO meds/fluids. Incont urine. Resting in bed at present. Will continue to monitor.
[2025-09-29] MEDS: ARICEPT 10 MG PO (17:23)
[2025-09-29] MEDS: COUMADIN 5 MG PO (17:23)
[2025-09-29] MEDS: LIPITOR 40 MG PO (17:24)
[2025-09-29 23:46] VITALS: BP 113/53
[2025-09-30 07:00] VITALS: BP 131/72
[2025-09-30 07:37] LABS: INR 2.65; PT 28.5 Sec (11.4-14.6)
[2025-09-30] MEDS: LEXAPRO 20 MG PO (07:44)
[2025-09-30] MEDS: KEPPRA 500 MG PO ×2 (07:44→21:01)
[2025-09-30] MEDS: VITAMIN D3 (cholecalciferol) 50 MCG PO (07:44)
[2025-09-30] MEDS: NORVASC 10 MG PO (07:45)
[2025-09-30 08:04] LABS: Hematocrit 30.9 % (39.0-52.0); Hemoglobin 9.9 g/dL (13.0-18.0); Mean Corp Hgb Conc. 32.0 g/dL (33.0-37.0); Mean Corpuscular Volume 88.5 fL (80.0-94.0); Platelet Count 71 10^3/uL (130-400); Red Cell Dist. Width 16.2 % (11.5-14.5)
[2025-09-30 08:43] LABS: Blood Urea Nitrogen 14 mg/dl (9-20); Calcium 8.8 mg/dl (8.4-10.2); Carbon Dioxide 28 mmol/L (22-30); Chloride 106 mmol/L (98-107); Estimated Creatinine Clearance 35 ml/min; Glucose 94 mg/dl (70-99); Potassium 4.1 mmol/L (3.5-5.1); Sodium 139 mmol/L (135-145); eGFR 42.83
[2025-09-30 10:07] VITALS: BP 125/69; PULSE 61; O2SAT 99
--- NOTE | 2025-09-30 10:12 | PHA.VAN.FU ---
Vancomycin Assessment / Plan
- Assessment
Renal Function: Stable
WBC's are: Stable
In the past 24 hrs, patient has been: Afebrile
- Assessment - Therapeutic Drug Monitoring
Random Level: 14.3 (09/30 at 07:11 AM) - drawn ~38 hours after last dose
- Dosing Plan
Dosing by Level: Re-dose today (Vancomycin 1000 mg (15 mg/kg) x 1 dose)
- Monitoring Plan
No level(s) ordered at this time: if last day of therapy, no further levels needed
- Follow Up
Pharmacy will continue to follow.
Vancomycin Follow UP
- -
Patient Age: 70
Patient Sex: Male
Vancomycin Day #: 7
Indication: Genito-Urinary Tract
Requesting Provider: Dr. Aubrey Christie
Pertinent Antimicrobial Allergies:
penicillins - rash
Height / Weight:
Height 5 ft 11 in
Actual Weight 60.47 kg
IBW in k.3
Pertinent Past Medical History: BMI ~18.6
- Vital Signs / Lab Results
Temp Pulse Resp BP Pulse Ox
97.7 F 66 12 131/72 100
09/30/25 07:00 09/30/25 07:45 09/30/25 07:00 09/30/25 07:45 09/30/25 07:00
Lab Results - Hematology
09/28/25 09/29/25 09/30/25
06:58 05:57 07:12
WBC 6.9 3.9 L 3.5 L
Lab Results - Chemistry
09/28/25 09/29/25 09/30/25
06:58 05:57 07:12
BUN 16 16 14
Creatinine 1.5 H 1.8 H 1.7 H
Estimated Creat Clear 39 33 35
Microbiology Results
09/23/25 16:51 Blood Culture - Final
Blood/Venous No Growth - Final Report
09/23/25 16:52 Blood Culture - Final
Blood/Venous No Growth - Final Report
Therapeutic Drug Monitoring
Random Vancomycin 14.3 ug/ml 09/30/25 07:11
--- NOTE | 2025-09-30 10:41 | W.PN.ONC2 ---
Today's Communication / Plan
-
.
Impression
Impression
acute / chronic renal failure
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 Acuna - hematology [place]
anemia - acute/ chronic
thrombocytopenia - chronic w/ baseline - 70-90,000
leukopenia - chronic w/ baseline [id number]
positive ETHAN
seizure disorder
cognitive dementia
MRSA UTI
Plan
Plan
1. Anemia - the etiology of this patient's anemia may be mulfifactorial in nature. Review of prior blood work demonstrates a chronic anemia, now w/ slightly low hemoglobin - in the 9-10g/dl range during recent hospitalization for enterococcal UTI.
Some component of drop in hemoglobin during this hospitalization, my have been dilutional in nature, as it has returned to baseline after just 1 unit PRBCs. He does have CKD which could be a contributing factor affecting erythropoiesis. Furthermore,
he has been on and off multiple medications which can occasionally cause anemia - including antibiotics, anti-seizure meds, mood stabilizing and psychiatric meds.
Anemia w/u does not demonstrate hemolysis w/ normal reticulocyte count. Iron studies demonstrate adequate ferritin, B12, and folate. An SPEP is pending. Would check stools for occult blood, as he has been on anticoagulation for APS. Consider GI w/u.
Follow CBC. Pt can follow up with PCP or primary boat camp operator for results of SPEP if still pending at discharge
2. APS - w/ h/o CVA - on chronic coumadin -bridged with enoxaparin -INR therapeutic today
-as per outpt records from Dr. Acuna - goal INR was 2-3
-f/u w/ Dr. Acuna - - [facility] [place] [facility]
Subjective/Objective
Subjective
afebrile, no hypoxia or hypotension
Vital Signs:
Vital Signs
Temp Pulse Resp BP Pulse Ox
97.7 F 66 12 131/72 100
09/30/25 07:00 09/30/25 07:45 09/30/25 07:00 09/30/25 07:45 09/30/25 07:00
Lab Results:
Laboratory Data
WBC 3.5 10^3/uL (4.8-10.8) L 09/30/25 07:12
Hgb 9.9 g/dL (13.0-18.0) L 09/30/25 07:12
Plt Count 71 10^3/uL (130-400) L 09/30/25 07:12
PT 28.5 Sec (11.4-14.6) H 09/30/25 07:11
INR 2.65 09/30/25 07:11
eGFR 42.83 09/30/25 07:12
Physical Exam
HEENT: No Jaundice
Pulmonary: Other (unlabored)
--- NOTE | 2025-09-30 11:40 | W.PN.NEPH.PH ---
Today's Communication / Plan
-
follow BMP
Assessment/Plan
-
Impression:
ADOLFO
CKD 3b (1.4.-18)
MRSAUTI presentation
Presentation with weakness/mental status changes
History of antiphospholipid antibody syndrome
History of cognitive impairment and behavioral disorder
Anemia
Thrombocytopenia
Hypertension
History of seizure disorder
left kidney stones non obst
Plan:
follow BMP
IV iron course
lethargy per primary team
-
-
Date of Service: September 30, 2025
CC / HPI / ROS
-
Chief Complaint:
ADOLFO with CKD
History of Present Illness:
cr down to 1.7 baseline
BP stable , no fever
hgb up to 9.9
on IV iron for iron deficiency
Review of Systems:
noncommunicative
Labs
-
Labs:
WBC 3.5 10^3/uL (4.8-10.8) L 09/30/25 07:12
RBC 3.49 10^6/uL (4.70-6.10) L 09/30/25 07:12
Hgb 9.9 g/dL (13.0-18.0) L 09/30/25 07:12
Hct 30.9 % (39.0-52.0) L 09/30/25 07:12
Plt Count 71 10^3/uL (130-400) L 09/30/25 07:12
Sodium 139 mmol/L (135-145) 09/30/25 07:12
Potassium 4.1 mmol/L (3.5-5.1) 09/30/25 07:12
Chloride 106 mmol/L (98-107) 09/30/25 07:12
Carbon Dioxide 28 mmol/L (22-30) 09/30/25 07:12
BUN 14 mg/dl (9-20) 09/30/25 07:12
Creatinine 1.7 mg/dL (0.7-1.3) H 09/30/25 07:12
eGFR 42.83 09/30/25 07:12
Glucose 94 mg/dl (70-99) 09/30/25 07:12
Calcium 8.8 mg/dl (8.4-10.2) 09/30/25 07:12
Albumin 3.5 g/dl (3.5-5.0) 09/23/25 14:18
Physical Exam
-
Vital Signs:
Vital Signs
Temp Pulse Resp BP Pulse Ox
97.7 F 66 12 131/72 97
09/30/25 07:00 09/30/25 07:45 09/30/25 07:00 09/30/25 07:45 09/30/25 11:30
Cardiovascular:: Regular rate and rhythm
Respiratory:: Bilateral: Coarse
Lung Excursion:: Normal
Abdomen:: Nontender and Soft
Bowel Sounds:: Normal
Extremity Edema:: None: Bilateral:
[2025-09-30] MEDS: VANCOCIN 200 IV (12:46)
--- NOTE | 2025-09-30 13:02 | W.PN.HOSP.TC ---
Today's Communication/Plan
-
Assessment / Plan
Assessment / Plan
1. Acute kidney injury - Improved
- Patient creatinine of 1.2 in August 10. Came in with creatinine of 2.2 > trended down to 1.5
- Reason for patient worsening renal function remains unclear although patient have antiphospholipid antibody syndrome and is prone to get renal dysfunction
- Medication reviewed and not on any nephrotoxic medication
- Stop further IVF
- Bladder scan ordered
- Nephrology help appreciated - serology sent for Complement/anca/ASO ab neg. UPEP/SPEP pending.
2. Toxic metabolic encephalopathy - waxing/waning
History of cognitive impairment and behavioral issue
- Patient overall is somnolent in the ER, waking up with answering some questions appropriately
- Maintained on donepezil.
- CT head has been negative. MRI brain showing new cva
- Patient no history of seizures although none reported in facility. EEG deferred to neuro recommendation
- Stopping nighttime trazodone as may be causing day time somnolence .
- Discussed with neuro and recommending against decreasing Keppra as felt to be less likely contributing to somnolence and also chronic home medication
3. Acute/subacute CVA
- MR brain showing few scattered tiny nonhemorrhagic acute/subacute infarcts within the bilateral periventricular/centrum semiovale regions and another within the left cerebellum.
- Carotid Doppler negative for any critical stenosis
- Neurology/hematology evaluated. Starting patient on weight-based Lovenox with bridging to warfarin
4. MRSA Urinary tract infection
Sepsis -metabolic encephalopathy secondary to urinary tract infection
- Patient had recent enterococcal UTI last month
- Urine culture - growing MRSA, blood cs neg.
- Renal bladder ultrasound did not show any acute abnormality.
- Day 6 on IV vancomycin , last day tomorrow.
5. Antiphospholipid antibody syndrome
- [facility] not [facility]?
- Hematology consulted for help recommended bridging patient back to warfarin as no clear signs of bleeding .
6. Acute on chronic normocytic anemia
- Patient hemoglobin has drifted down from 13 to 8.6 this visit. Of note hemoglobin was 7.7 on 09/20 in SNF
- Stool test neg for occult blood in ER. GI is not concerned of having new active bleeding
- Ferritin of 415 in SNF, in ER - Serum iron 34, Iron sat 12, Ferritin 263, LDH 163, Normal T kina
- CT a/p ruled out any intra-abdominal bleeding source.
- S/p 1 unit PRBC on 09/25.
- Hemoglobin remained stable on warfarin/lovenox bridge. monitor.
7. Generalized weakness
- According to family not doing well despite being in rehab for last 3-4 weeks
- Patient not participating with physical therapy, MPOA present during one of the session and tried to motivate patient although not much help
- MPOA is strongly wanting to have patient return at home with hospital equipment/09/05 private aide. I have discussed personally with patient is likely requiring [facility] care and MPOA wanting to provide some respite to patient before
opting to switch to [facility] care
8. Essential HTN
- resume back home norvasc
9. Thrombocytopenia
- Chronic in nature. Reason unclear. H/o of ITP?
10. History of seizure
History of stroke
- Maintain on home dose of atorvastatin/Keppra
11. Ruled out dysphagia
- ST cleared for reg diet
Full code
Complex medical care and issues as above.
I discussed case with medical power of trade mark attorney at [facility] on 09/30/2025.
Informed her that he is medically cleared for discharge. Advance his diet. Unclear why hemoglobin trended down. Probably a lab error. S/p 1 unit PRBC. Hemoglobin stable.
[facility] nursing will be set up for tomorrow
Anticipated Discharge: Within 24 hours
Subjective/Interval History
-
Date of Service: September 30, 2025
seen and examibed. no new complaints. no acute overnight events
Objective Data
-
Labs:
Laboratory Results
09/30/25 09/30/25
07:11 07:12
WBC 3.5 L
Hgb 9.9 L
Hct 30.9 L
Plt Count 71 L
PT 28.5 H
INR 2.65
Sodium 139
Potassium 4.1
Chloride 106
Carbon Dioxide 28
BUN 14
Creatinine 1.7 H
Glucose 94
Calcium 8.8
Vital Signs:
Vital Signs
Temp Pulse Resp BP Pulse Ox
97.7 F 66 12 131/72 97
09/30/25 07:00 09/30/25 07:45 09/30/25 07:00 09/30/25 07:45 09/30/25 11:30
I&O
09/29/25 09/30/25 10/01/25
06:59 06:59 06:59
Intake Total 720 / 720 830 / 830 120 / 120
Balance 720 / 720 830 / 830 120 / 120
Physical Exam
-
General: No Apparent Distress and Comfortable
HEENT: Normocephalic and Atraumatic
Respiratory: Clear to Auscultation
Cardiac: Regular Rhythm
GI: Soft, Nontender, Nondistended and Normal Bowel Sounds
Musculoskeletal: No Clubbing
Skin: Warm and Dry
Neuro: AO x 3
Hematologic / Lymphatic: Lymphadenopathy
Psych: Depressed
[2025-09-30] MEDS: FERRLECIT 110 MG IV (14:23)
[2025-09-30 15:00] VITALS: BP 134/56
--- NOTE | 2025-09-30 16:50 | CM ---
PT indicates SNF.
Spoke with patient in room . He requested Home with Margarito STEWART
Megan his friend said she wants him at home with Margarito STEWART .
She will arrange care givers.
She will transport home/
PLAN Home with Margarito [phone]
[2025-09-30] MEDS: COUMADIN 5 MG PO (17:39)
[2025-09-30] MEDS: ARICEPT 10 MG PO (17:39)
[2025-09-30] MEDS: LIPITOR 40 MG PO (17:39)
[2025-09-30 23:42] LABS: Albumin 2.30 g/dL (3.75-5.01); SPEP IFE Reflex Not Done; Total Protein-Electrophoresis 5.8 g/dL (6.3-8.2)
[2025-09-30 23:50] VITALS: BP 117/60
[2025-10-01 07:15] VITALS: BP 124/75
[2025-10-01 07:55] LABS: Hematocrit 31.3 % (39.0-52.0); Hemoglobin 10.2 g/dL (13.0-18.0); Mean Corp Hgb Conc. 32.6 g/dL (33.0-37.0); Mean Corpuscular Volume 87.2 fL (80.0-94.0); Nucleated Red Blood Cells % 0 % (-); Platelet Count 82 10^3/uL (130-400); Red Cell Dist. Width 16.2 % (11.5-14.5)
[2025-10-01 08:28] LABS: Blood Urea Nitrogen 17 mg/dl (9-20); Calcium 9.0 mg/dl (8.4-10.2); Carbon Dioxide 26 mmol/L (22-30); Chloride 107 mmol/L (98-107); Estimated Creatinine Clearance 35 ml/min; Glucose 95 mg/dl (70-99); Potassium 4.1 mmol/L (3.5-5.1); Sodium 139 mmol/L (135-145); eGFR 42.83
[2025-10-01] MEDS: KEPPRA 500 MG PO (08:46)
[2025-10-01] MEDS: LEXAPRO 20 MG PO (08:46)
[2025-10-01] MEDS: NORVASC 10 MG PO (08:46)
[2025-10-01] MEDS: FLUSH (NSS) 1 FLUSH IV (08:47)
[2025-10-01] MEDS: VITAMIN D3 (cholecalciferol) 50 MCG PO (08:47)
--- NOTE | 2025-10-01 09:29 | W.PN.UPDATE ---
Update Note
Progress Note Update
CBC stable.
Patient can f/u with outpatient call or contact centre manager, Dr. Acuna
Hematology will sign off.
--- NOTE | 2025-10-01 12:26 | W.DCSUMMARY ---
Discharge Summary
Discharge Data
Date of Admission: 09/23/25
Date of Discharge: 10/01/25
-
Pending Results: No
Hospital Course
70-year-old male with past medical history of antiphospholipid antibody syndrome on warfarin, history of stroke, history of dementia, hyperlipidemia, essential hypertension, history of enterococcal UTI, history of seizures
Presented with persistent confusion worsening generalized weakness and was also found to be anemic to 7.7 with a creatinine around 2.1. Admitted for toxic metabolic encephalopathy for which an MRI was completed that demonstrated nonhemorrhagic
acute/subacute infarcts within the bilateral periventricular/centrum semiovale regions and another within the left cerebellum. Seen by neurology recommended to keep Coumadin with in goal range of 2-3 along with continuation of Aricept Lexapro and
Keppra. It should be noted initially suspected toxic metabolic encephalopathy was secondary to MRSA UTI for which received total 7 days of IV vancomycin. Once, stroke was diagnosed and completed 7 days of IV antibiotics there was not a significant
improvement in his mental status however he was oriented to person and place but was withdrawn and poor eye contact therefore leading me to believe there is a large component of depression. Will need to follow-up with outpatient PCP to continue to
adjust antidepressants. Trazodone has been held while being inpatient due to increased daytime somnolence that was related to this agent.
Additionally, treated for acute kidney injury with an improvement in renal function after being provided IV fluids and IV antibiotics.
Physical therapy did recommend SNF however medical power of assistant city attorney declined and will be discharged home with visiting nurses along with 24-hour care that has been set up after that.
Head CT
IMPRESSION:
No evidence of acute intracranial abnormality.
Renal US
IMPRESSION: Limited visualization of the right kidney with no gross evidence for pelvicalyceal dilation. 2 nephroliths within the right kidney.
Dilation of the left renal pelvis with probable dilation of the left-sided calyces, suggesting moderate left pelvicalyceal dilation, similar appearance to previous ultrasound. Of note, central parapelvic renal cysts can sometimes be mistaken for
calyceal dilation.
There are several additional left renal cysts. Two nephroliths are seen within the left kidney.
Layer of debris within the bladder lumen. Bilateral ureteral jets are demonstrated. Trabeculated bladder wall.
CT AP
IMPRESSION:
Dependent layer of calcifications within the posterior aspect of the right renal pelvis, and extending into the lower pole calyx. However, no significant dilation of the right renal pelvis or calyces with no evidence for an obstructing calculus.
Moderate left calyceal and renal pelvic dilation with abrupt transition in caliber at the ureteropelvic junction, with no evidence for obstructing calculus. 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
Multiple small calcifications within the posterior aspect of the urinary bladder, probably multiple small bladder calculi. Stranding of the fat surrounding the urinary bladder, suggestive of cystitis.
No evidence for retroperitoneal hematoma. No evidence for acute hematoma involving the abdominal or pelvic wall.
Indirect left inguinal hernia, containing a portion of colon, with no findings to suggest obstruction or strangulation.
Brain MRI
IMPRESSION:
There are a few scattered tiny nonhemorrhagic acute/subacute infarcts within the bilateral periventricular/centrum semiovale regions and another within the left cerebellum.
Additional stable chronic findings and senescent changes as described.
Vascular US
IMPRESSION: Minimal carotid artery plaque bilaterally. Carotid velocity measurements bilaterally are consistent with less than 50% internal carotid artery stenosis. Vertebral artery flow is antegrade bilaterally.
Seen and examined on day of discharge which was 10/01/2025.
Spoke with Megan power of assistant city attorney. Provided full update.
No new complaints. No acute overnight events.
Temporal wasting, cachectic, comfortable in bed
Scleral Anicteric
MMM
CTABL
RRR, S1/S2
Soft, NT, ND, BS+
Warm, Dry
AAOx2
More than 30 minutes spent in discharge including
Final examination of the patient
Summarizing hospital stay
Instructions for continuing care to all relevant caregivers
Preparation of discharge records, prescriptions, and referral forms
Total time spent (in minutes): 33mins
Discharge Plan
-
Patient Disposition: Home with Home Care
Discharge Diagnosis/Procedures: vicenta
tme
acute/subacute cva
vascular dementia
depression
mrsa uti
apl
Other Services: VN, PT and OT
Activity Restrictions/Additional Instructions:
Presented with persistent confusion worsening generalized weakness and was also found to be anemic to 7.7 with a creatinine around 2.1. Admitted for toxic metabolic encephalopathy for which an MRI was completed that demonstrated nonhemorrhagic
acute/subacute infarcts within the bilateral periventricular/centrum semiovale regions and another within the left cerebellum. Seen by neurology recommended to keep Coumadin with in goal range of 2-3 along with continuation of Aricept Lexapro and
Keppra. It should be noted initially suspected toxic metabolic encephalopathy was secondary to MRSA UTI for which received total 7 days of IV vancomycin. Once, stroke was diagnosed and completed 7 days of IV antibiotics there was not a significant
improvement in his mental status however he was oriented to person and place but was withdrawn and poor eye contact therefore leading me to believe there is a large component of depression. Will need to follow-up with outpatient PCP to continue to
adjust antidepressants. Trazodone has been held while being inpatient due to increased daytime somnolence that was related to this agent.
Additionally, treated for acute kidney injury with an improvement in renal function after being provided IV fluids and IV antibiotics.
Physical therapy did recommend SNF however medical power of assistant city attorney declined and will be discharged home with visiting nurses along with 24-hour care that has been set up after that.
Head CT
IMPRESSION:
No evidence of acute intracranial abnormality.
Renal US
IMPRESSION: Limited visualization of the right kidney with no gross evidence for pelvicalyceal dilation. 2 nephroliths within the right kidney.
Dilation of the left renal pelvis with probable dilation of the left-sided calyces, suggesting moderate left pelvicalyceal dilation, similar appearance to previous ultrasound. Of note, central parapelvic renal cysts can sometimes be mistaken for
calyceal dilation.
There are several additional left renal cysts. Two nephroliths are seen within the left kidney.
Layer of debris within the bladder lumen. Bilateral ureteral jets are demonstrated. Trabeculated bladder wall.
CT AP
IMPRESSION:
Dependent layer of calcifications within the posterior aspect of the right renal pelvis, and extending into the lower pole calyx. However, no significant dilation of the right renal pelvis or calyces with no evidence for an obstructing calculus.
Moderate left calyceal and renal pelvic dilation with abrupt transition in caliber at the ureteropelvic junction, with no evidence for obstructing calculus. 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
Multiple small calcifications within the posterior aspect of the urinary bladder, probably multiple small bladder calculi. Stranding of the fat surrounding the urinary bladder, suggestive of cystitis.
No evidence for retroperitoneal hematoma. No evidence for acute hematoma involving the abdominal or pelvic wall.
Indirect left inguinal hernia, containing a portion of colon, with no findings to suggest obstruction or strangulation.
Brain MRI
IMPRESSION:
There are a few scattered tiny nonhemorrhagic acute/subacute infarcts within the bilateral periventricular/centrum semiovale regions and another within the left cerebellum.
Additional stable chronic findings and senescent changes as described.
Vascular US
IMPRESSION: Minimal carotid artery plaque bilaterally. Carotid velocity measurements bilaterally are consistent with less than 50% internal carotid artery stenosis. Vertebral artery flow is antegrade bilaterally.
Referrals:
Divina Luis CRNP [Specified Professional Personl, Neurology] - in two to three weeks
Alyssa Banda MD [Active, Oncology] - in two weeks
Jadiel Muñoz DO [Family Provider]
Prescriptions:
New
atorvastatin 40 mg Tablet
40 mg PO QPM Qty: 30 0RF
warfarin [Jantoven] 5 mg Tablet
5 mg PO QPM Qty: 30 0RF
Continued
therapeutic multivitamin Tablet
1 tab PO DAILY
escitalopram oxalate 20 mg Tablet
20 mg PO DAILY
cholecalciferol (vitamin D3) [Vitamin D3] 50 mcg (2,000 unit) Tablet
50 mcg PO DAILY
acetaminophen [Tylenol] 325 mg Tablet
650 mg PO Q6HPRN PRN (Reason: mild pain)
polyethylene glycol 3350 [Miralax] 17 gram Powder In Packet
17 g PO DAILYPRN PRN (Reason: constipation)
amlodipine [Norvasc] 10 mg Tablet
10 mg PO DAILY
bisacodyl [Dulcolax (bisacodyl)] 10 mg Suppository
10 mg NH DAILYPRN PRN (Reason: if no bm aftr mom)
Fleet Enema 19-7 gram/118 mL Enema
118 ml NH DAILYPRN PRN (Reason: if no bm aftr dulcolax)
donepezil 10 mg tablet
10 mg PO QPM
levetiracetam 500 mg tablet
500 mg PO BID
Discontinued
atorvastatin 20 mg Tablet
20 mg PO QPM
trazodone 50 mg Tablet
25 mg PO HS
Discharge Orders:
Discharge Patient (As Directed); Ordered 10/01/25
Ordered By: Aj Christie
Discharge Date and Time
Print Language: CITIZEN OF [place]
[2025-10-01 12:34] LABS: INR 2.30; PT 25.5 Sec (11.4-14.6)
--- NOTE | 2025-10-01 12:43 | W.PN.NEPH.PH ---
Today's Communication / Plan
-
follow BMP
Assessment/Plan
-
Impression:
ADOLFO
CKD 3b (1.4.-18)
MRSAUTI presentation
Presentation with weakness/mental status changes
History of antiphospholipid antibody syndrome
History of cognitive impairment and behavioral disorder
Anemia
Thrombocytopenia
Hypertension
History of seizure disorder
left kidney stones non obst
Plan:
follow BMP
IV iron course
-
-
Date of Service: October 01, 2025
CC / HPI / ROS
-
Chief Complaint:
ADOLFO with CKD
History of Present Illness:
cr down to 1.7 baseline stable
BP stable , no fever
hgb up to 10.2
on IV iron for iron deficiency
Review of Systems:
awake, answers questions
no CP/SOB
Labs
-
Labs:
WBC 4.1 10^3/uL (4.8-10.8) L 10/01/25 06:52
RBC 3.59 10^6/uL (4.70-6.10) L 10/01/25 06:52
Hgb 10.2 g/dL (13.0-18.0) L 10/01/25 06:52
Hct 31.3 % (39.0-52.0) L 10/01/25 06:52
Plt Count 82 10^3/uL (130-400) L 10/01/25 06:52
Sodium 139 mmol/L (135-145) 10/01/25 06:52
Potassium 4.1 mmol/L (3.5-5.1) 10/01/25 06:52
Chloride 107 mmol/L (98-107) 10/01/25 06:52
Carbon Dioxide 26 mmol/L (22-30) 10/01/25 06:52
BUN 17 mg/dl (9-20) 10/01/25 06:52
Creatinine 1.7 mg/dL (0.7-1.3) H 10/01/25 06:52
eGFR 42.83 10/01/25 06:52
Glucose 95 mg/dl (70-99) 10/01/25 06:52
Calcium 9.0 mg/dl (8.4-10.2) 10/01/25 06:52
Albumin 3.5 g/dl (3.5-5.0) 09/23/25 14:18
Physical Exam
-
Vital Signs:
Vital Signs
Temp Pulse Resp BP Pulse Ox
98.7 F 86 18 124/75 96
10/01/25 07:15 10/01/25 08:46 10/01/25 07:15 10/01/25 08:46 10/01/25 08:45
Cardiovascular:: Regular rate and rhythm
Respiratory:: Bilateral: CTA
Lung Excursion:: Normal
Abdomen:: Nontender and Soft
Bowel Sounds:: Normal
Extremity Edema:: None: Bilateral:
--- NOTE | 2025-10-01 13:06 | CM ---
entered order for discharge.
PT indicates SNF.
Spoke with patient in room . He requested Home with Margarito STEWART
Megan his friend said she wants him at home with Margarito STEW[facility] .
Megan arranged 24 hr care givers at home.
IMM reviewed with Megan she agrees with dc
Spoke with ana Pimentel requested INR be drawn and called to DR Carter [phone]. to send script with pt.
Pt max assist of 2 with [facility]. Megan requested ambulance Medical nec form completed.
PLAN Home with Margarito [phone]
[2025-10-01 15:24] VITALS: BP 112/59
== END 2025-10-01 16:15 | disposition home health service (06) | DRG 871 ==
LOC: 4 EAST ACU 16:59
PROVIDERS: Specialist; ADMITTING PHYSICIAN Hospitalist; ATTENDING PHYSICIAN Hospitalist; CONSULT PHYSICIAN Internal Medicine Gastroenterology; CONSULT PHYSICIAN Psychiatry & Neurology Neurology; CONSULT PHYSICIAN Specialist; EMERGENCY PHYSICIAN Emergency Medicine; FAMILY PHYSICIAN Internal Medicine; OTHER PHYSICIAN Internal Medicine Hematology & Oncology
PROC: 30233N1 Transfusion of Nonautologous Red Blood Cells into Peripheral Vein, Percutaneous Approach (ICD-10-PCS; 2025-09-25)
DX: A41.02 Sepsis due to Methicillin resistant Staphylococcus aureus (principal); G92.8 Other toxic encephalopathy; I63.9 Cerebral infarction, unspecified; D68.61 Antiphospholipid syndrome; F01.518 Vascular dementia, unspecified severity, with other behavioral disturbance; I69.351 Hemiplegia and hemiparesis following cerebral infarction affecting right dominant side; N17.9 Acute kidney failure, unspecified; D61.818 Other pancytopenia; D69.3 Immune thrombocytopenic purpura; F01.53 Vascular dementia, unspecified severity, with mood disturbance; N39.0 Urinary tract infection, site not specified; E44.0 Moderate protein-calorie malnutrition; Z68.1 Body mass index [BMI] 19.9 or less, adult; R64 Cachexia; R65.20 Severe sepsis without septic shock; I12.9 Hypertensive chronic kidney disease with stage 1 through stage 4 chronic kidney disease, or unspecified chronic kidney disease; N18.32 Chronic kidney disease, stage 3b; F32.A Depression, unspecified; N28.1 Cyst of kidney, acquired; N32.89 Other specified disorders of bladder; D63.1 Anemia in chronic kidney disease; G40.909 Epilepsy, unspecified, not intractable, without status epilepticus; E78.00 Pure hypercholesterolemia, unspecified; R76.89 Other specified abnormal immunological findings in serum; N21.0 Calculus in bladder; K40.90 Unilateral inguinal hernia, without obstruction or gangrene, not specified as recurrent; Z60.2 Problems related to living alone; I69.398 Other sequelae of cerebral infarction; Z88.0 Allergy status to penicillin; Z75.1 Person awaiting admission to adequate facility elsewhere; Z87.440 Personal history of urinary (tract) infections; Z79.899 Other long term (current) drug therapy; Z79.01 Long term (current) use of anticoagulants
CPT/HCPCS: 70450; 70551; 74176; 76770; 80048; 80053; 80202; 81003; 81015; 82570; 82607; 82728; 82746; 83010; 83516; 83540; 83550; 83615; 84155; 84156; 84165; 84439; 84443; 85025; 85027; 85045; 85384; 85610; 86063; 86160; 86850; 86900; 86901; 86920; 87040; 87086; 87147; 87186; 92523; 92610; 93880; 97110; 97163; 97167; 97530; 99285; J2916; P9016